=== PATIENT | female | born 1970 ===

== ENCOUNTER 2018-03-01 20:13 | Inpatient (IN) | payer SELFPAY ==
[2018-03-01 20:14] VITALS: BMI 26.6
[2018-03-01] MEDS ORDERED: Sodium Chloride 0.9% 1,000 ML IV ONE (20:42)
--- NOTE | 2018-03-01 20:46 | C.PDOC ---
History Of Present Illness 47 year old female presents to the ED c/o right sided chest pain for the past few days. Patient states pain worsens with deep breathing, patient reports she has had a cough as well. Patient denies fever, chills, nausea, vomit, palpit ations, SOB, recent travel, sick contacts. Chief Complaint (Nursing): Chest Pain History Per: Patient History/Exam Limitations: no limitations Onset/Duration Of Symptoms: Days Current Symptoms Are (Timing): Still Present Quality: "Pain" Exacerbating Factors: Deep Breathing Recent travel outside of the [place]: No Additional History Per: Patient Past Medical History Reviewed: Historical Data, Nursing Documentation, Vital Signs Vital Signs: Last Vital Signs Temp 99.5 F 03/01/18 20:25 Pulse 83 03/01/18 20:25 Resp 18 03/01/18 20:25 BP 152/98 H 03/01/18 20:25 Pulse Ox 98 03/01/18 20:25 - Medical History PMH: HTN (on meds, but can't remember name) Surgical History: No Surg Hx - [facility] INJECT/INFUSE NEC (01/16/13) Family History: States: Unknown Family Hx - Social History Hx Tobacco Use: No Hx Alcohol Use: No Hx Substance Use: No - Immunization History Hx Tetanus Toxoid Vaccination: Yes Hx Influenza Vaccination: Yes Hx Pneumococcal Vaccination: No Review Of Systems Constitutional: Negative for: Fever, Chills Cardiovascular: Positive for: Chest Pain. Negative for: Palpitations Respiratory: Positive for: Cough. Negative for: Shortness of Breath Gastrointestinal: Negative for: Nausea, Vomiting Skin: Negative for: Rash Neurological: Negative for: Weakness, Numbness Physical Exam - Physical Exam Appears: Non-toxic, No Acute Distress Skin: Normal Color, Warm, Dry Head: Atraumatic, Normacephalic Eye(s): bilateral: Normal Inspection Neck: Normal ROM, Supple Chest: Symmetrical, No Tenderness Cardiovascular: Rhythm Regular Respiratory: Normal Breath Sounds, No Rales, No Rhonchi, No Wheezing Gastrointestinal/Abdominal: Soft, No Tenderness, No Guarding, No Rebound Extremity: Normal ROM, No Tenderness, No Swelling Neurological/Psych: Oriented x3, Normal Speech, Normal Cognition Gait: Steady ED Course And Treatment - Laboratory Results Result Diagrams: 03/01/18 21:09 03/01/18 21:09 ECG: Interpreted By Me, Viewed By Me ECG Rhythm: Sinus Rhythm ECG Interpretation: Normal, No Acute Changes Interpretation Of ECG: NSR, normal tracings. Rate From EC O2 Sat by Pulse Oximetry: 98 (ON RA) Pulse Ox Interpretation: Normal - CT Scan/US CTA chest Other Rad Studies (CT/US): Read By Radiologist, Radiology Report Reviewed CT/US Interpretation: Date of service: 03/01/2018. Procedure. CTA Chest for PE. History. Chest pain. Elevated D-dimer. Comparison. None. Technique. Scans are obtained with the bolus injection of IV contrast media. . Intravenous contrast Dose: VISI 100 MLS. . Radiation dose: Total exam DLP = 377.69 mGy-cm. . This CT exam was performed using one or more of the following dose reduction techniques: Automated exposure control, adjustment of the mA and/or kV according to patient size, and/or use of iterative reconstruction technique. Findings. Note is made of extensive bilateral central pulmonary embolism with involvement of right and left central pulmonary arteries and extending to the virtually all bilateral segmental and subsegmental levels. The aorta is normal caliber and there is no dissection of the intima. . There is rounded opacity in the right lung base that may represent pulmonary infarct. . There is evidence of scattered bilateral pulmonary opacities that may represent pulmonary edema. Small hiatal hernia is seen. . No defect is seen in the pulmonary arteries to suggest pulmonary embolus. The lungs are fully expanded and there is no pleural effusion. . There are no enlarged mediastinal or hilar lymph nodes. . The bony structures appear intact. No change is seen in the included upper abdominal structures. . Impression. 1. Extensive bilateral PE as above. 2. There is rounded opacity in the right lung base that may represent pulmonary infarct. 3. There is evidence of scattered bilateral pulmonary opacities that may represent pulmonary edema. 4. Discussed with MARIE Quevedo at 11:50 AM EST. . Electronically signed on Mar 02, 2018 12:28:57 AM EDT by: Obi Church M.D., CHEMO Certified By [facility] & [facility]. Fellowship Trained MRI and CT Specialist Medical Decision Making Medical Decision Making: Plan: * EKG * Labs * CXR * IV fluids * Toradol [address] Ross spoken to and will accept the patient for admission. ICU filtration supervisor Dr. Angela Benson called, came and evaluated the patient at bedside and states patient is stable for telemetry admission with lovenox. Disposition Discussed With : Chung Ross Doctor Will See Patient In The: Hospital Counseled Patient/Family Regarding: Diagnosis - Disposition Disposition: HOSPITALIZED Disposition Time: 00:10 Condition: STABLE Forms: [facility] (Maldivian) - Clinical Impression Clinical Impression: Chest pain, Bilateral pulmonary embolism - Scribe Statement The provider has reviewed the documentation as recorded by the Scribe Jonas Foreman All medical record entries made by the Scribe were at my direction and personally dictated by me. I have reviewed the chart and agree that the record accurately reflects my personal performance of the history, physical exam, medical decision making, and the department course for this patient. I have also personally directed, reviewed, and agree with the discharge instructions and di sposition.
[2018-03-01 21:14] LABS: BASO % 0.5 % (0.0-2.0); EOS # 0.1 K/uL (0.0-0.7); EOS % 1.9 % (0.0-4.0); LYMPH # 1.8 K/uL (1.0-4.3); MEAN CORPUSCULAR HEMOGLOBIN 19.6 pg (27.0-31.0); MEAN CORPUSCULAR HGB CONC 31.3 g/dL (33.0-37.0); MEAN PLATELET VOLUME 7.5 fL (7.2-11.7); MONO # 0.5 K/uL (0.0-0.8); NEUT # 4.3 K/uL (1.8-7.0); NEUT % 63.6 % (50.0-75.0); RBC 4.49 Mil/uL (3.80-5.20); RED CELL DISTRIBUTION WIDTH 20.2 % (11.5-14.5)
[2018-03-01 21:20] LABS: HEMOGLOBIN 8.8 g/dL (11.0-16.0); MEAN CELL VOLUME 62.5 fL (81.0-99.0); WHITE BLOOD COUNT 6.8 K/uL (4.8-10.8)
[2018-03-01 21:23] LABS: INR 1.1; PROTHROMBIN TIME 11.6 SECONDS (9.7-12.2)
[2018-03-01 21:27] LABS: ALB/GLOB RATIO 1.1 (1.0-2.1); ALBUMIN 3.9 g/dL (3.5-5.0); ALT/SGPT 13 U/L (9-52); AST/SGOT 20 U/L (14-36); BLOOD UREA NITROGEN 17 mg/dL (7-17); CALCIUM 8.9 mg/dl (8.6-10.4); GFR NON-AFRICAN AMERICAN > 60
[2018-03-01] MEDS ORDERED: Iodixanol 320 MG/ML 100 ML BOTTLE IV ONE (21:37)
[2018-03-01] MEDS ORDERED: Sodium Chloride 0.9% 1,000 ML ONE (21:46)
[2018-03-02] MEDS ORDERED: Enoxaparin 80 mg Syringe SC STA (00:13)
[2018-03-02] MEDS ORDERED: Enoxaparin 80 mg Syringe ONE (00:30)
[2018-03-02 00:34] LABS: B-TYPE NATRIURETIC PEPTIDE 307 pg/mL (0-450)
--- NOTE | 2018-03-02 01:43 | CP.PCM.HP ---
Addendum entered and electronically signed by Chung Ross MD 03/02/18 07:55: Will consult hematology, grades 9 thru 12 visiting teacher to assist in planning the course. Addendum entered and electronically signed by Chung Ross MD 03/02/18 07:46: Patient will need planned treatment, as the risk of menorrhagia bleeding will worse with anticoagulation, especially when she is off the HRT, once the patient is on anticoagulation the active clots may stabilize, and surgery to hysterectomy vs fibroid removal may be planned. In case the bleeding is active and surgery could not be performed patient may need temporary on hormone replacement and anticoagulation assuming the balance between clotting and not is shifted toward not on anticoagulation. Original Note: <Danitza Sullivan - Last Filed: 03/02/18 01:43> History of Present Illness - History of Present Illness History of Present Illness: Danitza Sullivan PGY1 Progress Note for Dr. Ross Pt is a 47yo F with PMH of HTN, fibroids who presents to the ED with shortness of breath for 3 days. She feels it at rest mostly, but claims it was provoked yesterday with housework. She reports that she feels it on the R side than left. She denies a previous history of this. She claims to have recently started OCPs for heavy vaginal bleeding which she attributes to fibroids. She reports associated dizziness, but denies any chest pain, palpitations, sweating, nausea, vomiting, diarrhea. SxH: ectopic removal FamH: mom- DM SocH: denies tobacco, etoh, or recreational drug use Meds: lisinopril 5 and sprintec (OCP) Allergies: NKDA PMD: Dr. Cummings Present on Admission - Present on Admission Any Indicators Present on Admission: Yes History of DVT/PE: Yes Review of Systems - Review of Systems Review of Systems: as per HPI Past Patient History - Past Social History Smoking Status: Never Smoked - CARDIAC Hx Hypertension: Yes (on meds, but can't remember name) - GENITOURINARY/GYNECOLOGICAL Other/Comment: ectopic - PSYCHIATRIC Hx Substance Use: No - SURGICAL HISTORY Hx Surgeries: Yes Other/Comment: ectopic - ANESTHESIA Hx Anesthesia: Yes Hx Anesthesia Reactions: No Meds Allergies/Adverse Reactions: Allergies Allergy/AdvReac Type Severity Reaction Status Date / Time No Known Allergies Allergy Verified 03/01/18 20:33 Physical Exam - Constitutional Appears: Well, No Acute Distress - Head Exam Head Exam: ATRAUMATIC, NORMOCEPHALIC - Eye Exam Eye Exam: EOMI, Normal appearance, PERRL Pupil Exam: NORMAL ACCOMODATION - ENT Exam ENT Exam: Mucous Membranes Moist, Normal Exam - Neck Exam Neck exam: Positive for: Normal Inspection Additional comments: no JVD b/l - Respiratory Exam Respiratory Exam: Clear to Auscultation Bilateral, NORMAL BREATHING PATTERN. absent: Rales, Rhonchi, Wheezes - Cardiovascular Exam Cardiovascular Exam: REGULAR RHYTHM, +S1, +S2. absent: Gallop, Rubs, Systolic Murmur - GI/Abdominal Exam GI & Abdominal Exam: Normal Bowel Sounds, Soft. absent: Distended, Tenderness - Extremities Exam Extremities exam: Positive for: normal inspection. Negative for: pedal edema, tenderness - Neurological Exam Neurological exam: Alert, Oriented x3 - Psychiatric Exam Psychiatric exam: Normal Affect, Normal Mood - Skin Skin Exam: Normal Color Results - Vital Signs Recent Vital Signs: Last Vital Signs Temp 99.5 F 03/01/18 20:25 Pulse 72 03/02/18 01:30 Resp 17 03/02/18 01:30 BP 166/97 H 03/02/18 01:30 Pulse Ox 98 03/02/18 01:30 - Labs Result Diagrams: 03/01/18 21:09 03/01/18 21:09 Labs: Laboratory Results - last 24 hr 03/01/18 03/01/18 03/01/18 21:09 21:09 21:09 WBC 6.8 D RBC 4.49 Hgb 8.8 L D Hct 28.1 L MCV 62.5 L D MCH 19.6 L MCHC 31.3 L RDW 20.2 H Plt Count 508 H D MPV 7.5 Neut % (Auto) 63.6 Lymph % (Auto) 27.0 [place] % (Auto) 7.0 Eos % (Auto) 1.9 Baso % (Auto) 0.5 Neut # (Auto) 4.3 Lymph # (Auto) 1.8 [place] # (Auto) 0.5 Eos # (Auto) 0.1 Baso # (Auto) 0.0 Differential Comment PT 11.6 INR 1.1 APTT 26 D-Dimer, Quantitative 781 H Sodium 139 Potassium 3.8 Chloride 104 Carbon Dioxide 23 Anion Gap 15 BUN 17 Creatinine 0.9 Est GFR ( Amer) > 60 Est GFR (Non-Af Amer) > 60 Random Glucose 132 H Calcium 8.9 Total Bilirubin 0.5 AST 20 ALT 13 Alkaline Phosphatase 68 Troponin I < 0.0120 NT-Pro-B Natriuret Pep Total Protein 7.4 Albumin 3.9 Globulin 3.6 Albumin/Globulin Ratio 1.1 03/02/18 00:11 WBC RBC Hgb Hct MCV MCH MCHC RDW Plt Count MPV Neut % (Auto) Lymph % (Auto) [place] % (Auto) Eos % (Auto) Baso % (Auto) Neut # (Auto) Lymph # (Auto) [place] # (Auto) Eos # (Auto) Baso # (Auto) Differential Comment PT INR APTT D-Dimer, Quantitative Sodium Potassium Chloride Carbon Dioxide Anion Gap BUN Creatinine Est GFR ( Amer) Est GFR (Non-Af Amer) Random Glucose Calcium Total Bilirubin AST ALT Alkaline Phosphatase Troponin I < 0.0120 NT-Pro-B Natriuret Pep 307 Total Protein Albumin Globulin Albumin/Globulin Ratio Assessment & Plan - Assessment and Plan (Free Text) Assessment: 47yo F with PMH HTN and fibroids presents to ED with shortness of breath, found to have b/l PE and is admitted for further evaluation and treatment. Plan: B/L PE - CT angio: b/l PE - pt with shortness of breath, recently started taking combination OCP - D-dimer: 781 - BNP: 307 - EKG: NSR @82 bpm - no evidence of R heart strain - lovenox 80 SC q12 - f/u CT abd/pel - f/u b/l LE doppler - f/u ECHO Anemia - H/H: 8.8/28.1 - microcytic - likely secondary to h/o heavy vaginal bleeding - start feosol 325 daily - f/u AM CBC HTN - BP 166/97 - continue home lisinopril Uterine Fibroids - Pelvic US (10/10): 3.9mm intramural/subserosal uterine fibroid - likely cause of heavy vaginal bleeding - d/c OCP - consider outpt management PPX: DVT: on therapeutic lovenox regular diet Case seen and plan discussed with Dr. Ross <Chung Ross P - Last Filed: 03/02/18 07:00> Results - Vital Signs Recent Vital Signs: Last Vital Signs Temp 98.7 F 03/02/18 02:00 Pulse 76 03/02/18 02:05 Resp 20 03/02/18 02:00 BP 159/110 H 03/02/18 02:00 Pulse Ox 98 03/02/18 02:00 - Labs Result Diagrams: 03/01/18 21:09 03/01/18 21:09 Labs: Laboratory Results - last 24 hr 03/01/18 03/01/18 03/01/18 21:09 21:09 21:09 WBC 6.8 D RBC 4.49 Hgb 8.8 L D Hct 28.1 L MCV 62.5 L D MCH 19.6 L MCHC 31.3 L RDW 20.2 H Plt Count 508 H D MPV 7.5 Neut % (Auto) 63.6 Lymph % (Auto) 27.0 [place] % (Auto) 7.0 Eos % (Auto) 1.9 Baso % (Auto) 0.5 Neut # (Auto) 4.3 Lymph # (Auto) 1.8 [place] # (Auto) 0.5 Eos # (Auto) 0.1 Baso # (Auto) 0.0 Differential Comment PT 11.6 INR 1.1 APTT 26 D-Dimer, Quantitative 781 H Sodium 139 Potassium 3.8 Chloride 104 Carbon Dioxide 23 Anion Gap 15 BUN 17 Creatinine 0.9 Est GFR ( Amer) > 60 Est GFR (Non-Af Amer) > 60 Random Glucose 132 H Calcium 8.9 Total Bilirubin 0.5 AST 20 ALT 13 Alkaline Phosphatase 68 Troponin I < 0.0120 NT-Pro-B Natriuret Pep Total Protein 7.4 Albumin 3.9 Globulin 3.6 Albumin/Globulin Ratio 1.1 03/02/18 00:11 WBC RBC Hgb Hct MCV MCH MCHC RDW Plt Count MPV Neut % (Auto) Lymph % (Auto) [place] % (Auto) Eos % (Auto) Baso % (Auto) Neut # (Auto) Lymph # (Auto) [place] # (Auto) Eos # (Auto) Baso # (Auto) Differential Comment PT INR APTT D-Dimer, Quantitative Sodium Potassium Chloride Carbon Dioxide Anion Gap BUN Creatinine Est GFR ( Amer) Est GFR (Non-Af Amer) Random Glucose Calcium Total Bilirubin AST ALT Alkaline Phosphatase Troponin I < 0.0120 NT-Pro-B Natriuret Pep 307 Total Protein Albumin Globulin Albumin/Globulin Ratio Attending/Attestation - Attestation I have personally seen and examined this patient.: Yes I have fully participated in the care of the patient.: Yes I have reviewed all pertinent clinical information: Yes Notes (Text): Assessment * Extensive b/l central PE with hemodynamic stability at rest and no hypoxia at rest, no signs of RV strain on initial assessment * Hypercoagulability recent risk factor OC pill for menorrhagia, with h/o uterine fibroids * Microcytic anemia most likely due to above * No family h/o hypercoagulable state, no h/o smoking * On CT cyst noticed in left kidney on partial evaluation of upper abd in Chest CT Plan * Therapeutic anticoagulation, started on lovenox * Echo, LE venous dopplers * OC pill held * CT abd/pelvis ordered to assess renal cyst * Patient has high risk of blood loss due to anticoagulation and possibilty of prbc need in future, continue iron, fa for increased production mean while, will probably need surg in near future, to prevent recurrence of similar event.
--- NOTE | 2018-03-02 01:45 | CP.PCM.CON ---
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 Patient notes pain worsen upon deep breathing. Patient denies any dyspnea, deneis any dizizness, denies any palpitation. pmx: HTn meds: lisinopril and progrsterone allergeis: denies Review of Systems - Review of Systems All systems: reviewed and no additional remarkable complaints except Past Patient History - Tetanus Immunizations Tetanus Immunization: Unknown - Past Social History Smoking Status: Never Smoked - CARDIAC Hx Hypertension: Yes (on meds, but can't remember name) - GENITOURINARY/GYNECOLOGICAL Other/Comment: ectopic - PSYCHIATRIC Hx Substance Use: No - SURGICAL HISTORY Hx Surgeries: Yes Other/Comment: ectopic - ANESTHESIA Hx Anesthesia: Yes Hx Anesthesia Reactions: No Meds Allergies/Adverse Reactions: Allergies Allergy/AdvReac Type Severity Reaction Status Date / Time No Known Allergies Allergy Verified 03/01/18 20:33 - Medications Medications: Current Medications Enoxaparin Sodium (Lovenox) 80 mg SC Q12 GABY Ferrous Sulfate (Feosol) 325 mg PO DAILY GABY Sodium Chloride (Sodium Chloride 0.9%) 1,000 mls @ 100 mls/hr IV .Q10H ONE Stop: 03/02/18 06:41 Last Admin: 03/01/18 21:40 Dose: 100 mls/hr Physical Exam - Head Exam Head Exam: ATRAUMATIC, NORMAL INSPECTION, NORMOCEPHALIC - Eye Exam Pupil Exam: NORMAL ACCOMODATION - ENT Exam ENT Exam: Mucous Membranes Moist - Respiratory Exam Respiratory Exam: Clear to Auscultation Bilateral, Rales, NORMAL BREATHING PATTERN Additional comments: rales right lower lobe - Cardiovascular Exam Cardiovascular Exam: REGULAR RHYTHM, +S1, +S2. absent: Tachycardia, Systolic Murmur - GI/Abdominal Exam GI & Abdominal Exam: Normal Bowel Sounds, Soft. absent: Guarding, Hernia, Rebound, Rigid - Extremities Exam Extremities exam: Positive for: full ROM, normal capillary refill, normal inspection, pedal pulses present. Negative for: joint swelling - Neurological Exam Neurological exam: Alert, CN II-XII Intact, Oriented x3 - Skin Skin Exam: Normal Color Results - Vital Signs Recent Vital Signs: Last Vital Signs Temp 99.5 F 03/01/18 20:25 Pulse 72 03/02/18 01:30 Resp 17 03/02/18 01:30 BP 166/97 H 03/02/18 01:30 Pulse Ox 98 03/02/18 01:30 - Labs Result Diagrams: 03/01/18 21:09 03/01/18 21:09 Labs: Laboratory Results - last 24 hr 03/01/18 03/01/18 03/01/18 21:09 21:09 21:09 WBC 6.8 D RBC 4.49 Hgb 8.8 L D Hct 28.1 L MCV 62.5 L D MCH 19.6 L MCHC 31.3 L RDW 20.2 H Plt Count 508 H D MPV 7.5 Neut % (Auto) 63.6 Lymph % (Auto) 27.0 [place] % (Auto) 7.0 Eos % (Auto) 1.9 Baso % (Auto) 0.5 Neut # (Auto) 4.3 Lymph # (Auto) 1.8 [place] # (Auto) 0.5 Eos # (Auto) 0.1 Baso # (Auto) 0.0 Differential Comment PT 11.6 INR 1.1 APTT 26 D-Dimer, Quantitative 781 H Sodium 139 Potassium 3.8 Chloride 104 Carbon Dioxide 23 Anion Gap 15 BUN 17 Creatinine 0.9 Est GFR ( Amer) > 60 Est GFR (Non-Af Amer) > 60 Random Glucose 132 H Calcium 8.9 Total Bilirubin 0.5 AST 20 ALT 13 Alkaline Phosphatase 68 Troponin I < 0.0120 NT-Pro-B Natriuret Pep Total Protein 7.4 Albumin 3.9 Globulin 3.6 Albumin/Globulin Ratio 1.1 03/02/18 00:11 WBC RBC Hgb Hct MCV MCH MCHC RDW Plt Count MPV Neut % (Auto) Lymph % (Auto) [place] % (Auto) Eos % (Auto) Baso % (Auto) Neut # (Auto) Lymph # (Auto) [place] # (Auto) Eos # (Auto) Baso # (Auto) Differential Comment PT INR APTT D-Dimer, Quantitative Sodium Potassium Chloride Carbon Dioxide Anion Gap BUN Creatinine Est GFR ( Amer) Est GFR (Non-Af Amer) Random Glucose Calcium Total Bilirubin AST ALT Alkaline Phosphatase Troponin I < 0.0120 NT-Pro-B Natriuret Pep 307 Total Protein Albumin Globulin Albumin/Globulin Ratio Assessment & Plan - Assessment and Plan (Free Text) Assessment: -PE: patient has b/l PE, suspect chronic as there are no signs of right heart strain, BNP normal, trop neg, consider lovenox 1 mg/kg (noraml kidney function), cehck echo and LE dopplers -Anemia: suspect MCV low, menorrhagia related, check fecal occult blood, check iron profile, ferritin and TIBC, likely iron deficiency anemia -menorrhagia: obtain quiller runner eval for possible hormonal ring -dvt ppx on lovenox -pud ppx consider oral pepcid -Patient was informed of her diagnosis and risks, benefits and alternatives. -please obtain social services technician consult for medicaid forms (patient has no insurance) -age appropriate cancer screening Patient does not have insurance. Would start patient on anticoagulation, consi sammie lovenox and oral coumadin (cheaper than NOAC). Patient remains hemodynamically stable and saturating 99% on room air. pending echo, LE dopplers, fecal occult blood and christian science reader consult for age approp riate cancer screening. Please call ICU if patient's clinical status worsens. - Date & Time Date: 03/02/18 Time: 01:53
[2018-03-02 07:43] LABS: BASO % 0.6 % (0.0-2.0); EOS # 0.3 K/uL (0.0-0.7); EOS % 4.4 % (0.0-4.0); HEMOGLOBIN 8.5 g/dL (11.0-16.0); LYMPH % 33.4 % (20.0-40.0); MEAN CELL VOLUME 62.5 fL (81.0-99.0); MEAN CORPUSCULAR HEMOGLOBIN 19.6 pg (27.0-31.0); MEAN CORPUSCULAR HGB CONC 31.4 g/dL (33.0-37.0); MEAN PLATELET VOLUME 7.5 fL (7.2-11.7); MONO # 0.5 K/uL (0.0-0.8); MONO % 7.8 % (0.0-10.0); NEUT # 3.2 K/uL (1.8-7.0); NEUT % 53.8 % (50.0-75.0); RBC 4.34 Mil/uL (3.80-5.20); RED CELL DISTRIBUTION WIDTH 20.3 % (11.5-14.5); WHITE BLOOD COUNT 5.9 K/uL (4.8-10.8)
[2018-03-02 08:04] LABS: ALB/GLOB RATIO 1.1 (1.0-2.1); ALBUMIN 3.4 g/dL (3.5-5.0); ALT/SGPT 11 U/L (9-52); AST/SGOT 11 U/L (14-36); BLOOD UREA NITROGEN 14 mg/dL (7-17); CALCIUM 8.5 mg/dl (8.6-10.4); GFR NON-AFRICAN AMERICAN > 60
[2018-03-02 08:18] LABS: IRON 11 ug/dL (37-170)
[2018-03-02 08:30] LABS: % IRON SATURATION 3 (20-55); FERRITIN 5.1 ng/mL; TOTAL IRON BINDING CAPACITY 356 ug/dL (250-450)
--- NOTE | 2018-03-02 08:46 | RAD ---
HISTORY: Chest pain COMPARISON: No prior. TECHNIQUE: Chest PA and lateral FINDINGS: LINES AND TUBES: None. LUNG AND PLEURA: The lungs are well inflated and clear. There is a small right pleural effusion. No pneumothorax. HEART AND MEDIASTINUM: The heart is not enlarged. The hilar and mediastinal contours are within normal limits. SKELETAL STRUCTURES: The bony structures are within normal limits for the patient's age. VISUALIZED UPPER ABDOMEN: Normal. OTHER FINDINGS: None. IMPRESSION: Small right pleural effusion.
--- NOTE | 2018-03-02 09:21 | CP.PCM.PN ---
Subjective - Date & Time of Evaluation Date of Evaluation: 03/02/18 Time of Evaluation: 08:40 - Subjective Subjective: Pt examined at bedside. No acute events overnight. Pt reports she continues to have right sided chest/flank/back pain, worse w/ deep inspiration. Pt reports she has just begun her period, and bleeding lightly. Pt denies SOB, abd pain, nausea. Pt denies any history of clots Objective - Vital Signs/Intake and Output Vital Signs (last 24 hours): Temp Pulse Resp BP Pulse Ox 98.1 F 82 18 113/74 98 03/02/18 07:00 03/02/18 07:15 03/02/18 07:00 03/02/18 07:00 03/02/18 07:00 - Medications Medications: Current Medications Enoxaparin Sodium (Lovenox) 80 mg SC Q12 GABY Ferrous Sulfate (Feosol) 325 mg PO DAILY GABY Lisinopril (Zestril) 5 mg PO DAILY GABY - Labs Labs: 03/02/18 07:34 03/02/18 07:34 PT 11.6 SECONDS (9.7-12.2) 03/01/18 21:09 INR 1.1 03/01/18 21:09 APTT 26 SECONDS (21-34) 03/01/18 21:09 - Constitutional Appears: No Acute Distress - Head Exam Head Exam: ATRAUMATIC, NORMAL INSPECTION, NORMOCEPHALIC - Eye Exam Eye Exam: EOMI, Normal appearance - ENT Exam ENT Exam: Mucous Membranes Moist, Normal Exam - Neck Exam Neck Exam: Normal Inspection - Respiratory Exam Respiratory Exam: Decreased Breath Sounds, Clear to Ausculation Bilateral, NORMAL BREATHING PATTERN. absent: Rhonchi, Wheezes - Cardiovascular Exam Cardiovascular Exam: REGULAR RHYTHM, +S1, +S2. absent: Tachycardia, Murmur - GI/Abdominal Exam GI & Abdominal Exam: Soft, Normal Bowel Sounds. absent: Distended, Tenderness - Extremities Exam Extremities Exam: Normal Capillary Refill, Normal Inspection. absent: Calf Tenderness, Pedal Edema - Neurological Exam Neurological Exam: Alert, Awake, Oriented x3 - Psychiatric Exam Psychiatric exam: Normal Affect, Normal Mood - Skin Skin Exam: Dry, Intact, Normal Color, Warm Assessment and Plan - Assessment and Plan (Free Text) Assessment: 47 yo F w/ PMHx of HTN and fibroids admitted w/ diffuse B/L PEs PE -CT read: extensive B/L PE -f/u LE dopplers -hormones for menorrhagia 2/2 fibroids stopped -Lovenox 70mg q12 -f/u hypercoaguable labs -Heme consult Dr. Rangel Fibroids -pt refused pelic exam w/ sign erector -Template Cutter consult Dr. Walker Anemia -continue to monitor HTN -lisinopril 5mg po qd
[2018-03-02] MEDS ORDERED: Enoxaparin 80 mg Syringe SC SCH (10:00)
--- NOTE | 2018-03-02 11:05 | CT ---
Date of service: 03/01/2018 CTA chest PE protocol Indication: Chest pain/elevated D-dimer Technique: Contiguous axial images were obtained through the chest with intravenous contrast enhancement. Sagittal and coronal reconstructions were generated and reviewed. This CT exam was performed using 1 or more of the following dose reduction techniques: Automated exposure control, adjustment of the MAA and/or kV according to patient size, and/or use of iterative reconstruction technique. IV contrast: 100 mL Visipaque IV Radiation dose (DLP): 377.69 MGy-cm. Comparison: Chest x-ray performed 03/01/18 Findings: Visualized portions of the inferior thyroid gland appear unremarkable. The mediastinal and hilar vascular structures appear within normal limits. The heart appears within normal limits of size. Bilateral pulmonary emboli are identified extending from the right left central pulmonary arteries into bilateral segmental/subsegmental levels. Mild rounded opacity at the right lung base. No pleural effusion. No pneumothorax. Limited visualized portions of the upper abdomen; partially imaged 3.7 x 4.4 cm, 7 HU hypodensity, consistent with cyst. Mild degenerative changes. Impression: Extensive bilateral pulmonary emboli as above. Mild rounded opacity at the right lung base may reflect infarction, infiltrate, or atelectasis. Preliminary impression was provided by [facility]. Findings discussed by radiologist Dr. Randall with MARIE Quevedo at 11:50 a.m. on 03/01/18
--- NOTE | 2018-03-02 13:36 | CT ---
Date of service: 03/02/2018 PROCEDURE: CT Abdomen and Pelvis with Oral contrast. HISTORY: pt with b/l pe COMPARISON: Correlation made CTA chest 03/11/2018. TECHNIQUE: Contiguous axial images of the abdomen and pelvis. Coronal and Sagittal reformats generated. Radiation dose: Total exam DLP = 624.73 mGy-cm. This CT exam was performed using one or more of the following dose reduction techniques: Automated exposure control, adjustment of the mA and/or kV according to patient size, and/or use of iterative reconstruction technique. FINDINGS: LOWER THORAX: Small right-sided effusion with suspected and associated minor right basilar atelectasis. LIVER: Unremarkable. No gross lesion or ductal dilatation. GALLBLADDER AND BILE DUCTS: There is dense material within the lumen of the gallbladder likely representing vicarious excretion of intravenous contrast material from recent CTA of the chest 03/01/2018 PANCREAS: Unremarkable. No m the unenhanced pancreas appears unremarkable. SPLEEN: Unremarkable. No splenomegaly. ADRENALS: No adrenal lesions.. KIDNEYS AND URETERS: . There is a large exophytic cyst arising from the upper pole left kidney which measures approximately 4.5 x 4.5 cm. There also appears to be some residual contrast material in both renal collecting systems. No evidence of hydronephrosis. BLADDER: Urinary bladder also contains dilute excreted intravenous contrast material. No evidence of intraluminal urinary bladder calculi. REPRODUCTIVE: Slightly prominent/bulky appearing uterus with questionable exophytic fibroid along the left the uterine fundus versus left ovary. APPENDIX: Normal-appearing appendix. BOWEL: Evaluation of the bowel is somewhat limited due to the lack of oral contrast material. Stomach is distended with food debris liquid and air. Visualized loops of small bowel exhibit normal contour and caliber. No evidence of acute mechanical small bowel obstruction. Large amount of stool is seen throughout the cecum ascending and transverse and less so the proximal descending colon consistent with mild fecal retention/constipation. PERITONEUM: There is a small amount of free fluid in the cul de sac.. No free air. Small hiatal hernia. LYMPH NODES: Unremarkable. No enlarged lymph nodes. VASCULATURE: Unremarkable. No aortic aneurysm. BONES: Minor multilevel degenerative spondylosis of the lower thoracic and lumbar spine. OTHER FINDINGS: None. IMPRESSION: Small right-sided effusion and minor right basilar atelectasis. Large exophytic left renal cyst. Questionable small uterine fibroid as above versus left ovary. Findings consistent with mild constipation. Small amount of free fluid within the cul de sac.
--- NOTE | 2018-03-02 17:24 | CP.PCM.CON ---
<Darrel Turcios - Last Filed: 03/02/18 17:04> History of Present Illness - History of Present Illness History of Present Illness: SOLAR ELECTRIC PRACTITIONER Consult Note CC "vaginal bleeding, fibroids" HPI: Patient is a 47 year old female with history of hypertension, anemia and fibroids who was initially admitted for 3 day history of chest pain and shortness of breath. CT angio revealed bilateral PE and patient is currently treated with Lovenox 80mg SC Q12. SOLAR ELECTRIC PRACTITIONER consulted for history of fibroid for which patient was recently started on OCPs. Patient was recently started on OCP Sprintec [address] Ayala, her architectural drafting instructor at [facility] in [place]. She was started on OCPs rec ently because patient reportedly had a 2 month history of daily heavy vaginal bleeding. She was told she had a fibroid that is approximately the "size of an egg". Pelvic US from September 2017 revealed 3.9mm intramural/subserosal uterine fibroid. As per patient, OCPs helped with her daily vaginal bleeding. Patient states she only had 4 pills left on her 28 day pack of pills prior to her admission, and started having some mild vaginal bleeding today. She denies abdominal pain, nausea, vomiting currently. She denies chest pain and shortness of breath currently. She states she discussed the possibility of surgery with her architectural drafting instructor however patient states she does not have insurance. PMH: HTN, fibroids, anemia PSH: ectopic 2010 Meds: Lisinopril 5mg daily, Fe pills daily, Family hx: Mother aged 75, has HTN, DM. No history of cancer of breast, ovary or uterus in family. Social hx: Denies alcohol, tobacco and drug use. 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 Lives with her 2 children, aged 27 and 25. POBhx: x2 without complication, 2 children - 27 year old male, and 25 year old female. Age of menarche- 14, periods last 6 days and comes every 28 days. (+) Known prior history of fibroid, no prior history of ovarian cyst. Last Pap smear 2014, no prior history of STIs. Not sexually active. Review of Systems - Constitutional Constitutional: absent: Chills, Fever - EENT Eyes: absent: Change in Vision Ears: absent: Decreased Hearing - Cardiovascular Cardiovascular: absent: Chest Pain, Dyspnea - Respiratory Respiratory: absent: Cough - Gastrointestinal Gastrointestinal: absent: Abdominal Pain, Diarrhea, Nausea, Vomiting - Genitourinary Genitourinary: absent: Dysuria, Hematuria - Reproductive: Female Reproductive:Female: Light Menses - Musculoskeletal Musculoskeletal: absent: Back Pain - Neurological Neurological: absent: Confusion, Headaches, Syncope - Psychiatric Psychiatric: absent: Anxiety, Depression Past Patient History - Tetanus Immunizations Tetanus Immunization: Unknown - Past Social History Smoking Status: Never Smoked - CARDIAC Hx Hypertension: Yes (on meds, but can't remember name) - MUSCULOSKELETAL/RHEUMATOLOGICAL Hx Falls: No - GENITOURINARY/GYNECOLOGICAL Other/Comment: ectopic - PSYCHIATRIC Hx Substance Use: No - SURGICAL HISTORY Hx Surgeries: Yes Other/Comment: ectopic - ANESTHESIA Hx Anesthesia: Yes Hx Anesthesia Reactions: No Meds Allergies/Adverse Reactions: Allergies Allergy/AdvReac Type Severity Reaction Status Date / Time No Known Allergies Allergy Verified 03/01/18 20:33 - Medications Medications: Current Medications Enoxaparin Sodium (Lovenox) 70 mg SC Q12 [facility] Ferrous Sulfate (Feosol) 325 mg PO DAILY [facility] Last Admin: 03/02/18 11:38 Dose: 325 mg Lisinopril (Zestril) 5 mg PO DAILY [facility] Last Admin: 03/02/18 11:39 Dose: 5 mg Physical Exam - Constitutional Appears: No Acute Distress - Head Exam Head Exam: ATRAUMATIC, NORMAL INSPECTION - Eye Exam Eye Exam: EOMI - ENT Exam ENT Exam: Mucous Membranes Moist - Neck Exam Neck exam: Positive for: Full Rom - Respiratory Exam Respiratory Exam: Clear to Auscultation Bilateral. absent: Decreased Breath Sounds - Cardiovascular Exam Cardiovascular Exam: REGULAR RHYTHM, +S1, +S2. absent: Gallop, Rubs, Systolic Murmur - GI/Abdominal Exam GI & Abdominal Exam: Normal Bowel Sounds, Soft. absent: Distended, Firm, Guarding, Mass, Tenderness - Exam Additional comments: Patient refused pelvic exam - Extremities Exam Extremities exam: Positive for: pedal pulses present. Negative for: calf tenderness - Back Exam Back exam: absent: CVA tenderness (L), CVA tenderness (R) - Neurological Exam Neurological exam: Alert, Oriented x3 - Skin Skin Exam: Dry, Intact, Warm Results - Vital Signs Recent Vital Signs: Last Vital Signs Temp 98.1 F 03/02/18 15:00 Pulse 69 03/02/18 15:00 Resp 20 03/02/18 15:00 BP 136/95 H 03/02/18 15:00 Pulse Ox 99 03/02/18 15:00 - Labs Result Diagrams: 03/02/18 07:34 03/02/18 07:34 Labs: Laboratory Results - last 24 hr 03/01/18 03/01/18 03/01/18 21:09 21:09 21:09 WBC 6.8 D RBC 4.49 Hgb 8.8 L D Hct 28.1 L MCV 62.5 L D MCH 19.6 L MCHC 31.3 L RDW 20.2 H Plt Count 508 H D MPV 7.5 Neut % (Auto) 63.6 Lymph % (Auto) 27.0 [place] % (Auto) 7.0 Eos % (Auto) 1.9 Baso % (Auto) 0.5 Neut # (Auto) 4.3 Lymph # (Auto) 1.8 [place] # (Auto) 0.5 Eos # (Auto) 0.1 Baso # (Auto) 0.0 Differential Comment Retic Count PT 11.6 INR 1.1 APTT 26 D-Dimer, Quantitative 781 H Sodium 139 Potassium 3.8 Chloride 104 Carbon Dioxide 23 Anion Gap 15 BUN 17 Creatinine 0.9 Est GFR ( Amer) > 60 Est GFR (Non-Af Amer) > 60 Random Glucose 132 H Calcium 8.9 Iron TIBC % Saturation Transferrin Ferritin Total Bilirubin 0.5 AST 20 ALT 13 Alkaline Phosphatase 68 Troponin I < 0.0120 NT-Pro-B Natriuret Pep Total Protein 7.4 Albumin 3.9 Globulin 3.6 Albumin/Globulin Ratio 1.1 Vitamin B12 Folate Beta HCG, Quant 03/02/18 03/02/18 03/02/18 00:11 07:34 07:34 WBC 5.9 RBC 4.34 Hgb 8.5 L Hct 27.1 L MCV 62.5 L MCH 19.6 L MCHC 31.4 L RDW 20.3 H Plt Count 491 H MPV 7.5 Neut % (Auto) 53.8 Lymph % (Auto) 33.4 [place] % (Auto) 7.8 Eos % (Auto) 4.4 H Baso % (Auto) 0.6 Neut # (Auto) 3.2 Lymph # (Auto) 2.0 [place] # (Auto) 0.5 Eos # (Auto) 0.3 Baso # (Auto) 0.0 Differential Comment Retic Count 1.9 H PT INR APTT D-Dimer, Quantitative Sodium 143 Potassium 4.0 Chloride 106 Carbon Dioxide 23 Anion Gap 18 BUN 14 Creatinine 0.8 Est GFR ( Amer) > 60 Est GFR (Non-Af Amer) > 60 Random Glucose 82 Calcium 8.5 L Iron TIBC % Saturation Transferrin Ferritin 5.1 Total Bilirubin 0.4 AST 11 L D ALT 11 Alkaline Phosphatase 63 Troponin I < 0.0120 NT-Pro-B Natriuret Pep 307 Total Protein 6.5 Albumin 3.4 L Globulin 3.1 Albumin/Globulin Ratio 1.1 Vitamin B12 Folate Beta HCG, Quant < 2.39 03/02/18 03/02/18 03/02/18 07:34 07:34 07:34 WBC RBC Hgb Hct MCV MCH MCHC RDW Plt Count MPV Neut % (Auto) Lymph % (Auto) [place] % (Auto) Eos % (Auto) Baso % (Auto) Neut # (Auto) Lymph # (Auto) [place] # (Auto) Eos # (Auto) Baso # (Auto) Differential Comment Retic Count PT INR APTT D-Dimer, Quantitative Sodium Potassium Chloride Carbon Dioxide Anion Gap BUN Creatinine Est GFR ( Amer) Est GFR (Non-Af Amer) Random Glucose Calcium Iron 11 L TIBC 356 % Saturation 3 L Transferrin 263.91 Ferritin Total Bilirubin AST ALT Alkaline Phosphatase Troponin I NT-Pro-B Natriuret Pep Total Protein Albumin Globulin Albumin/Globulin Ratio Vitamin B12 259 Folate 9.0 Beta HCG, Quant Assessment & Plan - Assessment and Plan (Free Text) Assessment: 47 year old female with history of HTN, anemia, fibroids who was initially admitted for 3 day history of chest pain and shortness of breath. Patient was found to have bilateral PE on CT angio. Patient was recently started on OCPs for history of heavy vaginal bleeding and fibroids. Patient started mild vaginal bleeding today. Plan: A/P Vaginal bleeding -Patient declined pelvic exam -Likely secondary to normal menses, since patient only had 4 pills left -Discontinue OCPs -Follow up with outpatient SOLAR ELECTRIC PRACTITIONER on discharge. Darrel Turcios, PGY1 Case discussed with Dr. Shantal Arellano <Shantal Arellano - Last Filed: 10/08/18 19:14> Meds - Medications Medications: Current Medications Enoxaparin Sodium (Lovenox) 70 mg SC Q12 [facility] Ferrous Sulfate (Feosol) 325 mg PO DAILY [facility] Last Admin: 03/02/18 11:38 Dose: 325 mg Lisinopril (Zestril) 5 mg PO DAILY [facility] Last Admin: 03/02/18 11:39 Dose: 5 mg Results - Vital Signs Recent Vital Signs: Last Vital Signs Temp 98.1 F 03/02/18 15:00 Pulse 69 03/02/18 15:00 Resp 20 03/02/18 15:00 BP 136/95 H 03/02/18 15:00 Pulse Ox 99 03/02/18 15:00 - Labs Result Diagrams: 03/02/18 07:34 03/02/18 07:34 Labs: Laboratory Results - last 24 hr 03/01/18 03/01/18 03/01/18 21:09 21:09 21:09 WBC 6.8 D RBC 4.49 Hgb 8.8 L D Hct 28.1 L MCV 62.5 L D MCH 19.6 L MCHC 31.3 L RDW 20.2 H Plt Count 508 H D MPV 7.5 Neut % (Auto) 63.6 Lymph % (Auto) 27.0 [place] % (Auto) 7.0 Eos % (Auto) 1.9 Baso % (Auto) 0.5 Neut # (Auto) 4.3 Lymph # (Auto) 1.8 [place] # (Auto) 0.5 Eos # (Auto) 0.1 Baso # (Auto) 0.0 Differential Comment Retic Count PT 11.6 INR 1.1 APTT 26 D-Dimer, Quantitative 781 H Sodium 139 Potassium 3.8 Chloride 104 Carbon Dioxide 23 Anion Gap 15 BUN 17 Creatinine 0.9 Est GFR ( Amer) > 60 Est GFR (Non-Af Amer) > 60 Random Glucose 132 H Calcium 8.9 Iron TIBC % Saturation Transferrin Ferritin Total Bilirubin 0.5 AST 20 ALT 13 Alkaline Phosphatase 68 Troponin I < 0.0120 NT-Pro-B Natriuret Pep Total Protein 7.4 Albumin 3.9 Globulin 3.6 Albumin/Globulin Ratio 1.1 Vitamin B12 Folate Beta HCG, Quant 03/02/18 03/02/18 03/02/18 00:11 07:34 07:34 WBC 5.9 RBC 4.34 Hgb 8.5 L Hct 27.1 L MCV 62.5 L MCH 19.6 L MCHC 31.4 L RDW 20.3 H Plt Count 491 H MPV 7.5 Neut % (Auto) 53.8 Lymph % (Auto) 33.4 [place] % (Auto) 7.8 Eos % (Auto) 4.4 H Baso % (Auto) 0.6 Neut # (Auto) 3.2 Lymph # (Auto) 2.0 [place] # (Auto) 0.5 Eos # (Auto) 0.3 Baso # (Auto) 0.0 Differential Comment Retic Count 1.9 H PT INR APTT D-Dimer, Quantitative Sodium 143 Potassium 4.0 Chloride 106 Carbon Dioxide 23 Anion Gap 18 BUN 14 Creatinine 0.8 Est GFR ( Amer) > 60 Est GFR (Non-Af Amer) > 60 Random Glucose 82 Calcium 8.5 L Iron TIBC % Saturation Transferrin Ferritin 5.1 Total Bilirubin 0.4 AST 11 L D ALT 11 Alkaline Phosphatase 63 Troponin I < 0.0120 NT-Pro-B Natriuret Pep 307 Total Protein 6.5 Albumin 3.4 L Globulin 3.1 Albumin/Globulin Ratio 1.1 Vitamin B12 Folate Beta HCG, Quant < 2.39 03/02/18 03/02/18 03/02/18 07:34 07:34 07:34 WBC RBC Hgb Hct MCV MCH MCHC RDW Plt Count MPV Neut % (Auto) Lymph % (Auto) [place] % (Auto) Eos % (Auto) Baso % (Auto) Neut # (Auto) Lymph # (Auto) [place] # (Auto) Eos # (Auto) Baso # (Auto) Differential Comment Retic Count PT INR APTT D-Dimer, Quantitative Sodium Potassium Chloride Carbon Dioxide Anion Gap BUN Creatinine Est GFR ( Amer) Est GFR (Non-Af Amer) Random Glucose Calcium Iron 11 L TIBC 356 % Saturation 3 L Transferrin 263.91 Ferritin Total Bilirubin AST ALT Alkaline Phosphatase Troponin I NT-Pro-B Natriuret Pep Total Protein Albumin Globulin Albumin/Globulin Ratio Vitamin B12 259 Folate 9.0 Beta HCG, Quant
--- NOTE | 2018-03-02 17:48 | CARD ---
APPROVED REPORT Date of service: 03/02/2018 EXAM: Two-dimensional and M-mode echocardiogram with Doppler and color Doppler. Other Information Quality : GoodRhythm : INDICATION Pulmonary Embolism Chest Pain 2D DIMENSIONS IVSd0.9 (0.7-1.1cm)LVDd4.0 (3.9-5.9cm) PWd1.0 (0.7-1.1cm)LA [id number] (18-58mL) LVDs2.5 (2.5-4.0cm)FS (%) 38.4 % LVEF (%)69.3 (>50%)LVEF (Gregory's)63.61 % M-Mode DIMENSIONS Left Atrium (MM)4.05 (2.5-4.0cm)IVSd0.71 (0.7-1.1cm) Aortic Root2.99 (2.2-3.7cm)LVDd4.56 (4.0-5.6cm) Aortic Cusp Exc.1.97 (1.5-2.0cm)PWd0.80 (0.7-1.1cm) FS (%) 36 %LVDs2.92 (2.0-3.8cm) LVEF (%)66 (>50%) Mitral Valve MV E Vkofcmae88.2cm/sMV A Sghaullr83.8cm/sE/A ratio0.9 TDI Lateral E' Peak V10.22cm/sMedial E' Peak V7.84cm/sE/Lateral E'8.2 E/Medial E'10.7 Tricuspid Valve TR Peak Fafyqrpp540xa/sTR Peak Gr.28dbLkSOMJ61rhRr LEFT VENTRICLE The left ventricle is normal size. There is normal left ventricular wall thickness. The left ventricular function is normal. The left ventricular ejection fraction is within the normal range. There is normal LV segmental wall motion. RIGHT VENTRICLE The right ventricle is normal size. There is normal right ventricular wall thickness. The right ventricular systolic function is normal. ATRIA The left atrium is borderline dilated. The right atrium size is normal. AORTIC VALVE The aortic valve is normal in structure. No aortic regurgitation is present. There is no aortic valvular stenosis. MITRAL VALVE The mitral valve is moderately thickened. There is no mitral valve stenosis. There is no mitral valve regurgitation noted. TRICUSPID VALVE The tricuspid valve is normal in structure. There is no tricuspid valve regurgitation noted. PULMONIC VALVE The pulmonary valve is normal in structure. There is no pulmonic valvular regurgitation. GREAT VESSELS The aortic root is normal in size. The IVC is normal in size and collapses >50% with inspiration. PERICARDIAL EFFUSION There is no pericardial effusion. <Conclusion> The left ventricle is normal size. There is normal left ventricular wall thickness. The left ventricular function is normal. The left ventricular ejection fraction is within the normal range. There is normal LV segmental wall motion. The right ventricle is normal size. The right ventricular systolic function is normal.
--- NOTE | 2018-03-02 18:35 | CARD ---
APPROVED REPORT Date of service: 03/01/2018 EKG Measurement Heart [id number] <Conclusion> Normal sinus rhythm Normal ECG
--- NOTE | 2018-03-02 20:31 | CP.PCM.CON ---
History of Present Illness - History of Present Illness History of Present Illness: 47 year old female with no past medical history on OCP's admitted with PE and iron deficiency anemia. The patient reports to heavyperiods for which she was prescribed oral contraceptives. She notes to progressive shortness of breath which prompted her to come to the ER. In the ER, she was found to have PE. She is currently on anticoagulation and reports to feeling better. She denies immobility or trauma to her extremities. Past medical history: Menorrhagia, iron deficiency anemia Past surgical history: Denies Family history: Denies hematologic and oncologic problems Social history: Denies tobacco, alcohol, and illicit drug use. Allergies: NKA Review of systems: All remaining review of systems including HEENT, cardiovascular, respiratory, gastrointestinal, genitourinary, musculoskeletal, dermatologic, neurologic, and psychiatric are negative unless mentioned in the HPI. Past Patient History - Tetanus Immunizations Tetanus Immunization: Unknown - Past Social History Smoking Status: Never Smoked - CARDIAC Hx Hypertension: Yes (on meds, but can't remember name) - MUSCULOSKELETAL/RHEUMATOLOGICAL Hx Falls: No - GENITOURINARY/GYNECOLOGICAL Other/Comment: ectopic - PSYCHIATRIC Hx Substance Use: No - SURGICAL HISTORY Hx Surgeries: Yes Other/Comment: ectopic - ANESTHESIA Hx Anesthesia: Yes Hx Anesthesia Reactions: No Meds Home Medications: Home Medication List Medication Instructions Recorded Confirmed Type Apixaban [Eliquis] 5 mg PO ASDIR #1 tab.ds.pk 03/03/18 Rx Ferrous Sulfate [Feosol] 325 mg PO DAILY #30 tab 03/03/18 Rx Lisinopril [Zestril] 5 mg PO DAILY #30 tab 03/03/18 Rx Allergies/Adverse Reactions: Allergies Allergy/AdvReac Type Severity Reaction Status Date / Time No Known Allergies Allergy Verified 03/01/18 20:33 - Medications Medications: Current Medications Enoxaparin Sodium (Lovenox) 70 mg SC Q12 [facility] Ferrous Sulfate (Feosol) 325 mg PO DAILY [facility] Last Admin: 03/02/18 11:38 Dose: 325 mg Lisinopril (Zestril) 5 mg PO DAILY [facility] Last Admin: 03/02/18 11:39 Dose: 5 mg Physical Exam - Head Exam Head Exam: ATRAUMATIC - Eye Exam Eye Exam: Normal appearance - ENT Exam ENT Exam: Mucous Membranes Dry - Respiratory Exam Respiratory Exam: NORMAL BREATHING PATTERN - Cardiovascular Exam Cardiovascular Exam: +S1, +S2 - GI/Abdominal Exam GI & Abdominal Exam: Normal Bowel Sounds - Extremities Exam Extremities exam: Positive for: normal inspection - Neurological Exam Neurological exam: Oriented x3 - Psychiatric Exam Psychiatric exam: Normal Affect, Normal Mood - Skin Skin Exam: Warm Results - Vital Signs Recent Vital Signs: Last Vital Signs Temp 98.1 F 03/02/18 15:00 Pulse 69 03/02/18 15:00 Resp 20 03/02/18 15:00 BP 136/95 H 03/02/18 15:00 Pulse Ox 99 03/02/18 15:00 - Labs Result Diagrams: 03/03/18 06:08 03/03/18 06:08 Labs: Laboratory Results - last 24 hr 03/01/18 03/01/18 03/01/18 21:09 21:09 21:09 WBC 6.8 D RBC 4.49 Hgb 8.8 L D Hct 28.1 L MCV 62.5 L D MCH 19.6 L MCHC 31.3 L RDW 20.2 H Plt Count 508 H D MPV 7.5 Neut % (Auto) 63.6 Lymph % (Auto) 27.0 [place] % (Auto) 7.0 Eos % (Auto) 1.9 Baso % (Auto) 0.5 Neut # (Auto) 4.3 Lymph # (Auto) 1.8 [place] # (Auto) 0.5 Eos # (Auto) 0.1 Baso # (Auto) 0.0 Differential Comment Retic Count PT 11.6 INR 1.1 APTT 26 D-Dimer, Quantitative 781 H Sodium 139 Potassium 3.8 Chloride 104 Carbon Dioxide 23 Anion Gap 15 BUN 17 Creatinine 0.9 Est GFR ( Amer) > 60 Est GFR (Non-Af Amer) > 60 Random Glucose 132 H Calcium 8.9 Iron TIBC % Saturation Transferrin Ferritin Total Bilirubin 0.5 AST 20 ALT 13 Alkaline Phosphatase 68 Troponin I < 0.0120 NT-Pro-B Natriuret Pep Total Protein 7.4 Albumin 3.9 Globulin 3.6 Albumin/Globulin Ratio 1.1 Vitamin B12 Folate Beta HCG, Quant 03/02/18 03/02/18 03/02/18 00:11 07:34 07:34 WBC 5.9 RBC 4.34 Hgb 8.5 L Hct 27.1 L MCV 62.5 L MCH 19.6 L MCHC 31.4 L RDW 20.3 H Plt Count 491 H MPV 7.5 Neut % (Auto) 53.8 Lymph % (Auto) 33.4 [place] % (Auto) 7.8 Eos % (Auto) 4.4 H Baso % (Auto) 0.6 Neut # (Auto) 3.2 Lymph # (Auto) 2.0 [place] # (Auto) 0.5 Eos # (Auto) 0.3 Baso # (Auto) 0.0 Differential Comment Retic Count 1.9 H PT INR APTT D-Dimer, Quantitative Sodium 143 Potassium 4.0 Chloride 106 Carbon Dioxide 23 Anion Gap 18 BUN 14 Creatinine 0.8 Est GFR ( Amer) > 60 Est GFR (Non-Af Amer) > 60 Random Glucose 82 Calcium 8.5 L Iron TIBC % Saturation Transferrin Ferritin 5.1 Total Bilirubin 0.4 AST 11 L D ALT 11 Alkaline Phosphatase 63 Troponin I < 0.0120 NT-Pro-B Natriuret Pep 307 Total Protein 6.5 Albumin 3.4 L Globulin 3.1 Albumin/Globulin Ratio 1.1 Vitamin B12 Folate Beta HCG, Quant < 2.39 03/02/18 03/02/18 03/02/18 07:34 07:34 07:34 WBC RBC Hgb Hct MCV MCH MCHC RDW Plt Count MPV Neut % (Auto) Lymph % (Auto) [place] % (Auto) Eos % (Auto) Baso % (Auto) Neut # (Auto) Lymph # (Auto) [place] # (Auto) Eos # (Auto) Baso # (Auto) Differential Comment Retic Count PT INR APTT D-Dimer, Quantitative Sodium Potassium Chloride Carbon Dioxide Anion Gap BUN Creatinine Est GFR ( Amer) Est GFR (Non-Af Amer) Random Glucose Calcium Iron 11 L TIBC 356 % Saturation 3 L Transferrin 263.91 Ferritin Total Bilirubin AST ALT Alkaline Phosphatase Troponin I NT-Pro-B Natriuret Pep Total Protein Albumin Globulin Albumin/Globulin Ratio Vitamin B12 259 Folate 9.0 Beta HCG, Quant Assessment & Plan (1) Bilateral pulmonary embolism Assessment and Plan: likely provoked from OCP's; pt to discontinue on therapeutic 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 Status: Acute
[2018-03-02] MEDS: Enoxaparin 80 mg Syringe SC SCH (21:12)
[2018-03-03 04:30] VITALS: O2SAT 97
[2018-03-03 06:22] LABS: BASO % 0.6 % (0.0-2.0); EOS # 0.3 K/uL (0.0-0.7); EOS % 5.3 % (0.0-4.0); HEMOGLOBIN 8.8 g/dL (11.0-16.0); LYMPH # 2.1 K/uL (1.0-4.3); LYMPH % 34.7 % (20.0-40.0); MEAN CELL VOLUME 63.2 fL (81.0-99.0); MEAN CORPUSCULAR HEMOGLOBIN 19.5 pg (27.0-31.0); MEAN CORPUSCULAR HGB CONC 30.9 g/dL (33.0-37.0); MEAN PLATELET VOLUME 7.4 fL (7.2-11.7); MONO # 0.5 K/uL (0.0-0.8); MONO % 8.4 % (0.0-10.0); NEUT # 3.1 K/uL (1.8-7.0); NRBC % 0.1 % (0.0-2.0); RBC 4.51 Mil/uL (3.80-5.20); RED CELL DISTRIBUTION WIDTH 20.1 % (11.5-14.5); WHITE BLOOD COUNT 6.1 K/uL (4.8-10.8)
[2018-03-03 06:46] LABS: ALB/GLOB RATIO 1.2 (1.0-2.1); ALBUMIN 3.4 g/dL (3.5-5.0); ALT/SGPT 17 U/L (9-52); AST/SGOT 15 U/L (14-36); BLOOD UREA NITROGEN 13 mg/dL (7-17); CALCIUM 8.2 mg/dl (8.6-10.4); GFR NON-AFRICAN AMERICAN > 60
--- NOTE | 2018-03-03 08:12 | CP.PCM.PN ---
Subjective - Date & Time of Evaluation Date of Evaluation: 03/03/18 Time of Evaluation: 07:50 - Subjective Subjective: Pt examined at bedside. No acute events overnight. When asked why pt refused pelvic exam by residency program coordinator yesterday pt reported she felt uncomfortable w/ the males in the room. I advised her that she could ask them to wait outside if she prefe rred. Pt reports minimal menstrual bleeding that began yesterday, just drops. Pt denies pelvic pain. Pt reports she had a headache again overnight which resolved w/ Tylenol; pt reports frequent headaches during menstruation relieved by Tylenol at home. Pt reports improvement in right sided chest/flank/back pain w/ deep inspiration. Denies SOB, cough, palpitations, abd pain, nausea. Objective - Vital Signs/Intake and Output Vital Signs (last 24 hours): Temp Pulse Resp BP Pulse Ox 98.3 F 65 18 121/86 97 03/03/18 07:00 03/03/18 07:00 03/03/18 07:00 03/03/18 07:00 03/03/18 07:00 - Medications Medications: Current Medications Acetaminophen (Tylenol 325mg Tab) 650 mg PO Q6 PRN PRN Reason: Headache Last Admin: 03/02/18 22:04 Dose: 650 mg Enoxaparin Sodium (Lovenox) 70 mg SC Q12 [facility] Last Admin: 03/02/18 21:12 Dose: 70 mg Ferrous Sulfate (Feosol) 325 mg PO DAILY [facility] Last Admin: 03/02/18 11:38 Dose: 325 mg Ferric Sodium Gluconate Complex 125 mg/ Sodium Chloride 110 mls @ 105 mls/hr IVPB DAILY [facility] Stop: 03/11/18 10:01 Lisinopril (Zestril) 5 mg PO DAILY [facility] Last Admin: 03/02/18 11:39 Dose: 5 mg - Labs Labs: 03/03/18 06:08 03/03/18 06:08 PT 11.6 SECONDS (9.7-12.2) 03/01/18 21:09 INR 1.1 03/01/18 21:09 APTT 26 SECONDS (21-34) 03/01/18 21:09 - Constitutional Appears: No Acute Distress - Head Exam Head Exam: ATRAUMATIC, NORMAL INSPECTION, NORMOCEPHALIC - Eye Exam Eye Exam: EOMI, Normal appearance - ENT Exam ENT Exam: Mucous Membranes Moist, Normal Exam - Neck Exam Neck Exam: Full ROM, Normal Inspection - Respiratory Exam Respiratory Exam: Decreased Breath Sounds (shallow breaths 2/2 pain), Clear to Ausculation Bilateral, NORMAL BREATHING PATTERN. absent: Rhonchi, Wheezes, Respiratory Distress - Cardiovascular Exam Cardiovascular Exam: REGULAR RHYTHM, +S1, +S2. absent: Tachycardia, Murmur - GI/Abdominal Exam GI & Abdominal Exam: Soft, Normal Bowel Sounds. absent: Distended, Tenderness - Extremities Exam Extremities Exam: Normal Inspection. absent: Calf Tenderness, Pedal Edema - Neurological Exam Neurological Exam: Alert, Awake, Oriented x3 - Psychiatric Exam Psychiatric exam: Normal Affect, Normal Mood - Skin Skin Exam: Dry, Intact, Normal Color, Warm Assessment and Plan - Assessment and Plan (Free Text) Assessment: 47 yo F w/ PMHx of HTN and fibroids admitted w/ extensive B/L PEs PE -CT read: extensive B/L PE, small right pleural effusion -f/u LE dopplers -hormones for menorrhagia 2/2 fibroids stopped -Lovenox 70mg q12 -f/u hypercoaguable labs -echo(03/02) shows no abnormalities -Heme consult Dr. Rangel Fibroids -CT abd/pelvis shows questionable small uterine fibroid and small amount of free fluid in the cul de sac. Incidental 4.5x4.5cm exophytic left renal cyst. -pt refused pelic exam w/ residency program coordinator due to males in room -Automatic Spooler Operator consult Dr. Walker Anemia(iron deficiency) -hgb 8.8 -ferrlecit 125mg qd -feosol 325mg qd -pt reports minimal menstrual blood loss -continue to monitor HTN -lisinopril 5mg po qd
[2018-03-03] MEDS ORDERED: Ferric Sodium Gluconat Complex 125 MG in Sodium Chloride 0.9% 100 ML IVPB SCH (10:00)
[2018-03-03] MEDS ORDERED: Ferric Sodium Gluconat Complex 62.5 mg/5 ml Vial IVPB SCH (10:00)
[2018-03-03] MEDS: Enoxaparin 80 mg Syringe SC SCH (10:18)
--- NOTE | 2018-03-03 14:08 | CP.PCM.DIS ---
<Yvette Arreguin - Last Filed: 03/03/18 17:03> Provider - Provider Date of Admission: 03/02/18 00:16 Attending physician: Chung Ross MD Time Spent in preparation of Discharge (in minutes): 29 Diagnosis - Discharge Diagnosis (1) Bilateral pulmonary embolism Status: Acute Comment: Extensive bilateral PE found on chest CT. Pt treated with anticoagulation in hospital and sent home to continue on anticoagulation. Hospital Course - Lab Results Lab Results: Most Recent Lab Values WBC 6.1 K/uL (4.8-10.8) 03/03/18 06:08 RBC 4.51 Mil/uL (3.80-5.20) 03/03/18 06:08 Hgb 8.8 g/dL (11.0-16.0) L 03/03/18 06:08 Hct 28.5 % (34.0-47.0) L 03/03/18 06:08 MCV 63.2 fL (81.0-99.0) L 03/03/18 06:08 MCH 19.5 pg (27.0-31.0) L 03/03/18 06:08 MCHC 30.9 g/dL (33.0-37.0) L 03/03/18 06:08 RDW 20.1 % (11.5-14.5) H 03/03/18 06:08 Plt Count 514 K/uL (130-400) H 03/03/18 06:08 MPV 7.4 fL (7.2-11.7) 03/03/18 06:08 Neut % (Auto) 51.0 % (50.0-75.0) 03/03/18 06:08 Lymph % (Auto) 34.7 % (20.0-40.0) 03/03/18 06:08 [place] % (Auto) 8.4 % (0.0-10.0) 03/03/18 06:08 Eos % (Auto) 5.3 % (0.0-4.0) H 03/03/18 06:08 Baso % (Auto) 0.6 % (0.0-2.0) 03/03/18 06:08 Neut # (Auto) 3.1 K/uL (1.8-7.0) 03/03/18 06:08 Lymph # (Auto) 2.1 K/uL (1.0-4.3) 03/03/18 06:08 [place] # (Auto) 0.5 K/uL (0.0-0.8) 03/03/18 06:08 Eos # (Auto) 0.3 K/uL (0.0-0.7) 03/03/18 06:08 Baso # (Auto) 0.0 K/uL (0.0-0.2) 03/03/18 06:08 Differential Comment 03/01/18 21:09 Retic Count 1.9 % (0.5-1.5) H 03/02/18 07:34 PT 11.6 SECONDS (9.7-12.2) 03/01/18 21:09 INR 1.1 03/01/18 21:09 APTT 26 SECONDS (21-34) 03/01/18 21:09 D-Dimer, Quantitative 781 ng/mlDDU (0-243) H 03/01/18 21:09 Sodium 138 mmol/L (132-148) 03/03/18 06:08 Potassium 4.0 mmol/L (3.6-5.2) 03/03/18 06:08 Chloride 105 mmol/L (98-107) 03/03/18 06:08 Carbon Dioxide 23 mmol/L (22-30) 03/03/18 06:08 Anion Gap 15 (10-20) 03/03/18 06:08 BUN 13 mg/dL (7-17) 03/03/18 06:08 Creatinine 0.7 mg/dL (0.7-1.2) 03/03/18 06:08 Est GFR ( Amer) > 60 03/03/18 06:08 Est GFR (Non-Af Amer) > 60 03/03/18 06:08 Random Glucose 77 mg/dL (65-105) 03/03/18 06:08 Calcium 8.2 mg/dl (8.6-10.4) L 03/03/18 06:08 Iron 11 ug/dL (37-170) L 03/02/18 07:34 TIBC 356 ug/dL (250-450) 03/02/18 07:34 % Saturation 3 (20-55) L 03/02/18 07:34 Transferrin 263.91 mg/dL (206-381) 03/02/18 07:34 Ferritin 5.1 ng/mL 03/02/18 07:34 Total Bilirubin 0.3 mg/dL (0.2-1.3) 03/03/18 06:08 AST 15 U/L (14-36) 03/03/18 06:08 ALT 17 U/L (9-52) 03/03/18 06:08 Alkaline Phosphatase 67 U/L (38-126) 03/03/18 06:08 Troponin I < 0.0120 ng/mL (0.00-0.120) 03/02/18 00:11 NT-Pro-B Natriuret Pep 307 pg/mL (0-450) 03/02/18 00:11 Total Protein 6.3 g/dL (6.3-8.3) 03/03/18 06:08 Albumin 3.4 g/dL (3.5-5.0) L 03/03/18 06:08 Globulin 2.9 gm/dL (2.2-3.9) 03/03/18 06:08 Albumin/Globulin Ratio 1.2 (1.0-2.1) 03/03/18 06:08 Vitamin B12 259 pg/mL (239-931) 03/02/18 07:34 Folate 9.0 ng/mL 03/02/18 07:34 Beta HCG, Quant < 2.39 mIU/ML 03/02/18 07:34 - Hospital Course Hospital Course: Pt evaluated and treated at [facility] from 03/01/18 to 03/03/18. In the ED pt received chest x-ray, EKG, Blood work including: CBC, Coags, CMP, and cardiac enzymes, all within normal limits. D-Dimer done in the ED was elevated promoing a Ct angio of the chest, showing extensive bilateral pulmonary emboli. Hematology Dr. Rangel was consulted and ordered hypercoaguable workup. Robotic Maintenance Technician was consulted to evaluate menorrhagia 2/2 history of uterine fibroids. Hormones to control menorrhagia were discontinued. Pt was anticoagulated with Lovenox 70 mg BID with moderate relief of symptoms. Pt currently stable for discharge. Anticoagulation transitioned to eliquis, pt will continue treatment outpatient and follow up in clinic. HPI on admission Pt is a 47yo F with PMH of HTN, fibroids who presents to the ED with shortness of breath for 3 days. She feels it at rest mostly, but claims it was provoked yesterday with housework. She reports that she feels it on the R side than left. She denies a previous history of this. She claims to have recently started OCPs for heavy vaginal bleeding which she attributes to fibroids. She reports associated dizziness, but denies any chest pain, palpitations, sweating, nausea, vomiting, diarrhea. Discharge Exam - Head Exam Head Exam: ATRAUMATIC, NORMAL INSPECTION, NORMOCEPHALIC - Eye Exam Eye Exam: EOMI, Normal appearance - ENT Exam ENT Exam: Mucous Membranes Moist, Normal Exam - Neck Exam Neck exam: Normal Inspection - Respiratory Exam Respiratory Exam: Decreased Breath Sounds, NORMAL BREATHING PATTERN, UNREMARKABLE - Cardiovascular Exam Cardiovascular Exam: REGULAR RHYTHM, +S1, +S2. absent: Tachycardia - GI/Abdominal Exam GI & Abdominal Exam: Normal Bowel Sounds, Soft, Unremarkable. absent: Tenderness - Extremities Exam Extremities exam: normal inspection - Neurological Exam Neurological exam: Alert, Normal Gait, Oriented x3 - Psychiatric Exam Psychiatric exam: Normal Affect, Normal Mood - Skin Skin Exam: Dry, Intact, Normal Color, Warm Discharge Plan - Discharge Medications Prescriptions: Apixaban [Eliquis] 5 mg PO ASDIR #1 tab.ds.pk RX: Ferrous Sulfate [Feosol] 325 mg PO DAILY #30 tab RX: Lisinopril [Zestril] 5 mg PO DAILY #30 tab - Follow Up Plan Condition: STABLE Disposition: HOME/ ROUTINE Instructions: Heart Healthy Diet, Pulmonary Embolism (Blood Clot in the Lungs) (DC), Chest Pain (DC), Apixaban, Ferrous Sulfate, Lisinopril Additional Instructions: Pt is being discharged home in stable condition. Pt is being given prescriptions to be filled and taken as directed. Pt is to take lisinopril 5mg daily. Pt is to take ferrous sulfate 325mg daily. Pt is to take Eliquis as instructed. For 7 days pt is to take 2 pills in the morning and 2 in the evening. Then after 7 days patient is to take 1 pill in the morning and 1 in the evening. Patient is to follow up in the clinic within 1 week of discharge. The clinic will continue Eliquis management as this must be continued for several months. Pt is instructed to follow up with Dr. Arellano, Dr. Rangel outpatient. Pt is instructed to take caution not to injure herself as blood t hinners can cause prolonged and excessive bleeding. Return to ED ith any worsening of symptoms. Pt se est descargando a casa en condicin estable. A Pt se le estn dando recetas para que las llene y las tome segn las indicaciones. Pt es josé miguel lisinopril 5mg diariamente. Pt es josé miguel 325 mg de sulfato ferroso diariamente. Pt es josé miguel Eliquis segn las instrucciones. Por 7 chamorro es josé miguel 2 pastillas por la maana y 2 por la tarde. Luego, despus de 7 chamorro, el paciente debe josé miguel 1 pldora por la maana y 1 por la noche. El paciente debe realizar un seguimiento en la clnica dentro de rosa semana despus del eloise. La clnica continuar con el manejo de Eliquis ya que esto debe continuar cosmo varios meses. Pt recibe instrucciones para hacer un seguimiento con el Dr. Palomares, el Dr. Rangel, paciente ambulatorio. Se le indica a Pt que tenga cuidado de no lastimarse, ya que los anticoagulantes pueden causar un sangrado prolongado y excesivo. Volver a la disfuncin erctil con cualquier empeoramiento de los sntomas. Referrals: Nidhi Lew MD [Staff Provider] - Shantal Arellano DO [Staff Provider] - Dhiraj Rangel MD [Staff Provider] - <Stephanie Thomas - Last Filed: 03/18/18 14:04> Provider - Provider Date of Admission: 03/02/18 00:16 Attending physician: Chung Ross MD Hospital Course - Lab Results Lab Results: Most Recent Lab Values WBC 6.1 K/uL (4.8-10.8) 03/03/18 06:08 RBC 4.51 Mil/uL (3.80-5.20) 03/03/18 06:08 Hgb 8.8 g/dL (11.0-16.0) L 03/03/18 06:08 Hct 28.5 % (34.0-47.0) L 03/03/18 06:08 MCV 63.2 fL (81.0-99.0) L 03/03/18 06:08 MCH 19.5 pg (27.0-31.0) L 03/03/18 06:08 MCHC 30.9 g/dL (33.0-37.0) L 03/03/18 06:08 RDW 20.1 % (11.5-14.5) H 03/03/18 06:08 Plt Count 514 K/uL (130-400) H 03/03/18 06:08 MPV 7.4 fL (7.2-11.7) 03/03/18 06:08 Neut % (Auto) 51.0 % (50.0-75.0) 03/03/18 06:08 Lymph % (Auto) 34.7 % (20.0-40.0) 03/03/18 06:08 [place] % (Auto) 8.4 % (0.0-10.0) 03/03/18 06:08 Eos % (Auto) 5.3 % (0.0-4.0) H 03/03/18 06:08 Baso % (Auto) 0.6 % (0.0-2.0) 03/03/18 06:08 Neut # (Auto) 3.1 K/uL (1.8-7.0) 03/03/18 06:08 Lymph # (Auto) 2.1 K/uL (1.0-4.3) 03/03/18 06:08 [place] # (Auto) 0.5 K/uL (0.0-0.8) 03/03/18 06:08 Eos # (Auto) 0.3 K/uL (0.0-0.7) 03/03/18 06:08 Baso # (Auto) 0.0 K/uL (0.0-0.2) 03/03/18 06:08 Differential Comment 03/01/18 21:09 Retic Count 1.9 % (0.5-1.5) H 03/02/18 07:34 PT 11.6 SECONDS (9.7-12.2) 03/01/18 21:09 INR 1.1 03/01/18 21:09 APTT 26 SECONDS (21-34) 03/01/18 21:09 D-Dimer, Quantitative 781 ng/mlDDU (0-243) H 03/01/18 21:09 Factor V see note 03/02/18 13:42 Sodium 138 mmol/L (132-148) 03/03/18 06:08 Potassium 4.0 mmol/L (3.6-5.2) 03/03/18 06:08 Chloride 105 mmol/L (98-107) 03/03/18 06:08 Carbon Dioxide 23 mmol/L (22-30) 03/03/18 06:08 Anion Gap 15 (10-20) 03/03/18 06:08 BUN 13 mg/dL (7-17) 03/03/18 06:08 Creatinine 0.7 mg/dL (0.7-1.2) 03/03/18 06:08 Est GFR ( Amer) > 60 03/03/18 06:08 Est GFR (Non-Af Amer) > 60 03/03/18 06:08 Random Glucose 77 mg/dL (65-105) 03/03/18 06:08 Calcium 8.2 mg/dl (8.6-10.4) L 03/03/18 06:08 Iron 11 ug/dL (37-170) L 03/02/18 07:34 TIBC 356 ug/dL (250-450) 03/02/18 07:34 % Saturation 3 (20-55) L 03/02/18 07:34 Transferrin 263.91 mg/dL (206-381) 03/02/18 07:34 Ferritin 5.1 ng/mL 03/02/18 07:34 Total Bilirubin 0.3 mg/dL (0.2-1.3) 03/03/18 06:08 AST 15 U/L (14-36) 03/03/18 06:08 ALT 17 U/L (9-52) 03/03/18 06:08 Alkaline Phosphatase 67 U/L (38-126) 03/03/18 06:08 Troponin I < 0.0120 ng/mL (0.00-0.120) 03/02/18 00:11 NT-Pro-B Natriuret Pep 307 pg/mL (0-450) 03/02/18 00:11 Total Protein 6.3 g/dL (6.3-8.3) 03/03/18 06:08 Albumin 3.4 g/dL (3.5-5.0) L 03/03/18 06:08 Globulin 2.9 gm/dL (2.2-3.9) 03/03/18 06:08 Albumin/Globulin Ratio 1.2 (1.0-2.1) 03/03/18 06:08 Vitamin B12 259 pg/mL (239-931) 03/02/18 07:34 Folate 9.0 ng/mL 03/02/18 07:34 Beta HCG, Quant < 2.39 mIU/ML 03/02/18 07:34 [id number] Ab 10 CARMENZA (<=20) 03/02/18 13:42 Beta-2 GPI IgG Ab 11 SGU (<=20) 03/02/18 13:42 Beta-2 GPI IgM Ab <9 SMU (<=20) 03/02/18 13:42 Phosphatidylserine IgG <10 U/mL (<10) 03/02/18 13:42 Phosphatidylserine IgA <20 U/mL (<20) 03/02/18 13:42 Phosphatidylserine IgM <25 U/mL (<25) 03/02/18 13:42 Anti-Phospholipid Intrp see note 03/02/18 13:42 Anti-Cardiolipin IgG Ab <14 GPL (<=14) 03/02/18 13:42 Anti-Cardiolipin IgA Ab <11 APL (<=11) 03/02/18 13:42 Anti-Cardiolipin IgM Ab <12 MPL (<=12) 03/02/18 13:42 Prothrombin Mut Interp see note 03/02/18 13:42 Prothrombin Gene Mutate see note 03/02/18 13:42 Prothromb Gene Review see note 03/02/18 13:42 Attending/Attestation - Attestation I have personally seen and examined this patient.: Yes I have fully participated in the care of the patient.: Yes I have reviewed all pertinent clinical information, including history, physical exam and plan: Yes
[2018-03-03 16:06] VITALS: BP 135/82; RESP 20; TEMP 97.5
[2018-03-03 16:47] VITALS: PULSE 84
--- NOTE | 2018-03-03 20:15 | CP.PCM.PN ---
Subjective - Date & Time of Evaluation Date of Evaluation: 03/03/18 Time of Evaluation: 12:00 - Subjective Subjective: Feeling better Objective - Vital Signs/Intake and Output Vital Signs (last 24 hours): Temp Pulse Resp BP Pulse Ox 97.5 F L 84 20 135/82 97 03/03/18 16:00 03/03/18 16:15 03/03/18 16:00 03/03/18 16:00 03/03/18 16:00 Intake and Output: 03/03/18 03/04/18 18:59 06:59 Intake Total 650 Balance 650 - Labs Labs: 03/03/18 06:08 03/03/18 06:08 PT 11.6 SECONDS (9.7-12.2) 03/01/18 21:09 INR 1.1 03/01/18 21:09 APTT 26 SECONDS (21-34) 03/01/18 21:09 - Head Exam Head Exam: ATRAUMATIC - Eye Exam Eye Exam: Normal appearance - ENT Exam ENT Exam: Mucous Membranes Dry - Respiratory Exam Respiratory Exam: NORMAL BREATHING PATTERN - Cardiovascular Exam Cardiovascular Exam: +S1, +S2 - GI/Abdominal Exam GI & Abdominal Exam: Normal Bowel Sounds Assessment and Plan (1) Bilateral pulmonary embolism Assessment & Plan: provoked from OCP's; pt discontinued therapeutic anticoagulation for 3-6 months f/u inherited thrombophilia w/u Status: Acute (2) Iron deficiency anemia Assessment & Plan: s/p IV iron CLINICAL PROJECT ASSISTANT evaluation PO iron Status: Acute
[2018-03-04] MEDS ORDERED: Pneumococcal 23-Valent Vaccine IM ONE (10:00)
--- NOTE | 2018-03-04 11:36 | VASCLAB ---
Date of service: 03/02/2018 PROCEDURE: Lower Extremity Venous Duplex Exam. HISTORY: Pulmonary embolism. PRIORS: None. TECHNIQUE: Bilateral common femoral, femoral, popliteal and posterior tibial, peroneal and great saphenous veins were evaluated. Flow was assessed with color Doppler, compressibility, assessment of phasic flow and augmentation response. Report prepared by OMAR Selby FINDINGS: RIGHT: 1. Common Femoral Vein: 1.1. Compressibility - Fully compressible: Thrombus - None : Flow - Phasic: Augmentation -Normal: Reflux - None. 2. Femoral Vein: 2.1. Compressibility - Fully compressible: Thrombus - None : Flow - Phasic: Augmentation -Normal: Reflux - None. 3. Popliteal Vein: 3.1. Compressibility - Fully compressible: Thrombus - None : Flow - Phasic: Augmentation -Normal: Reflux - None. 4. Posterior Tibial Vein: 4.1. Compressibility - Fully compressible: Thrombus - None: Flow - Phasic: Augmentation -Normal: Reflux - None. 5. Peroneal Vein: 5.1. Compressibility - Fully compressible: Thrombus - None: Flow - Phasic: Augmentation -Normal: Reflux - None. 6. Great Saphenous Vein: 6.1. Compressibility - Fully compressible: Thrombus - None: Flow - Phasic: Augmentation - Normal: Reflux - None. LEFT: 1. Common Femoral Vein: 1.1. Compressibility - Fully compressible: Thrombus - None: Flow - Phasic: Augmentation -Normal: Reflux - None. 2. Femoral Vein: 2.1. Compressibility - Fully compressible: Thrombus - None: Flow - Phasic: Augmentation -Normal: Reflux - None. 3. Popliteal Vein: 3.1. Compressibility - Fully compressible: Thrombus - None : Flow - Phasic: Augmentation -Normal: Reflux - None. 4. Posterior Tibial Vein: 4.1. Compressibility - Fully compressible: Thrombus - None: Flow - Phasic: Augmentation -Normal: Reflux - None. 5. Peroneal Vein: 5.1. Compressibility - Fully compressible: Thrombus - None: Flow - Phasic: Augmentation -Normal: Reflux - None. 6. Great Saphenous Vein: 6.1. Compressibility - Fully compressible: Thrombus - None: Flow - Phasic: Augmentation - Normal: Reflux - None. OTHER FINDINGS: Right: None significant. Left: None significant. IMPRESSION: Right: No evidence of deep or superficial vein thrombosis of the right lower extremity. Normal valve function noted of the right side. Left: No evidence of deep or superficial vein thrombosis of the left lower extremity. Normal valve function noted of the left side.
[2018-03-04 22:56] LABS: CARDIOLIPIN AB (IGA) <11 APL (<=11); CARDIOLIPIN AB (IGG) <14 GPL (<=14)
[2018-03-05 00:01] LABS: B2 GLYCOPROTEIN I AB(IGA) 10 SAU (<=20); B2 GLYCOPROTEIN I AB(IGG) 11 SGU (<=20); B2 GLYCOPROTEIN I AB(IGM) <9 SMU (<=20)
[2018-03-05] MEDS ORDERED: Influenza Vaccine 60 MCG/0.5 ML SYR (3 yr & up) IM ONE (10:00)
[2018-03-05 20:56] LABS: CARDIOLIPIN AB (IGM) <12 MPL (<=12); PHOSPHATIDYLSERINE AB IGA <20 U/mL (<20); PHOSPHATIDYLSERINE AB IGG <10 U/mL (<10); PHOSPHATIDYLSERINE AB IGM <25 U/mL (<25)
== END 2018-03-03 18:19 | disposition home or self-care (01) | DRG 134 ==
LOC: C.ER 20:13 → C.6T 03-02 00:16
PROVIDERS: ADMIT Internal Medicine; ATTEND Internal Medicine
DX: I26.99 Other pulmonary embolism without acute cor pulmonale (principal); I10 Essential (primary) hypertension; D50.0 Iron deficiency anemia secondary to blood loss (chronic); N92.0 Excessive and frequent menstruation with regular cycle; D25.1 Intramural leiomyoma of uterus; D25.2 Subserosal leiomyoma of uterus

== ENCOUNTER 2018-07-08 17:26 | Inpatient (IN) | payer SELFPAY ==
[2018-07-08 17:27] VITALS: BMI 26.6
[2018-07-08] MEDS ORDERED: Sodium Chloride 0.9% 1,000 ML IV ONE ×2 (17:56→22:00)
[2018-07-08 18:20] LABS: BASO % 0.4 % (0.0-2.0); EOS % 0.1 % (0.0-4.0); MONO # 0.3 K/uL (0.0-0.8); WHITE BLOOD COUNT 9.3 K/uL (4.8-10.8)
[2018-07-08] MEDS ORDERED: Sodium Chloride 0.9% 1,000 ML ONE (18:22)
[2018-07-08 18:24] LABS: LYMPH # 0.9 K/uL (1.0-4.3); LYMPH % 9.3 % (20.0-40.0); MEAN CORPUSCULAR HEMOGLOBIN 23.6 pg (27.0-31.0); MEAN CORPUSCULAR HGB CONC 31.5 g/dL (33.0-37.0); MEAN PLATELET VOLUME 8.3 fL (7.2-11.7); MONO % 3.3 % (0.0-10.0); NEUT % 86.9 % (50.0-75.0); PLATELET COUNT 281 K/uL (130-400); RBC 4.67 Mil/uL (3.80-5.20); RED CELL DISTRIBUTION WIDTH 21.5 % (11.5-14.5)
[2018-07-08 18:25] LABS: HCG,QUALITATIVE URINE NEGATIVE (NEGATIVE)
[2018-07-08 18:31] LABS: SQUAMOUS EPITHIAL 1 /hpf (0-5); URINE BACTERIA RARE (<OCC); URINE BILIRUBIN NEGATIVE (NEGATIVE); URINE BLOOD 3+ (NEGATIVE); URINE CLARITY Hazy (Clear); URINE COLOR Yellow (YELLOW); URINE GLUCOSE (UA) NORMAL (Normal); URINE LEUKOCYTE ESTERASE NEG Leu/uL (Negative); URINE PROTEIN 1+ mg/dL (NEGATIVE); URINE UROBILINOGEN NORMAL mg/dL (0.2-1.0)
[2018-07-08 18:41] LABS: ALB/GLOB RATIO 1.5 (1.0-2.1); ALBUMIN 4.2 g/dL (3.5-5.0); ALT/SGPT 20 U/L (9-52); AST/SGOT 22 U/L (14-36); BLOOD UREA NITROGEN 17 mg/dL (7-17); CALCIUM 8.8 mg/dl (8.6-10.4); GFR NON-AFRICAN AMERICAN > 60; LIPASE 50 U/L (23-300)
--- NOTE | 2018-07-08 18:59 | C.PDOC ---
History Of Present Illness Patient presents to ED c/o LUQ and L flank pain since earlier today, associated with nausea. Patient denies fever, vomiting, diarrhea, dysuria/hematuria, chest pain, SOB, cough. PMHx : PE in Eliquis, HTN Time Seen by Provider: 07/08/18 17:39 Chief Complaint (Nursing): Abdominal Pain History Per: Patient History/Exam Limitations: no limitations Onset/Duration Of Symptoms: Hrs Current Symptoms Are (Timing): Still Present Severity: Moderate Location Of Pain/Discomfort: LUQ, Other (L flank) Quality Of Discomfort: "Pain" Past Medical History Reviewed: Historical Data, Nursing Documentation, Vital Signs Vital Signs: Last Vital Signs Temp 98.8 F 07/08/18 17:31 Pulse 75 07/08/18 17:31 Resp 18 07/08/18 17:31 BP 136/87 07/08/18 17:31 Pulse Ox 99 07/08/18 17:31 - Medical History PMH: HTN, Pulmonary Embolism - [facility] Procedures INJECT/INFUSE NEC (01/16/13) Family History: States: No Known Family Hx - Social History Hx Tobacco Use: No Hx Alcohol Use: No Hx Substance Use: No - Immunization History Hx Tetanus Toxoid Vaccination: Yes Hx Influenza Vaccination: Yes Hx Pneumococcal Vaccination: No Review Of Systems Constitutional: Positive for: Chills Cardiovascular: Negative for: Chest Pain, Palpitations Respiratory: Negative for: Cough, Shortness of Breath Gastrointestinal: Positive for: Nausea, Abdominal Pain. Negative for: Vomiting, Diarrhea Musculoskeletal: Positive for: Back Pain (flank pain) Skin: Negative for: Rash Physical Exam - Physical Exam Appears: Well, Non-toxic, In Acute Distress (in mild pain) Skin: Normal Color, Warm, Dry Eye(s): bilateral: Normal Inspection Oral Mucosa: Moist Cardiovascular: Rhythm Regular Respiratory: Normal Breath Sounds, No Rales, No Rhonchi, No Wheezing Gastrointestinal/Abdominal: Bowel Sounds, Soft, Tenderness ((+) epigastric and LUQ TTP, (-) Allen's, (-) McBurney's) Back: CVA Tenderness (left) Neurological/Psych: Oriented x3 ED Course And Treatment - Laboratory Results Result Diagrams: 07/08/18 18:27 07/08/18 18:17 Lab Results: Total Bilirubin 0.4 mg/dL (0.2-1.3) 07/08/18 18:17 AST 22 U/L (14-36) 07/08/18 18:17 ALT 20 U/L (9-52) 07/08/18 18:17 Alkaline Phosphatase 69 U/L (38-126) 07/08/18 18:17 Total Protein 7.1 g/dL (6.3-8.3) 07/08/18 18:17 Albumin 4.2 g/dL (3.5-5.0) 07/08/18 18:17 Globulin 2.9 gm/dL (2.2-3.9) 07/08/18 18:17 Albumin/Globulin Ratio 1.5 (1.0-2.1) 07/08/18 18:17 Lipase 50 U/L (23-300) 07/08/18 18:17 Urine Color Yellow (YELLOW) 07/08/18 18:16 Urine Clarity Hazy (Clear) 07/08/18 18:16 Urine pH 6.0 (5.0-8.0) 07/08/18 18:16 Ur Specific [place] 1.024 (1.003-1.030) 07/08/18 18:16 Urine Protein 1+ mg/dL (NEGATIVE) H 07/08/18 18:16 Urine Glucose (UA) Normal mg/dL (Normal) 07/08/18 18:16 Urine Ketones Trace mg/dL (NEGATIVE) 07/08/18 18:16 Urine Blood 3+ (NEGATIVE) H 07/08/18 18:16 Urine Nitrate Negative (NEGATIVE) 07/08/18 18:16 Urine Bilirubin Negative (NEGATIVE) 07/08/18 18:16 Urine Urobilinogen Normal mg/dL (0.2-1.0) 07/08/18 18:16 Ur Leukocyte Esterase Neg Kumar/uL (Negative) 07/08/18 18:16 Urine WBC (Auto) 2 /hpf (0-5) 07/08/18 18:16 Urine RBC (Auto) 273 /hpf (0-3) H 07/08/18 18:16 Ur Squamous Epith Cells 1 /hpf (0-5) 07/08/18 18:16 Urine Bacteria Rare (<OCC) 07/08/18 18:16 Urine HCG, Qual Negative (NEGATIVE) 07/08/18 18:16 Urine HCG, Qual Negative (NEGATIVE) 07/08/18 18:16 O2 Sat by Pulse Oximetry: 99 (RA) Pulse Ox Interpretation: Normal Progress Note: Blood work, UA, US of abdomen ordered and reviewed. Patient given IV NS bolus, IV protonix. Patienyt continued to have pain - IV toradol ordered. Disposition - Disposition Disposition Time: 19:00 Condition: STABLE - Clinical Impression Clinical Impression: Left flank pain, LUQ abdominal pain Physician Patient Turnover Patient Signed Over To: Gino Sena Handoff Comments: pendign US, reassessment
[2018-07-08 19:18] LABS: ANISOCYTOSIS SLIGHT; BANDS 1 % (0-2); HYPOCHROMIC MODERATE; LYMPHOCYTE 7 % (20-40); MICROCYTOSIS SLIGHT; MONOCYTE 3 % (0-10); NEUTROPHIL 89 % (50-75); POIKILOCYTOSIS SLIGHT; TARGET CELLS SLIGHT; TOTAL CELLS COUNTED 100
[2018-07-08 19:19] LABS: BURR CELLS SLIGHT; PLATELET ESTIMATE NORMAL (NORMAL)
[2018-07-08] MEDS ORDERED: Iohexol 240 (50 ml) PO ONE (22:01)
[2018-07-09 00:40] LABS: BASO % 0.3 % (0.0-2.0); EOS % 0.1 % (0.0-4.0); HEMOGLOBIN 9.5 g/dL (11.0-16.0); MEAN CELL VOLUME 74.5 fL (81.0-99.0); MEAN CORPUSCULAR HEMOGLOBIN 23.9 pg (27.0-31.0); MEAN PLATELET VOLUME 8.5 fL (7.2-11.7); MONO # 0.4 K/uL (0.0-0.8); NEUT # 6.9 K/uL (1.8-7.0); NEUT % 82.6 % (50.0-75.0); RED CELL DISTRIBUTION WIDTH 20.8 % (11.5-14.5); WHITE BLOOD COUNT 8.4 K/uL (4.8-10.8)
[2018-07-09 00:52] LABS: INR 1.3; PROTHROMBIN TIME 14.2 SECONDS (9.7-12.2)
[2018-07-09 01:08] LABS: ALBUMIN 2.1 g/dL (3.5-5.0); ALT/SGPT 20 U/L (9-52); AST/SGOT 11 U/L (14-36); BLOOD UREA NITROGEN 10 mg/dL (7-17); CALCIUM 5.3 mg/dl (8.6-10.4); GFR NON-AFRICAN AMERICAN > 60; LIPASE 28 U/L (23-300)
--- NOTE | 2018-07-09 01:50 | CP.PCM.HP ---
<Hallie Dyer - Last Filed: 07/09/18 02:57> History of Present Illness - History of Present Illness History of Present Illness: PGY-1 Hallie Dyer D.O. H&P for Dr. Gil's service: Patient is a 47 yo female with history of HTN, PE, and anemia who presents with abdominal pain. Patient states that the pain started yesterday while at work. Pain is located in her epigastric region. The pain increased in intensity today and now radiates to the back. She also feels like her abdomen is more distended. She vomited once today and admits to nausea. The last time she ate was breakfast . She denies any recent significant weight loss. She is on Eliquis for h/o PE in Feb 2018. She denies any alcohol use. 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; denies alcohol, tobacco, or illicit drug use PMD: [facility] ([facility]) Present on Admission - Present on Admission Any Indicators Present on Admission: Yes History of DVT/PE: Yes History of Uncontrolled Diabetes: No Urinary Catheter: No Decubitus Ulcer Present: No History Surgical Site Infection Following: None Review of Systems - Constitutional Constitutional: absent: Anorexia, Chills, Fever, Weight Loss - EENT Eyes: absent: Change in Vision Ears: absent: Decreased Hearing Nose/Mouth/Throat: absent: Nasal Congestion - Cardiovascular Cardiovascular: absent: Chest Pain, Diaphoresis, Palpitations - Respiratory Respiratory: absent: Cough, Dyspnea - Gastrointestinal Gastrointestinal: As Per HPI, Bloating, Nausea, Vomiting. absent: Constipation, Diarrhea - Genitourinary Genitourinary: absent: Dysuria, Hematuria - Musculoskeletal Musculoskeletal: Back Pain. absent: Numbness, Tingling - Integumentary Integumentary: absent: Lesions, Rash - Neurological Neurological: absent: Dizziness, Focal Weakness, Headaches, Sensory Deficit - Psychiatric Psychiatric: absent: Anxiety, Depression - Endocrine Endocrine: absent: Fatigue, Palpitations, Polydipsia, Polyphagia, Polyuria - Hematologic/Lymphatic Hematologic: absent: Easy Bleeding, Easy Bruising, Lymphadenopathy Past Patient History - Infectious Disease Hx of Infectious Diseases: None - Tetanus Immunizations Tetanus Immunization: Unknown - Past Medical History & Family History Past Medical History?: Yes Past Family History: Reviewed and not pertinent - Past Social History Smoking Status: Never Smoked Chewing Tobacco Use: No Cigar Use: No Alcohol: None Drugs: Denies - CARDIAC Hx Hypertension: Yes - PULMONARY Hx Pulmonary Embolism: Yes - MUSCULOSKELETAL/RHEUMATOLOGICAL Hx Falls: No - GENITOURINARY/GYNECOLOGICAL Other/Comment: ectopic - PSYCHIATRIC Hx Substance Use: No - SURGICAL HISTORY Hx Surgeries: Yes Other/Comment: ectopic - ANESTHESIA Hx Anesthesia: Yes Hx Anesthesia Reactions: No Meds Home Medications: Home Medication List Medication Instructions Recorded Confirmed Type Ondansetron ODT [Zofran ODT] 1 odt PO BID PRN #6 odt 07/08/18 Rx traMADol/Acetaminophen [Ultracet 1 tab PO Q6 #14 tab 07/08/18 Rx 325 MG-37.5 MG] Allergies/Adverse Reactions: Allergies Allergy/AdvReac Type Severity Reaction Status Date / Time No Known Allergies Allergy Verified 07/08/18 17:36 Physical Exam - Constitutional Appears: Non-toxic, No Acute Distress - Head Exam Head Exam: ATRAUMATIC, NORMAL INSPECTION - Eye Exam Eye Exam: EOMI, Normal appearance, PERRL - ENT Exam ENT Exam: Mucous Membranes Moist - Neck Exam Neck exam: Positive for: Normal Inspection - Respiratory Exam Respiratory Exam: Clear to Auscultation Bilateral, NORMAL BREATHING PATTERN - Cardiovascular Exam Cardiovascular Exam: RRR, +S1, +S2 - GI/Abdominal Exam GI & Abdominal Exam: Normal Bowel Sounds, Soft, Tenderness (b/l upper). absent: Distended, Rebound Additional comments: Allen's sign negative - Extremities Exam Extremities exam: Positive for: normal inspection, pedal pulses present. Negative for: pedal edema - Back Exam Back exam: CVA tenderness (L), CVA tenderness (R), NORMAL INSPECTION, paraspinal tenderness - Neurological Exam Neurological exam: Alert, CN II-XII Intact, Normal Gait, Oriented x3 - Psychiatric Exam Psychiatric exam: Normal Affect, Normal Mood - Skin Skin Exam: Dry, Intact, Normal Color, Warm Results - Vital Signs Recent Vital Signs: Last Vital Signs Temp 98.9 F 07/09/18 00:34 Pulse 74 07/09/18 00:34 Resp 20 07/09/18 00:34 BP 133/78 07/09/18 00:34 Pulse Ox 100 07/09/18 00:34 - Labs Result Diagrams: 07/09/18 00:37 07/09/18 00:37 Labs: Laboratory Results - last 24 hr 07/08/18 07/08/18 07/08/18 18:16 18:17 18:27 WBC 9.3 D RBC 4.67 Hgb 11.0 D Hct 35.0 MCV 75.0 L D MCH 23.6 L MCHC 31.5 L RDW 21.5 H Plt Count 281 D MPV 8.3 Neut % (Auto) 86.9 H Lymph % (Auto) 9.3 L [place] % (Auto) 3.3 Eos % (Auto) 0.1 Baso % (Auto) 0.4 Neut # (Auto) 8.0 H Lymph # (Auto) 0.9 L [place] # (Auto) 0.3 Eos # (Auto) 0.0 Baso # (Auto) 0.0 Neutrophils % (Manual) 89 H Band Neutrophils % 1 Lymphocytes % (Manual) 7 L Monocytes % (Manual) 3 Platelet Estimate Normal Hypochromasia (manual) Moderate Poikilocytosis (manual Slight Anisocytosis (manual) Slight Microcytosis (manual) Slight Target Cells Slight Ramón Cells Slight PT INR APTT Sodium 135 Potassium 3.8 Chloride 100 Carbon Dioxide 25 Anion Gap 14 BUN 17 Creatinine 0.6 L Est GFR ( Amer) > 60 Est GFR (Non-Af Amer) > 60 Random Glucose 104 D Lactic Acid Calcium 8.8 Total Bilirubin 0.4 AST 22 ALT 20 Alkaline Phosphatase 69 Total Protein 7.1 Albumin 4.2 Globulin 2.9 Albumin/Globulin Ratio 1.5 Lipase 50 Urine Color Yellow Urine Clarity Hazy Urine pH 6.0 Ur Specific [place] 1.024 Urine Protein 1+ H Urine Glucose (UA) Normal Urine Ketones Trace Urine Blood 3+ H Urine Nitrate Negative Urine Bilirubin Negative Urine Urobilinogen Normal Ur Leukocyte Esterase Neg Urine WBC (Auto) 2 Urine RBC (Auto) 273 H Ur Squamous Epith Cells 1 Urine Bacteria Rare Urine HCG, Qual Negative 07/09/18 07/09/18 07/09/18 00:37 00:37 00:37 WBC 8.4 RBC 4.00 Hgb 9.5 L Hct 29.8 L MCV 74.5 L MCH 23.9 L MCHC 32.0 L RDW 20.8 H Plt Count 251 MPV 8.5 Neut % (Auto) 82.6 H Lymph % (Auto) 12.0 L [place] % (Auto) 5.0 Eos % (Auto) 0.1 Baso % (Auto) 0.3 Neut # (Auto) 6.9 Lymph # (Auto) 1.0 [place] # (Auto) 0.4 Eos # (Auto) 0.0 Baso # (Auto) 0.0 Neutrophils % (Manual) Band Neutrophils % Lymphocytes % (Manual) Monocytes % (Manual) Platelet Estimate Hypochromasia (manual) Poikilocytosis (manual Anisocytosis (manual) Microcytosis (manual) Target Cells [place] Cells PT 14.2 H INR 1.3 APTT 28 Sodium 136 Potassium 2.4 L* D Chloride 114 H Carbon Dioxide 15 L Anion Gap 9 L BUN 10 Creatinine 0.3 L Est GFR ( Amer) > 60 Est GFR (Non-Af Amer) > 60 Random Glucose 76 D Lactic Acid Calcium 5.3 L* D Total Bilirubin 0.3 AST 11 L D ALT 20 Alkaline Phosphatase 41 Total Protein 4.1 L Albumin 2.1 L D Globulin 2.1 L Albumin/Globulin Ratio 1.0 Lipase 28 Urine Color Urine Clarity Urine pH Ur Specific [place] Urine Protein Urine Glucose (UA) Urine Ketones Urine Blood Urine Nitrate Urine Bilirubin Urine Urobilinogen Ur Leukocyte Esterase Urine WBC (Auto) Urine RBC (Auto) Ur Squamous Epith Cells Urine Bacteria Urine HCG, Qual 07/09/18 00:37 WBC RBC Hgb Hct MCV MCH MCHC RDW Plt Count MPV Neut % (Auto) Lymph % (Auto) [place] % (Auto) Eos % (Auto) Baso % (Auto) Neut # (Auto) Lymph # (Auto) [place] # (Auto) Eos # (Auto) Baso # (Auto) Neutrophils % (Manual) Band Neutrophils % Lymphocytes % (Manual) Monocytes % (Manual) Platelet Estimate Hypochromasia (manual) Poikilocytosis (manual Anisocytosis (manual) Microcytosis (manual) Target Cells [place] Cells PT INR APTT Sodium Potassium Chloride Carbon Dioxide Anion Gap BUN Creatinine Est GFR ( Amer) Est GFR (Non-Af Amer) Random Glucose Lactic Acid 1.4 Calcium Total Bilirubin AST ALT Alkaline Phosphatase Total Protein Albumin Globulin Albumin/Globulin Ratio Lipase Urine Color Urine Clarity Urine pH Ur Specific [place] Urine Protein Urine Glucose (UA) Urine Ketones Urine Blood Urine Nitrate Urine Bilirubin Urine Urobilinogen Ur Leukocyte Esterase Urine WBC (Auto) Urine RBC (Auto) Ur Squamous Epith Cells Urine Bacteria Urine HCG, Qual Assessment & Plan - Assessment and Plan (Free Text) Assessment: Patient is a 47 yo female with history of HTN, PE, and anemia who presents with abdominal pain. CT A/P shows hemorrhagic pancreatitis. Hgb dropped from 11 to 9.5. Patient will be monitored in the ICU. Plan: Hemorrhagic pancreatitis - Abd US: no acute findings, no gallstones, unremarkable pancreas - CT A/P: Peripancreatic stranding and fluid compatible with pancreatitis, moderate hemorrhagic fluid in right anterior pararenal space and anterior to pancreatic head, small amount of hemorrhagic fluid in low pelvis- findings suggest hemorrhagic/necrotizing pancreatitis. Associated partial thrombosis of SMA. - VSS - No leukocytosis - Lipase 28 - Lactate 1.4 - PT/INR/PTT wnl - f/u Blood cultures - Monitor Hgb (acute drop 11-->9.5) - NPO - D5NS @ 80 cc/hr - ICU consult- monitor in ICU - Surgery consult ([facility]) Acute on chronic microcytic anemia 2/2 hemorrhagic pancreatitis - Monitor Hgb (acute drop 11-->9.5) - MCV 74.5 - Transfuse pRBC PRN - Home Ferrous sulfate 324 mg PO daily- hold while NPO Hypokalemia - K 3.8-->2.4 - f/u EKG - Monitor BMP - Replete PRN Hypocalcemia - Asymptomatic - Repeat CMP in AM Microscopic hematuria - UA: 1+ prot, 3+ blood, 273 RBC - f/u Urine Cx Hypertension - Vitals Q4H - Home lisinopril 5 mg PO daily- hold while NPO H/o bilateral pulmonary embolism - Hold Eliquis due to acute bleed Uterine fibroids with menorrhagia - OCPs discontinued in Feb 2018 due to PEs - CT A/P: 4 cm hypodense rounded lesion within uterine body Ppx: VTE: SCDs, chemical anticoag contraindicated due to acute bleed GI: not indicated Code status: full code Case discussed with attending, Dr. Gil. <Arnaud Gil - Last Filed: 07/09/18 06:32> Results - Vital Signs Recent Vital Signs: Last Vital Signs Temp 98.7 F 07/09/18 02:57 Pulse 69 07/09/18 05:00 Resp 11 L 07/09/18 05:00 BP 114/66 07/09/18 04:35 Pulse Ox 100 07/09/18 05:00 - Labs Result Diagrams: 07/09/18 00:37 07/09/18 00:37 Labs: Laboratory Results - last 24 hr 07/08/18 07/08/18 07/08/18 18:16 18:17 18:27 WBC 9.3 D RBC 4.67 Hgb 11.0 D Hct 35.0 MCV 75.0 L D MCH 23.6 L MCHC 31.5 L RDW 21.5 H Plt Count 281 D MPV 8.3 Neut % (Auto) 86.9 H Lymph % (Auto) 9.3 L [place] % (Auto) 3.3 Eos % (Auto) 0.1 Baso % (Auto) 0.4 Neut # (Auto) 8.0 H Lymph # (Auto) 0.9 L [place] # (Auto) 0.3 Eos # (Auto) 0.0 Baso # (Auto) 0.0 Neutrophils % (Manual) 89 H Band Neutrophils % 1 Lymphocytes % (Manual) 7 L Monocytes % (Manual) 3 Platelet Estimate Normal Hypochromasia (manual) Moderate Poikilocytosis (manual Slight Anisocytosis (manual) Slight Microcytosis (manual) Slight Target Cells Slight [place] Cells Slight PT INR APTT Sodium 135 Potassium 3.8 Chloride 100 Carbon Dioxide 25 Anion Gap 14 BUN 17 Creatinine 0.6 L Est GFR ( Amer) > 60 Est GFR (Non-Af Amer) > 60 Random Glucose 104 D Lactic Acid Calcium 8.8 Phosphorus Magnesium Total Bilirubin 0.4 AST 22 ALT 20 Alkaline Phosphatase 69 Total Protein 7.1 Albumin 4.2 Globulin 2.9 Albumin/Globulin Ratio 1.5 Amylase Lipase 50 Urine Color Yellow Urine Clarity Hazy Urine pH 6.0 Ur Specific [place] 1.024 Urine Protein 1+ H Urine Glucose (UA) Normal Urine Ketones Trace Urine Blood 3+ H Urine Nitrate Negative Urine Bilirubin Negative Urine Urobilinogen Normal Ur Leukocyte Esterase Neg Urine WBC (Auto) 2 Urine RBC (Auto) 273 H Ur Squamous Epith Cells 1 Urine Bacteria Rare Urine HCG, Qual Negative Blood Type Antibody Screen 07/09/18 07/09/18 07/09/18 00:37 00:37 00:37 WBC 8.4 RBC 4.00 Hgb 9.5 L Hct 29.8 L MCV 74.5 L MCH 23.9 L MCHC 32.0 L RDW 20.8 H Plt Count 251 MPV 8.5 Neut % (Auto) 82.6 H Lymph % (Auto) 12.0 L [place] % (Auto) 5.0 Eos % (Auto) 0.1 Baso % (Auto) 0.3 Neut # (Auto) 6.9 Lymph # (Auto) 1.0 [place] # (Auto) 0.4 Eos # (Auto) 0.0 Baso # (Auto) 0.0 Neutrophils % (Manual) Band Neutrophils % Lymphocytes % (Manual) Monocytes % (Manual) Platelet Estimate Hypochromasia (manual) Poikilocytosis (manual Anisocytosis (manual) Microcytosis (manual) Target Cells Ramón Cells PT 14.2 H INR 1.3 APTT 28 Sodium 136 Potassium 2.4 L* D Chloride 114 H Carbon Dioxide 15 L Anion Gap 9 L BUN 10 Creatinine 0.3 L Est GFR ( Amer) > 60 Est GFR (Non-Af Amer) > 60 Random Glucose 76 D Lactic Acid Calcium 5.3 L* D Phosphorus Magnesium Total Bilirubin 0.3 AST 11 L D ALT 20 Alkaline Phosphatase 41 Total Protein 4.1 L Albumin 2.1 L D Globulin 2.1 L Albumin/Globulin Ratio 1.0 Amylase Lipase 28 Urine Color Urine Clarity Urine pH Ur Specific [place] Urine Protein Urine Glucose (UA) Urine Ketones Urine Blood Urine Nitrate Urine Bilirubin Urine Urobilinogen Ur Leukocyte Esterase Urine WBC (Auto) Urine RBC (Auto) Ur Squamous Epith Cells Urine Bacteria Urine HCG, Qual Blood Type Antibody Screen 07/09/18 07/09/18 07/09/18 00:37 02:32 02:38 WBC RBC Hgb Hct MCV MCH MCHC RDW Plt Count MPV Neut % (Auto) Lymph % (Auto) [place] % (Auto) Eos % (Auto) Baso % (Auto) Neut # (Auto) Lymph # (Auto) [place] # (Auto) Eos # (Auto) Baso # (Auto) Neutrophils % (Manual) Band Neutrophils % Lymphocytes % (Manual) Monocytes % (Manual) Platelet Estimate Hypochromasia (manual) Poikilocytosis (manual Anisocytosis (manual) Microcytosis (manual) Target Cells Ramón Cells PT INR APTT Sodium Potassium Chloride Carbon Dioxide Anion Gap BUN Creatinine Est GFR ( Amer) Est GFR (Non-Af Amer) Random Glucose Lactic Acid 1.4 Calcium Phosphorus 2.8 Magnesium 1.5 L Total Bilirubin AST ALT Alkaline Phosphatase Total Protein Albumin Globulin Albumin/Globulin Ratio Amylase Lipase Urine Color Urine Clarity Urine pH Ur Specific [place] Urine Protein Urine Glucose (UA) Urine Ketones Urine Blood Urine Nitrate Urine Bilirubin Urine Urobilinogen Ur Leukocyte Esterase Urine WBC (Auto) Urine RBC (Auto) Ur Squamous Epith Cells Urine Bacteria Urine HCG, Qual Blood Type B POSITIVE Antibody Screen Negative 07/09/18 05:37 WBC RBC Hgb Hct MCV MCH MCHC RDW Plt Count MPV Neut % (Auto) Lymph % (Auto) [place] % (Auto) Eos % (Auto) Baso % (Auto) Neut # (Auto) Lymph # (Auto) [place] # (Auto) Eos # (Auto) Baso # (Auto) Neutrophils % (Manual) Band Neutrophils % Lymphocytes % (Manual) Monocytes % (Manual) Platelet Estimate Hypochromasia (manual) Poikilocytosis (manual Anisocytosis (manual) Microcytosis (manual) Target Cells [place] Cells PT INR APTT Sodium Potassium Chloride Carbon Dioxide Anion Gap BUN Creatinine Est GFR ( Amer) Est GFR (Non-Af Amer) Random Glucose Lactic Acid Calcium Phosphorus Magnesium Total Bilirubin AST ALT Alkaline Phosphatase Total Protein Albumin Globulin Albumin/Globulin Ratio Amylase 55 Lipase Urine Color Urine Clarity Urine pH Ur Specific [place] Urine Protein Urine Glucose (UA) Urine Ketones Urine Blood Urine Nitrate Urine Bilirubin Urine Urobilinogen Ur Leukocyte Esterase Urine WBC (Auto) Urine RBC (Auto) Ur Squamous Epith Cells Urine Bacteria Urine HCG, Qual Blood Type Antibody Screen Assessment & Plan - Date & Time Date: 07/09/18 (I have seen and examined the patient. I agree with the findings and plan of care as documented by Dr. Dyer. Patient with hemorrhagic pancreatitis and anemia. Admit to ICU. Consult to surgery. Transfuse PRBCs as needed. Monitor for hemodynamic instability. Electrolyte imbalance. Replete as needed. History of pulmonary embolism. Hold home meds due to bleed. Mon itor for acute changes.) Time: 06:31 Attending/Attestation - Attestation I have personally seen and examined this patient.: Yes I have fully participated in the care of the patient.: Yes I have reviewed all pertinent clinical information: Yes
[2018-07-09] MEDS ORDERED: Dextrose 5%/0.9% NS 1,000 ML IV SCH (02:15)
--- NOTE | 2018-07-09 02:38 | CP.PCM.CON ---
History of Present Illness - History of Present Illness History of Present Illness: 47 y/o female with PMH of HTN,iron deficiency anemia on iron supplements,Bilateral pulmonary embolism 02/2018 on Eliquis seen in ER 05/07/19 for upper abdominal pain and bloating .She was given IV fluids,had US and labs done and discharged.Prior to leaving [facility] she had severe pain and patient came back to ER.Vomited once.Pain meds given with improvement in pain.Denies chest pain ,palpitations,difficulty breathing CT done during 2nd visit shows hemorrhagic pancreatitis with decrease in Hb from 11 to 9.5gm/dl 5 Lb weight loss during the past year.no h/o similar symptoms Review of Systems - Review of Systems Systems not reviewed;Unavailable: Language Barrier Review of Systems: history via Spanic speaking RN - Constitutional Constitutional: absent: Anorexia, Chills - EENT Eyes: absent: Change in Vision, Pain Ears: absent: Dizziness Nose/Mouth/Throat: absent: Nasal Congestion, Sore Throat - Cardiovascular Cardiovascular: absent: Chest Pain, Dyspnea, Leg Edema, Palpitations - Respiratory Respiratory: absent: Cough, Dyspnea - Gastrointestinal Gastrointestinal: Abdominal Pain, Bloating, Vomiting. absent: Change in Bowel Habits, Change in Stool Character, Diarrhea, Heartburn - Genitourinary Genitourinary: absent: Dysuria, Flank Pain - Musculoskeletal Musculoskeletal: absent: Back Pain - Integumentary Integumentary: absent: Bleeding Lesions, Rash - Neurological Neurological: absent: Dizziness - Endocrine Endocrine: absent: Palpitations, Polydipsia, Polyphagia - Hematologic/Lymphatic Hematologic: absent: Easy Bleeding Past Patient History - Tetanus Immunizations Tetanus Immunization: Unknown - Past Social History Smoking Status: Never Smoked Occupation: house keeper Alcohol: None Drugs: Denies - CARDIAC Hx Hypertension: Yes - PULMONARY Hx Pulmonary Embolism: Yes - HEMATOLOGICAL/ONCOLOGICAL Hx Anemia: Yes (on iron) - MUSCULOSKELETAL/RHEUMATOLOGICAL Hx Falls: No - GENITOURINARY/GYNECOLOGICAL Other/Comment: ectopic - PSYCHIATRIC Hx Substance Use: No - SURGICAL HISTORY Hx Surgeries: Yes Other/Comment: ectopic - ANESTHESIA Hx Anesthesia: Yes Hx Anesthesia Reactions: No Meds Home Medications: Home Medication List Medication Instructions Recorded Confirmed Type Ondansetron ODT [Zofran ODT] 1 odt PO BID PRN #6 odt 07/08/18 Rx traMADol/Acetaminophen [Ultracet 1 tab PO Q6 #14 tab 07/08/18 Rx 325 MG-37.5 MG] Allergies/Adverse Reactions: Allergies Allergy/AdvReac Type Severity Reaction Status Date / Time No Known Allergies Allergy Verified 07/08/18 17:36 - Medications Medications: Current Medications Sodium Chloride (Sodium Chloride 0.9%) 1,000 mls @ 100 mls/hr IV .Q10H ONE Stop: 07/09/18 07:59 Last Admin: 07/08/18 22:23 Dose: 100 mls/hr Potassium Chloride (Potassium Chloride 20 Meq/100 Ml) 20 meq in 100 mls @ 50 mls/hr IVPB ONCE ONE Stop: 07/09/18 03:07 Last Admin: 07/09/18 01:46 Dose: 50 mls/hr Dextrose/Sodium Chloride (Dextrose 5%/0.9% Ns 1000 Ml) 1,000 mls @ 80 mls/hr IV .[id number] Last Admin: 07/09/18 02:32 Dose: 80 mls/hr Physical Exam - Constitutional Appears: No Acute Distress - Head Exam Head Exam: ATRAUMATIC, NORMAL INSPECTION, NORMOCEPHALIC - Eye Exam Eye Exam: EOMI Pupil Exam: NORMAL ACCOMODATION, PERRL - ENT Exam ENT Exam: Mucous Membranes Moist - Neck Exam Neck exam: Positive for: Full Rom, Normal Inspection - Respiratory Exam Respiratory Exam: Clear to Auscultation Bilateral - Cardiovascular Exam Cardiovascular Exam: REGULAR RHYTHM - GI/Abdominal Exam GI & Abdominal Exam: Normal Bowel Sounds, Soft, Tenderness Additional comments: tender in left upper quadrant,no reboundtenderness or guarding - Extremities Exam Extremities exam: Positive for: normal inspection. Negative for: calf tenderness, pedal edema - Back Exam Back exam: NORMAL INSPECTION - Neurological Exam Neurological exam: Alert, Oriented x3 - Skin Skin Exam: Normal Color, Warm Results - Vital Signs Recent Vital Signs: Last Vital Signs Temp 98.7 F 07/09/18 02:00 Pulse 66 07/09/18 02:00 Resp 16 07/09/18 02:00 BP 129/86 07/09/18 02:00 Pulse Ox 100 07/09/18 02:00 - Labs Result Diagrams: 07/09/18 00:37 07/09/18 00:37 Labs: Laboratory Results - last 24 hr 07/08/18 07/08/1819 18:16 18:17 18:27 WBC 9.3 D RBC 4.67 Hgb 11.0 D Hct 35.0 MCV 75.0 L D MCH 23.6 L MCHC 31.5 L RDW 21.5 H Plt Count 281 D MPV 8.3 Neut % (Auto) 86.9 H Lymph % (Auto) 9.3 L [place] % (Auto) 3.3 Eos % (Auto) 0.1 Baso % (Auto) 0.4 Neut # (Auto) 8.0 H Lymph # (Auto) 0.9 L [place] # (Auto) 0.3 Eos # (Auto) 0.0 Baso # (Auto) 0.0 Neutrophils % (Manual) 89 H Band Neutrophils % 1 Lymphocytes % (Manual) 7 L Monocytes % (Manual) 3 Platelet Estimate Normal Hypochromasia (manual) Moderate Poikilocytosis (manual Slight Anisocytosis (manual) Slight Microcytosis (manual) Slight Target Cells Slight [place] Cells Slight PT INR APTT Sodium 135 Potassium 3.8 Chloride 100 Carbon Dioxide 25 Anion Gap 14 BUN 17 Creatinine 0.6 L Est GFR ( Amer) > 60 Est GFR (Non-Af Amer) > 60 Random Glucose 104 D Lactic Acid Calcium 8.8 Total Bilirubin 0.4 AST 22 ALT 20 Alkaline Phosphatase 69 Total Protein 7.1 Albumin 4.2 Globulin 2.9 Albumin/Globulin Ratio 1.5 Lipase 50 Urine Color Yellow Urine Clarity Hazy Urine pH 6.0 Ur Specific [place] 1.024 Urine Protein 1+ H Urine Glucose (UA) Normal Urine Ketones Trace Urine Blood 3+ H Urine Nitrate Negative Urine Bilirubin Negative Urine Urobilinogen Normal Ur Leukocyte Esterase Neg Urine WBC (Auto) 2 Urine RBC (Auto) 273 H Ur Squamous Epith Cells 1 Urine Bacteria Rare Urine HCG, Qual Negative Blood Type Antibody Screen 07/09/18 07/09/18 07/09/18 00:37 00:37 00:37 WBC 8.4 RBC 4.00 Hgb 9.5 L Hct 29.8 L MCV 74.5 L MCH 23.9 L MCHC 32.0 L RDW 20.8 H Plt Count 251 MPV 8.5 Neut % (Auto) 82.6 H Lymph % (Auto) 12.0 L [place] % (Auto) 5.0 Eos % (Auto) 0.1 Baso % (Auto) 0.3 Neut # (Auto) 6.9 Lymph # (Auto) 1.0 [place] # (Auto) 0.4 Eos # (Auto) 0.0 Baso # (Auto) 0.0 Neutrophils % (Manual) Band Neutrophils % Lymphocytes % (Manual) Monocytes % (Manual) Platelet Estimate Hypochromasia (manual) Poikilocytosis (manual Anisocytosis (manual) Microcytosis (manual) Target Cells Ramón Cells PT 14.2 H INR 1.3 APTT 28 Sodium 136 Potassium 2.4 L* D Chloride 114 H Carbon Dioxide 15 L Anion Gap 9 L BUN 10 Creatinine 0.3 L Est GFR ( Amer) > 60 Est GFR (Non-Af Amer) > 60 Random Glucose 76 D Lactic Acid Calcium 5.3 L* D Total Bilirubin 0.3 AST 11 L D ALT 20 Alkaline Phosphatase 41 Total Protein 4.1 L Albumin 2.1 L D Globulin 2.1 L Albumin/Globulin Ratio 1.0 Lipase 28 Urine Color Urine Clarity Urine pH Ur Specific [place] Urine Protein Urine Glucose (UA) Urine Ketones Urine Blood Urine Nitrate Urine Bilirubin Urine Urobilinogen Ur Leukocyte Esterase Urine WBC (Auto) Urine RBC (Auto) Ur Squamous Epith Cells Urine Bacteria Urine HCG, Qual Blood Type Antibody Screen 07/09/18 07/09/18 00:37 02:32 WBC RBC Hgb Hct MCV MCH MCHC RDW Plt Count MPV Neut % (Auto) Lymph % (Auto) [place] % (Auto) Eos % (Auto) Baso % (Auto) Neut # (Auto) Lymph # (Auto) [place] # (Auto) Eos # (Auto) Baso # (Auto) Neutrophils % (Manual) Band Neutrophils % Lymphocytes % (Manual) Monocytes % (Manual) Platelet Estimate Hypochromasia (manual) Poikilocytosis (manual Anisocytosis (manual) Microcytosis (manual) Target Cells Ramón Cells PT INR APTT Sodium Potassium Chloride Carbon Dioxide Anion Gap BUN Creatinine Est GFR ( Amer) Est GFR (Non-Af Amer) Random Glucose Lactic Acid 1.4 Calcium Total Bilirubin AST ALT Alkaline Phosphatase Total Protein Albumin Globulin Albumin/Globulin Ratio Lipase Urine Color Urine Clarity Urine pH Ur Specific [place] Urine Protein Urine Glucose (UA) Urine Ketones Urine Blood Urine Nitrate Urine Bilirubin Urine Urobilinogen Ur Leukocyte Esterase Urine WBC (Auto) Urine RBC (Auto) Ur Squamous Epith Cells Urine Bacteria Urine HCG, Qual Blood Type B POSITIVE Antibody Screen Negative - EKG Data EKG Interpreted by: Myself - Imaging and Cardiology CT scan - abdomen Status: Image reviewed by me, Report reviewed by me Assessment & Plan - Assessment and Plan (Free Text) Assessment: 1.Hemorrhagic Pancreatitis NPO IV fluids monitor labs analgesics Surgical evaluation 2.Anemia h/o iron deficiency anemia on iron Hb decreased from 11 to 9.5 in ER f/u Hb 3.Pulmonary emboism [id number] on eliquis hold eliquis 4.HTN f/u BP and start meds as needed 5.Hematuria urine c/s
[2018-07-09] MEDS ORDERED: Magnesium Sulfate 1 gm in D5W 1 GM/100 ML BAG IVPB ONE (03:05)
[2018-07-09] MEDS ORDERED: (Novolin R) Insulin Human Regular 100 units/ml vial SC SCH ×3 (03:15→10:00)
--- NOTE | 2018-07-09 05:24 | CP.PCM.CON ---
History of Present Illness - History of Present Illness History of Present Illness: GENERAL SURGERY CONSULT NOTE FOR DR. POOL 47yo F with PMHx of HTN, fibroids, PE on Eliquis presents to the ED with abdominal pain radiating to her back. The pain is located in her epigastric area and radiated to her back. She had 1 episode of vomiting. Pt reports that her abdomen felt "inflamed" but that resolved. Currently, pt states pain is resolved. Of note, pt taking Eliquis for PE in February 2018. Last took 07/08 AM. PMH: HTN, uterine fibroids, anemia 2/2 menorrhagia, b/l PE (02/2018) while on OCPs which were stopped PSH: ectopic Meds: Eliquis 5 mg PO BID, Lisinopril 5 mg PO daily, Ferrous sulfate 325 mg PO d aily All: NKDA SH: works as civil engineer; denies alcohol, tobacco, or illicit drug use Review of Systems - Review of Systems All systems: reviewed and no additional remarkable complaints except (as per HPI) Past Patient History - Infectious Disease Hx of Infectious Diseases: None - Tetanus Immunizations Tetanus Immunization: Unknown - Past Medical History & Family History Past Medical History?: Yes - Past Social History Smoking Status: Never Smoked - CARDIAC Hx Cardiac Disorders: Yes Hx Hypertension: Yes - PULMONARY Hx Respiratory Disorders: Yes Hx Pulmonary Embolism: Yes - NEUROLOGICAL Hx Neurological Disorder: No - HEENT Hx HEENT Problems: Yes Other/Comment: WEARS GLASSES FOR READING - RENAL Hx Chronic Kidney Disease: No - ENDOCRINE/METABOLIC Hx Endocrine Disorders: No - HEMATOLOGICAL/ONCOLOGICAL Hx Blood Disorders: Yes Hx Anemia: Yes (on iron) - INTEGUMENTARY Hx Dermatological Problems: No - MUSCULOSKELETAL/RHEUMATOLOGICAL Hx Musculoskeletal Disorders: No Hx Falls: No - GASTROINTESTINAL Hx Gastrointestinal Disorders: No - GENITOURINARY/GYNECOLOGICAL Hx Genitourinary Disorders: Yes Hx Reproductive Disorders: Yes (uTERINE FIBROIDS) Other/Comment: ectopic - PSYCHIATRIC Hx Psychophysiologic Disorder: No - SURGICAL HISTORY Hx Surgeries: Yes Other/Comment: ectopic - ANESTHESIA Hx Anesthesia: Yes Hx Anesthesia Reactions: No Hx Malignant Hyperthermia: No Has any member of the family had a problem w/ anesthesia?: No Meds Home Medications: Home Medication List Medication Instructions Recorded Confirmed Type Ondansetron ODT [Zofran ODT] 1 odt PO BID PRN #6 odt 07/08/18 Rx traMADol/Acetaminophen [Ultracet 1 tab PO Q6 #14 tab 07/08/18 Rx 325 MG-37.5 MG] Allergies/Adverse Reactions: Allergies Allergy/AdvReac Type Severity Reaction Status Date / Time No Known Allergies Allergy Verified 07/08/18 17:36 - Medications Medications: Current Medications Sodium Chloride (Sodium Chloride 0.9%) 1,000 mls @ 100 mls/hr IV .Q10H ONE Stop: 07/09/18 07:59 Last Admin: 07/08/18 22:23 Dose: 100 mls/hr Dextrose/Sodium Chloride (Dextrose 5%/0.9% Ns 1000 Ml) 1,000 mls @ 80 mls/hr IV .[id number] GABY Last Admin: 07/09/18 02:32 Dose: 80 mls/hr Insulin Human Regular (Novolin R) 0 unit SC Q6H [facility]; Protocol Last Admin: 07/09/18 04:19 Dose: Not Given Morphine Sulfate (Morphine) 2 mg IV Q6 PRN PRN Reason: abdominal pain Last Admin: 07/09/18 04:18 Dose: 2 mg Physical Exam - Constitutional Appears: Well, Non-toxic, No Acute Distress - Head Exam Head Exam: ATRAUMATIC, NORMAL INSPECTION - Eye Exam Eye Exam: EOMI, Normal appearance - Respiratory Exam Respiratory Exam: NORMAL BREATHING PATTERN. absent: Respiratory Distress - Cardiovascular Exam Cardiovascular Exam: +S1, +S2 - GI/Abdominal Exam GI & Abdominal Exam: Soft, Tenderness (mild epigastric tenderness). absent: Distended, Firm, Guarding, Hernia, Rebound, Rigid Additional comments: No hraper oquendo/krista sign - Back Exam Back exam: CVA tenderness (R) - Neurological Exam Neurological exam: Alert, CN II-XII Intact, Oriented x3 - Psychiatric Exam Psychiatric exam: Normal Affect, Normal Mood - Skin Skin Exam: Dry, Normal Color, Warm Results - Vital Signs Recent Vital Signs: Last Vital Signs Temp 98.7 F 07/09/18 02:57 Pulse 69 07/09/18 05:00 Resp 11 L 07/09/18 05:00 BP 114/66 07/09/18 04:35 Pulse Ox 100 07/09/18 05:00 - Labs Result Diagrams: 07/09/18 00:37 07/09/18 00:37 Labs: Laboratory Results - last 24 hr 07/08/18 07/08/18 07/08/18 18:16 18:17 18:27 WBC 9.3 D RBC 4.67 Hgb 11.0 D Hct 35.0 MCV 75.0 L D MCH 23.6 L MCHC 31.5 L RDW 21.5 H Plt Count 281 D MPV 8.3 Neut % (Auto) 86.9 H Lymph % (Auto) 9.3 L [place] % (Auto) 3.3 Eos % (Auto) 0.1 Baso % (Auto) 0.4 Neut # (Auto) 8.0 H Lymph # (Auto) 0.9 L [place] # (Auto) 0.3 Eos # (Auto) 0.0 Baso # (Auto) 0.0 Neutrophils % (Manual) 89 H Band Neutrophils % 1 Lymphocytes % (Manual) 7 L Monocytes % (Manual) 3 Platelet Estimate Normal Hypochromasia (manual) Moderate Poikilocytosis (manual Slight Anisocytosis (manual) Slight Microcytosis (manual) Slight Target Cells Slight [place] Cells Slight PT INR APTT Sodium 135 Potassium 3.8 Chloride 100 Carbon Dioxide 25 Anion Gap 14 BUN 17 Creatinine 0.6 L Est GFR ( Amer) > 60 Est GFR (Non-Af Amer) > 60 Random Glucose 104 D Lactic Acid Calcium 8.8 Phosphorus Magnesium Total Bilirubin 0.4 AST 22 ALT 20 Alkaline Phosphatase 69 Total Protein 7.1 Albumin 4.2 Globulin 2.9 Albumin/Globulin Ratio 1.5 Lipase 50 Urine Color Yellow Urine Clarity Hazy Urine pH 6.0 Ur Specific [place] 1.024 Urine Protein 1+ H Urine Glucose (UA) Normal Urine Ketones Trace Urine Blood 3+ H Urine Nitrate Negative Urine Bilirubin Negative Urine Urobilinogen Normal Ur Leukocyte Esterase Neg Urine WBC (Auto) 2 Urine RBC (Auto) 273 H Ur Squamous Epith Cells 1 Urine Bacteria Rare Urine HCG, Qual Negative Blood Type Antibody Screen 07/09/18 07/09/18 07/09/18 00:37 00:37 00:37 WBC 8.4 RBC 4.00 Hgb 9.5 L Hct 29.8 L MCV 74.5 L MCH 23.9 L MCHC 32.0 L RDW 20.8 H Plt Count 251 MPV 8.5 Neut % (Auto) 82.6 H Lymph % (Auto) 12.0 L [place] % (Auto) 5.0 Eos % (Auto) 0.1 Baso % (Auto) 0.3 Neut # (Auto) 6.9 Lymph # (Auto) 1.0 [place] # (Auto) 0.4 Eos # (Auto) 0.0 Baso # (Auto) 0.0 Neutrophils % (Manual) Band Neutrophils % Lymphocytes % (Manual) Monocytes % (Manual) Platelet Estimate Hypochromasia (manual) Poikilocytosis (manual Anisocytosis (manual) Microcytosis (manual) Target Cells Ramón Cells PT 14.2 H INR 1.3 APTT 28 Sodium 136 Potassium 2.4 L* D Chloride 114 H Carbon Dioxide 15 L Anion Gap 9 L BUN 10 Creatinine 0.3 L Est GFR ( Amer) > 60 Est GFR (Non-Af Amer) > 60 Random Glucose 76 D Lactic Acid Calcium 5.3 L* D Phosphorus Magnesium Total Bilirubin 0.3 AST 11 L D ALT 20 Alkaline Phosphatase 41 Total Protein 4.1 L Albumin 2.1 L D Globulin 2.1 L Albumin/Globulin Ratio 1.0 Lipase 28 Urine Color Urine Clarity Urine pH Ur Specific [place] Urine Protein Urine Glucose (UA) Urine Ketones Urine Blood Urine Nitrate Urine Bilirubin Urine Urobilinogen Ur Leukocyte Esterase Urine WBC (Auto) Urine RBC (Auto) Ur Squamous Epith Cells Urine Bacteria Urine HCG, Qual Blood Type Antibody Screen 07/09/18 07/09/18 07/09/18 00:37 02:32 02:38 WBC RBC Hgb Hct MCV MCH MCHC RDW Plt Count MPV Neut % (Auto) Lymph % (Auto) [place] % (Auto) Eos % (Auto) Baso % (Auto) Neut # (Auto) Lymph # (Auto) [place] # (Auto) Eos # (Auto) Baso # (Auto) Neutrophils % (Manual) Band Neutrophils % Lymphocytes % (Manual) Monocytes % (Manual) Platelet Estimate Hypochromasia (manual) Poikilocytosis (manual Anisocytosis (manual) Microcytosis (manual) Target Cells Ramón Cells PT INR APTT Sodium Potassium Chloride Carbon Dioxide Anion Gap BUN Creatinine Est GFR ( Amer) Est GFR (Non-Af Amer) Random Glucose Lactic Acid 1.4 Calcium Phosphorus 2.8 Magnesium 1.5 L Total Bilirubin AST ALT Alkaline Phosphatase Total Protein Albumin Globulin Albumin/Globulin Ratio Lipase Urine Color Urine Clarity Urine pH Ur Specific [place] Urine Protein Urine Glucose (UA) Urine Ketones Urine Blood Urine Nitrate Urine Bilirubin Urine Urobilinogen Ur Leukocyte Esterase Urine WBC (Auto) Urine RBC (Auto) Ur Squamous Epith Cells Urine Bacteria Urine HCG, Qual Blood Type B POSITIVE Antibody Screen Negative Assessment & Plan - Assessment and Plan (Free Text) Assessment: 47yo F with PMHx of HTN, fibroids, PE on Eliquis presents to the ED with abdominal pain radiating to her back. Found to have possible hemorrhagic pancreatitis on CT - Afebrile, hemodynamically stable - Hgb 9.5 from 11.0 at 6PM yesterday - Abd US: right kidney stone - CT: peripancreatic stranding & fluid compatible w/ pancreatitis, also moderate hemorrhagic fluid in right anterior pararenal space & inferior to pancreatic head. Small amount hemorrhagic fluid also in low pelvis. 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 Lewis Jacob PGY-4
[2018-07-09 08:44] LABS: BASO % 0.3 % (0.0-2.0); EOS % 0.2 % (0.0-4.0); HEMOGLOBIN 9.8 g/dL (11.0-16.0); LYMPH # 1.6 K/uL (1.0-4.3); LYMPH % 19.4 % (20.0-40.0); MEAN CELL VOLUME 75.2 fL (81.0-99.0); MEAN CORPUSCULAR HEMOGLOBIN 23.6 pg (27.0-31.0); MEAN CORPUSCULAR HGB CONC 31.3 g/dL (33.0-37.0); MEAN PLATELET VOLUME 8.7 fL (7.2-11.7); MONO # 0.6 K/uL (0.0-0.8); MONO % 7.3 % (0.0-10.0); NEUT # 5.8 K/uL (1.8-7.0); NEUT % 72.8 % (50.0-75.0); RBC 4.15 Mil/uL (3.80-5.20); RED CELL DISTRIBUTION WIDTH 21.6 % (11.5-14.5)
--- NOTE | 2018-07-09 08:50 | RAD ---
Date of service: 07/09/2018 HISTORY: Pancreatitis COMPARISON: 03/01/2018 FINDINGS: LUNGS: No active pulmonary disease. PLEURA: No significant pleural effusion identified, no pneumothorax apparent. CARDIOVASCULAR: No aortic atherosclerotic calcification present. Thoracic aorta appears unfolded as before. Normal cardiac size. No pulmonary vascular congestion. OSSEOUS STRUCTURES: No significant abnormalities. VISUALIZED UPPER ABDOMEN: Normal. OTHER FINDINGS: None. IMPRESSION: No active disease.
[2018-07-09 08:58] LABS: ALB/GLOB RATIO 1.3 (1.0-2.1); ALBUMIN 3.5 g/dL (3.5-5.0); ALT/SGPT 12 U/L (9-52); AST/SGOT 23 U/L (14-36); BLOOD UREA NITROGEN 10 mg/dL (7-17); CALCIUM 8.6 mg/dl (8.6-10.4); GFR NON-AFRICAN AMERICAN > 60
[2018-07-09 09:18] LABS: HDL CHOLESTEROL 50 mg/dL (30-70)
[2018-07-09 09:29] LABS: LDL CHOLESTEROL 77 mg/dL (0-129)
[2018-07-09 09:30] LABS: CK-MB 0.37 ng/mL (0.0-3.38)
--- NOTE | 2018-07-09 09:32 | US ---
Date of service: 07/08/2018 HISTORY: LEFT FLANK/LUQ PAIN, R/O KIDNEY STONE, HYDORNEPHRO COMPARISON: Renal ultrasound 10/03/2017 TECHNIQUE: Sonographic evaluation of the abdomen. FINDINGS: LIVER: Measures cm. Normal echogenicity of the liver parenchyma. No mass. No intrahepatic bile duct dilatation. GALLBLADDER: Unremarkable. No gallstones. COMMON BILE DUCT: Measures mm. No stones. No dilatation. PANCREAS: Unremarkable as visualized. No mass. No ductal dilatation. RIGHT KIDNEY: Measures 9.9 by 4.0 x 4.7cm. Cortical echogenicity grossly normal. Although technologist's has mentioned a possible calculus in the right upper renal pole measuring 6 x 6 x 8 mm-no definite shadowing is seen here. A nonshadowing calculus here is compatible with this. This was previously noted as well on the renal ultrasound from 10/03/2017. Note is made however that there is no appreciable confirming shadowing associated with it. There is some fullness to the right intrarenal lower pole caliceal system major calices-similar this also may be some minimal fullness to the right intrarenal pelvis but appears more confined to the inferior aspect. In the lower pole anterior cortex a nonshadowing hyperechogenicity with measuring 7 x 7 x 5 mm is noted. This is unchanged with the prior 10/03/2017 renal ultrasound study. 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 It also is unchanged in appearance with the prior renal ultrasound study. LEFT KIDNEY: Measures 10.1 x 5.3 x 4.9cm. Normal echogenicity. No calculus, hydronephrosis. A large pole medial cortical to parapelvic cyst is seen measuring 5.7 x 4.6 x 5.8 cm. This is similar with the prior renal ultrasound images. SPLEEN: Normal in size and contour. No mass. AORTA: No aneurysmal dilatation. IVC: Unremarkable. OTHER FINDINGS: None. IMPRESSION: The large intra cortical slightly exophytic medial left upper renal pole cortical cyst is similar to the prior study. No significant appearing hydronephrosis suggested. The cyst measures up to 5.8 cm in size. Mild relative fullness to the right intra renal/intrapelvic major calices of the right collecting system. No more diffuse hydronephrosis seen. Probable small nonobstructing right upper renal pole calculi-previously mention on prior renal ultrasound report. No significant appearing shadowing associated with them noted. 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 Concordant results (preliminary interpretation) provided by [facility].
[2018-07-09] MEDS: Lactated Ringer's 1,000 ML IV SCH ×2 (11:08→19:41)
--- NOTE | 2018-07-09 11:10 | CP.CCUPN ---
<Robb Plaza M - Last Filed: 07/09/18 19:45> CCU Subjective - Physician Review Subjective (Free Text): Critical care consult note for Dr. Chaudhry. Patient seen and examined at bedside. Patient admitted overnight for hemorrhagic/ necrotizing pancreatitis. Patient received 2mg morphine overnight. PAtient reports minimal abdominal pain at this time. Patient denies nausea vomiting, able to pass bowel movements. Patient denies chest pain, SOB, headaches, vision changes. CCU Objective - Vital Signs / Intake & Output Vital Signs (Last 4 hours): Vital Signs Pulse Resp BP Pulse Ox 07/09/18 10:34 64 11 L 115/79 100 07/09/18 10:00 63 13 100 07/09/18 09:35 63 13 125/78 100 07/09/18 09:00 62 13 100 07/09/18 08:36 70 14 155/74 H 100 07/09/18 08:00 57 L 11 L 100 07/09/18 07:35 59 L 11 L 122/78 100 Intake and Output (Last 8hrs): Intake & Output 07/08/18 07/09/18 07/09/18 22:59 06:59 14:59 Intake Total 670 80 Balance 670 80 Weight 137 lb 137 lb Intake: Intake, IV Amount 670 80 Left Antecubital 350 Right Hand 320 80 - Physical Exam Head: Positive for: Normocephalic Extroacular Muscles: Positive for: EOMI Conjunctiva: Positive for: Normal Mouth: Positive for: Moist Mucous Membranes Respiratory/Chest: Positive for: Clear to Auscultation. Negative for: Accessory Muscle Use, Wheezes, Retracting Cardiovascular: Positive for: Normal S1, S2, Other Abdomen: Positive for: Tenderness (epigastric tenderness on palpation), Other (epigastric tenderness on palpation). Negative for: Distention Lower Extremity: Positive for: Normal Inspection. Negative for: Edema, CALF TENDERNESS Neurological: Positive for: GCS=15 Skin: Positive for: Warm, Dry Psychiatric: Positive for: Oriented x 3 - Medications Active Medications: Active Medications Generic Name Dose Route Start Last Admin Trade Name Freq PRN Reason Stop Dose Admin Lactated Ringer's 1,000 mls @ 150 mls/hr 07/09/18 10:45 07/09/18 11:08 Lactated Ringer's IV 150 mls/hr .[id number] GABY Administration Insulin Human Regular 0 unit 07/09/18 10:00 07/09/18 10:46 Novolin R SC Not Given Q6H [facility] Protocol Morphine Sulfate 2 mg 07/09/18 03:01 07/09/18 04:18 Morphine IV 2 mg Q6 PRN Administration abdominal pain - Patient Studies Lab Studies: Lab Studies 07/09/18 07/09/18 07/09/18 Range/Units 08:24 08:24 05:37 WBC 8.0 (4.8-10.8) K/uL RBC 4.15 (3.80-5.20) Mil/uL Hgb 9.8 L (11.0-16.0) g/dL Hct 31.2 L (34.0-47.0) % MCV 75.2 L (81.0-99.0) fL MCH 23.6 L (27.0-31.0) pg MCHC 31.3 L (33.0-37.0) g/dL RDW 21.6 H (11.5-14.5) % Plt Count 274 (130-400) K/uL MPV 8.7 (7.2-11.7) fL Neut % (Auto) 72.8 (50.0-75.0) % Lymph % (Auto) 19.4 L (20.0-40.0) % [place] % (Auto) 7.3 (0.0-10.0) % Eos % (Auto) 0.2 (0.0-4.0) % Baso % (Auto) 0.3 (0.0-2.0) % Neut # (Auto) 5.8 (1.8-7.0) K/uL Lymph # (Auto) 1.6 (1.0-4.3) K/uL [place] # (Auto) 0.6 (0.0-0.8) K/uL Eos # (Auto) 0.0 (0.0-0.7) K/uL Baso # (Auto) 0.0 (0.0-0.2) K/uL Neutrophils % (Manual) (50-75) % Band Neutrophils % (0-2) % Lymphocytes % (Manual) (20-40) % Monocytes % (Manual) (0-10) % Platelet Estimate (NORMAL) Hypochromasia (manual) Poikilocytosis (manual Anisocytosis (manual) Microcytosis (manual) Target Cells [place] Cells PT (9.7-12.2) SECONDS INR APTT (21-34) SECONDS Sodium 137 (132-148) mmol/L Potassium 3.9 (3.6-5.2) mmol/L Chloride 108 H (98-107) mmol/L Carbon Dioxide 20 L (22-30) mmol/L Anion Gap 13 (10-20) BUN 10 (7-17) mg/dL Creatinine 0.6 L (0.7-1.2) mg/dL Est GFR ( Amer) > 60 Est GFR (Non-Af Amer) > 60 Random Glucose 98 D (65-105) mg/dL Lactic Acid (0.7-2.1) mmol/L Calcium 8.6 (8.6-10.4) mg/dl Phosphorus 3.2 (2.5-4.5) mg/dL Magnesium 2.1 (1.6-2.3) mg/dL Total Bilirubin 0.6 (0.2-1.3) mg/dL AST 23 (14-36) U/L ALT 12 (9-52) U/L Alkaline Phosphatase 59 (38-126) U/L Total Creatine Kinase 61 (30-135) U/L CK-MB (Mass) 0.37 (0.0-3.38) ng/mL Troponin I < 0.0120 (0.00-0.120) ng/mL Total Protein 6.2 L (6.3-8.3) g/dL Albumin 3.5 D (3.5-5.0) g/dL Globulin 2.7 (2.2-3.9) gm/dL Albumin/Globulin Ratio 1.3 (1.0-2.1) Triglycerides 43 D (0-149) mg/dL Cholesterol 129 (0-199) mg/dL LDL Cholesterol Direct 77 (0-129) mg/dL HDL Cholesterol 50 (30-70) mg/dL Amylase 55 (30-110) U/L Lipase (23-300) U/L Urine Color (YELLOW) Urine Clarity (Clear) Urine pH (5.0-8.0) Ur Specific [place] (1.003-1.030) Urine Protein (NEGATIVE) mg/dL Urine Glucose (UA) (Normal) mg/dL Urine Ketones (NEGATIVE) mg/dL Urine Blood (NEGATIVE) Urine Nitrate (NEGATIVE) Urine Bilirubin (NEGATIVE) Urine Urobilinogen (0.2-1.0) mg/dL Ur Leukocyte Esterase (Negative) Kumar/uL Urine WBC (Auto) (0-5) /hpf Urine RBC (Auto) (0-3) /hpf Ur Squamous Epith Cells (0-5) /hpf Urine Bacteria (<OCC) Urine HCG, Qual (NEGATIVE) Blood Type Antibody Screen 07/09/18 07/09/18 07/09/18 Range/Units 02:38 02:32 00:37 WBC (4.8-10.8) K/uL RBC (3.80-5.20) Mil/uL Hgb (11.0-16.0) g/dL Hct (34.0-47.0) % MCV (81.0-99.0) fL MCH (27.0-31.0) pg MCHC (33.0-37.0) g/dL RDW (11.5-14.5) % Plt Count (130-400) K/uL MPV (7.2-11.7) fL Neut % (Auto) (50.0-75.0) % Lymph % (Auto) (20.0-40.0) % [place] % (Auto) (0.0-10.0) % Eos % (Auto) (0.0-4.0) % Baso % (Auto) (0.0-2.0) % Neut # (Auto) (1.8-7.0) K/uL Lymph # (Auto) (1.0-4.3) K/uL [place] # (Auto) (0.0-0.8) K/uL Eos # (Auto) (0.0-0.7) K/uL Baso # (Auto) (0.0-0.2) K/uL Neutrophils % (Manual) (50-75) % Band Neutrophils % (0-2) % Lymphocytes % (Manual) (20-40) % Monocytes % (Manual) (0-10) % Platelet Estimate (NORMAL) Hypochromasia (manual) Poikilocytosis (manual Anisocytosis (manual) Microcytosis (manual) Target Cells Ramón Cells PT (9.7-12.2) SECONDS INR APTT (21-34) SECONDS Sodium (132-148) mmol/L Potassium (3.6-5.2) mmol/L Chloride (98-107) mmol/L Carbon Dioxide (22-30) mmol/L Anion Gap (10-20) BUN (7-17) mg/dL Creatinine (0.7-1.2) mg/dL Est GFR ( Amer) Est GFR (Non-Af Amer) Random Glucose (65-105) mg/dL Lactic Acid 1.4 (0.7-2.1) mmol/L Calcium (8.6-10.4) mg/dl Phosphorus 2.8 (2.5-4.5) mg/dL Magnesium 1.5 L (1.6-2.3) mg/dL Total Bilirubin (0.2-1.3) mg/dL AST (14-36) U/L ALT (9-52) U/L Alkaline Phosphatase (38-126) U/L Total Creatine Kinase (30-135) U/L CK-MB (Mass) (0.0-3.38) ng/mL Troponin I (0.00-0.120) ng/mL Total Protein (6.3-8.3) g/dL Albumin (3.5-5.0) g/dL Globulin (2.2-3.9) gm/dL Albumin/Globulin Ratio (1.0-2.1) Triglycerides (0-149) mg/dL Cholesterol (0-199) mg/dL LDL Cholesterol Direct (0-129) mg/dL HDL Cholesterol (30-70) mg/dL Amylase (30-110) U/L Lipase (23-300) U/L Urine Color (YELLOW) Urine Clarity (Clear) Urine pH (5.0-8.0) Ur Specific [place] (1.003-1.030) Urine Protein (NEGATIVE) mg/dL Urine Glucose (UA) (Normal) mg/dL Urine Ketones (NEGATIVE) mg/dL Urine Blood (NEGATIVE) Urine Nitrate (NEGATIVE) Urine Bilirubin (NEGATIVE) Urine Urobilinogen (0.2-1.0) mg/dL Ur Leukocyte Esterase (Negative) Kumar/uL Urine WBC (Auto) (0-5) /hpf Urine RBC (Auto) (0-3) /hpf Ur Squamous Epith Cells (0-5) /hpf Urine Bacteria (<OCC) Urine HCG, Qual (NEGATIVE) Blood Type B POSITIVE Antibody Screen Negative 07/09/18 07/09/18 07/09/18 Range/Units 00:37 00:37 00:37 WBC 8.4 (4.8-10.8) K/uL RBC 4.00 (3.80-5.20) Mil/uL Hgb 9.5 L (11.0-16.0) g/dL Hct 29.8 L (34.0-47.0) % MCV 74.5 L (81.0-99.0) fL MCH 23.9 L (27.0-31.0) pg MCHC 32.0 L (33.0-37.0) g/dL RDW 20.8 H (11.5-14.5) % Plt Count 251 (130-400) K/uL MPV 8.5 (7.2-11.7) fL Neut % (Auto) 82.6 H (50.0-75.0) % Lymph % (Auto) 12.0 L (20.0-40.0) % [place] % (Auto) 5.0 (0.0-10.0) % Eos % (Auto) 0.1 (0.0-4.0) % Baso % (Auto) 0.3 (0.0-2.0) % Neut # (Auto) 6.9 (1.8-7.0) K/uL Lymph # (Auto) 1.0 (1.0-4.3) K/uL [place] # (Auto) 0.4 (0.0-0.8) K/uL Eos # (Auto) 0.0 (0.0-0.7) K/uL Baso # (Auto) 0.0 (0.0-0.2) K/uL Neutrophils % (Manual) (50-75) % Band Neutrophils % (0-2) % Lymphocytes % (Manual) (20-40) % Monocytes % (Manual) (0-10) % Platelet Estimate (NORMAL) Hypochromasia (manual) Poikilocytosis (manual Anisocytosis (manual) Microcytosis (manual) Target Cells Ram[place] Cells PT 14.2 H (9.7-12.2) SECONDS INR 1.3 APTT 28 (21-34) SECONDS Sodium 136 (132-148) mmol/L Potassium 2.4 L* D (3.6-5.2) mmol/L Chloride 114 H (98-107) mmol/L Carbon Dioxide 15 L (22-30) mmol/L Anion Gap 9 L (10-20) BUN 10 (7-17) mg/dL Creatinine 0.3 L (0.7-1.2) mg/dL Est GFR ( Amer) > 60 Est GFR (Non-Af Amer) > 60 Random Glucose 76 D (65-105) mg/dL Lactic Acid (0.7-2.1) mmol/L Calcium 5.3 L* D (8.6-10.4) mg/dl Phosphorus (2.5-4.5) mg/dL Magnesium (1.6-2.3) mg/dL Total Bilirubin 0.3 (0.2-1.3) mg/dL AST 11 L D (14-36) U/L ALT 20 (9-52) U/L Alkaline Phosphatase 41 (38-126) U/L Total Creatine Kinase (30-135) U/L CK-MB (Mass) (0.0-3.38) ng/mL Troponin I (0.00-0.120) ng/mL Total Protein 4.1 L (6.3-8.3) g/dL Albumin 2.1 L D (3.5-5.0) g/dL Globulin 2.1 L (2.2-3.9) gm/dL Albumin/Globulin Ratio 1.0 (1.0-2.1) Triglycerides (0-149) mg/dL Cholesterol (0-199) mg/dL LDL Cholesterol Direct (0-129) mg/dL HDL Cholesterol (30-70) mg/dL Amylase (30-110) U/L Lipase 28 (23-300) U/L Urine Color (YELLOW) Urine Clarity (Clear) Urine pH (5.0-8.0) Ur Specific [place] (1.003-1.030) Urine Protein (NEGATIVE) mg/dL Urine Glucose (UA) (Normal) mg/dL Urine Ketones (NEGATIVE) mg/dL Urine Blood (NEGATIVE) Urine Nitrate (NEGATIVE) Urine Bilirubin (NEGATIVE) Urine Urobilinogen (0.2-1.0) mg/dL Ur Leukocyte Esterase (Negative) Kumar/uL Urine WBC (Auto) (0-5) /hpf Urine RBC (Auto) (0-3) /hpf Ur Squamous Epith Cells (0-5) /hpf Urine Bacteria (<OCC) Urine HCG, Qual (NEGATIVE) Blood Type Antibody Screen 07/08/18 07/08/18 07/08/18 Range/Units 18:27 18:17 18:16 WBC 9.3 D (4.8-10.8) K/uL RBC 4.67 (3.80-5.20) Mil/uL Hgb 11.0 D (11.0-16.0) g/dL Hct 35.0 (34.0-47.0) % MCV 75.0 L D (81.0-99.0) fL MCH 23.6 L (27.0-31.0) pg MCHC 31.5 L (33.0-37.0) g/dL RDW 21.5 H (11.5-14.5) % Plt Count 281 D (130-400) K/uL MPV 8.3 (7.2-11.7) fL Neut % (Auto) 86.9 H (50.0-75.0) % Lymph % (Auto) 9.3 L (20.0-40.0) % [place] % (Auto) 3.3 (0.0-10.0) % Eos % (Auto) 0.1 (0.0-4.0) % Baso % (Auto) 0.4 (0.0-2.0) % Neut # (Auto) 8.0 H (1.8-7.0) K/uL Lymph # (Auto) 0.9 L (1.0-4.3) K/uL [place] # (Auto) 0.3 (0.0-0.8) K/uL Eos # (Auto) 0.0 (0.0-0.7) K/uL Baso # (Auto) 0.0 (0.0-0.2) K/uL Neutrophils % (Manual) 89 H (50-75) % Band Neutrophils % 1 (0-2) % Lymphocytes % (Manual) 7 L (20-40) % Monocytes % (Manual) 3 (0-10) % Platelet Estimate Normal (NORMAL) Hypochromasia (manual) Moderate Poikilocytosis (manual Slight Anisocytosis (manual) Slight Microcytosis (manual) Slight Target Cells Slight Ram[place] Cells Slight PT (9.7-12.2) SECONDS INR APTT (21-34) SECONDS Sodium 135 (132-148) mmol/L Potassium 3.8 (3.6-5.2) mmol/L Chloride 100 (98-107) mmol/L Carbon Dioxide 25 (22-30) mmol/L Anion Gap 14 (10-20) BUN 17 (7-17) mg/dL Creatinine 0.6 L (0.7-1.2) mg/dL Est GFR ( Amer) > 60 Est GFR (Non-Af Amer) > 60 Random Glucose 104 D (65-105) mg/dL Lactic Acid (0.7-2.1) mmol/L Calcium 8.8 (8.6-10.4) mg/dl Phosphorus (2.5-4.5) mg/dL Magnesium (1.6-2.3) mg/dL Total Bilirubin 0.4 (0.2-1.3) mg/dL AST 22 (14-36) U/L ALT 20 (9-52) U/L Alkaline Phosphatase 69 (38-126) U/L Total Creatine Kinase (30-135) U/L CK-MB (Mass) (0.0-3.38) ng/mL Troponin I (0.00-0.120) ng/mL Total Protein 7.1 (6.3-8.3) g/dL Albumin 4.2 (3.5-5.0) g/dL Globulin 2.9 (2.2-3.9) gm/dL Albumin/Globulin Ratio 1.5 (1.0-2.1) Triglycerides (0-149) mg/dL Cholesterol (0-199) mg/dL LDL Cholesterol Direct (0-129) mg/dL HDL Cholesterol (30-70) mg/dL Amylase (30-110) U/L Lipase 50 (23-300) U/L Urine Color Yellow (YELLOW) Urine Clarity Hazy (Clear) Urine pH 6.0 (5.0-8.0) Ur Specific [place] 1.024 (1.003-1.030) Urine Protein 1+ H (NEGATIVE) mg/dL Urine Glucose (UA) Normal (Normal) mg/dL Urine Ketones Trace (NEGATIVE) mg/dL Urine Blood 3+ H (NEGATIVE) Urine Nitrate Negative (NEGATIVE) Urine Bilirubin Negative (NEGATIVE) Urine Urobilinogen Normal (0.2-1.0) mg/dL Ur Leukocyte Esterase Neg (Negative) Kumar/uL Urine WBC (Auto) 2 (0-5) /hpf Urine RBC (Auto) 273 H (0-3) /hpf Ur Squamous Epith Cells 1 (0-5) /hpf Urine Bacteria Rare (<OCC) Urine HCG, Qual Negative (NEGATIVE) Blood Type Antibody Screen Laboratory Results - last 24 hr 07/08/18 07/08/18 07/08/18 18:16 18:17 18:27 WBC 9.3 D RBC 4.67 Hgb 11.0 D Hct 35.0 MCV 75.0 L D MCH 23.6 L MCHC 31.5 L RDW 21.5 H Plt Count 281 D MPV 8.3 Neut % (Auto) 86.9 H Lymph % (Auto) 9.3 L [place] % (Auto) 3.3 Eos % (Auto) 0.1 Baso % (Auto) 0.4 Neut # (Auto) 8.0 H Lymph # (Auto) 0.9 L [place] # (Auto) 0.3 Eos # (Auto) 0.0 Baso # (Auto) 0.0 Neutrophils % (Manual) 89 H Band Neutrophils % 1 Lymphocytes % (Manual) 7 L Monocytes % (Manual) 3 Platelet Estimate Normal Hypochromasia (manual) Moderate Poikilocytosis (manual Slight Anisocytosis (manual) Slight Microcytosis (manual) Slight Target Cells Slight Ram[place] Cells Slight PT INR APTT Sodium 135 Potassium 3.8 Chloride 100 Carbon Dioxide 25 Anion Gap 14 BUN 17 Creatinine 0.6 L Est GFR ( Amer) > 60 Est GFR (Non-Af Amer) > 60 Random Glucose 104 D Lactic Acid Calcium 8.8 Phosphorus Magnesium Total Bilirubin 0.4 AST 22 ALT 20 Alkaline Phosphatase 69 Total Creatine Kinase CK-MB (Mass) Troponin I Total Protein 7.1 Albumin 4.2 Globulin 2.9 Albumin/Globulin Ratio 1.5 Triglycerides Cholesterol LDL Cholesterol Direct HDL Cholesterol Amylase Lipase 50 Urine Color Yellow Urine Clarity Hazy Urine pH 6.0 Ur Specific [place] 1.024 Urine Protein 1+ H Urine Glucose (UA) Normal Urine Ketones Trace Urine Blood 3+ H Urine Nitrate Negative Urine Bilirubin Negative Urine Urobilinogen Normal Ur Leukocyte Esterase Neg Urine WBC (Auto) 2 Urine RBC (Auto) 273 H Ur Squamous Epith Cells 1 Urine Bacteria Rare Urine HCG, Qual Negative Blood Type Antibody Screen 07/09/18 07/09/18 07/09/18 00:37 00:37 00:37 WBC 8.4 RBC 4.00 Hgb 9.5 L Hct 29.8 L MCV 74.5 L MCH 23.9 L MCHC 32.0 L RDW 20.8 H Plt Count 251 MPV 8.5 Neut % (Auto) 82.6 H Lymph % (Auto) 12.0 L [place] % (Auto) 5.0 Eos % (Auto) 0.1 Baso % (Auto) 0.3 Neut # (Auto) 6.9 Lymph # (Auto) 1.0 [place] # (Auto) 0.4 Eos # (Auto) 0.0 Baso # (Auto) 0.0 Neutrophils % (Manual) Band Neutrophils % Lymphocytes % (Manual) Monocytes % (Manual) Platelet Estimate Hypochromasia (manual) Poikilocytosis (manual Anisocytosis (manual) Microcytosis (manual) Target Cells [place] Cells PT 14.2 H INR 1.3 APTT 28 Sodium 136 Potassium 2.4 L* D Chloride 114 H Carbon Dioxide 15 L Anion Gap 9 L BUN 10 Creatinine 0.3 L Est GFR ( Amer) > 60 Est GFR (Non-Af Amer) > 60 Random Glucose 76 D Lactic Acid Calcium 5.3 L* D Phosphorus Magnesium Total Bilirubin 0.3 AST 11 L D ALT 20 Alkaline Phosphatase 41 Total Creatine Kinase CK-MB (Mass) Troponin I Total Protein 4.1 L Albumin 2.1 L D Globulin 2.1 L Albumin/Globulin Ratio 1.0 Triglycerides Cholesterol LDL Cholesterol Direct HDL Cholesterol Amylase Lipase 28 Urine Color Urine Clarity Urine pH Ur Specific [place] Urine Protein Urine Glucose (UA) Urine Ketones Urine Blood Urine Nitrate Urine Bilirubin Urine Urobilinogen Ur Leukocyte Esterase Urine WBC (Auto) Urine RBC (Auto) Ur Squamous Epith Cells Urine Bacteria Urine HCG, Qual Blood Type Antibody Screen 07/09/18 07/09/18 07/09/18 00:37 02:32 02:38 WBC RBC Hgb Hct MCV MCH MCHC RDW Plt Count MPV Neut % (Auto) Lymph % (Auto) [place] % (Auto) Eos % (Auto) Baso % (Auto) Neut # (Auto) Lymph # (Auto) [place] # (Auto) Eos # (Auto) Baso # (Auto) Neutrophils % (Manual) Band Neutrophils % Lymphocytes % (Manual) Monocytes % (Manual) Platelet Estimate Hypochromasia (manual) Poikilocytosis (manual Anisocytosis (manual) Microcytosis (manual) Target Cells [place] Cells PT INR APTT Sodium Potassium Chloride Carbon Dioxide Anion Gap BUN Creatinine Est GFR ( Amer) Est GFR (Non-Af Amer) Random Glucose Lactic Acid 1.4 Calcium Phosphorus 2.8 Magnesium 1.5 L Total Bilirubin AST ALT Alkaline Phosphatase Total Creatine Kinase CK-MB (Mass) Troponin I Total Protein Albumin Globulin Albumin/Globulin Ratio Triglycerides Cholesterol LDL Cholesterol Direct HDL Cholesterol Amylase Lipase Urine Color Urine Clarity Urine pH Ur Specific [place] Urine Protein Urine Glucose (UA) Urine Ketones Urine Blood Urine Nitrate Urine Bilirubin Urine Urobilinogen Ur Leukocyte Esterase Urine WBC (Auto) Urine RBC (Auto) Ur Squamous Epith Cells Urine Bacteria Urine HCG, Qual Blood Type B POSITIVE Antibody Screen Negative 07/09/18 07/09/18 07/09/18 05:37 08:24 08:24 WBC 8.0 RBC 4.15 Hgb 9.8 L Hct 31.2 L MCV 75.2 L MCH 23.6 L MCHC 31.3 L RDW 21.6 H Plt Count 274 MPV 8.7 Neut % (Auto) 72.8 Lymph % (Auto) 19.4 L [place] % (Auto) 7.3 Eos % (Auto) 0.2 Baso % (Auto) 0.3 Neut # (Auto) 5.8 Lymph # (Auto) 1.6 [place] # (Auto) 0.6 Eos # (Auto) 0.0 Baso # (Auto) 0.0 Neutrophils % (Manual) Band Neutrophils % Lymphocytes % (Manual) Monocytes % (Manual) Platelet Estimate Hypochromasia (manual) Poikilocytosis (manual Anisocytosis (manual) Microcytosis (manual) Target Cells [place] Cells PT INR APTT Sodium 137 Potassium 3.9 Chloride 108 H Carbon Dioxide 20 L Anion Gap 13 BUN 10 Creatinine 0.6 L Est GFR ( Amer) > 60 Est GFR (Non-Af Amer) > 60 Random Glucose 98 D Lactic Acid Calcium 8.6 Phosphorus 3.2 Magnesium 2.1 Total Bilirubin 0.6 AST 23 ALT 12 Alkaline Phosphatase 59 Total Creatine Kinase 61 CK-MB (Mass) 0.37 Troponin I < 0.0120 Total Protein 6.2 L Albumin 3.5 D Globulin 2.7 Albumin/Globulin Ratio 1.3 Triglycerides 43 D Cholesterol 129 LDL Cholesterol Direct 77 HDL Cholesterol 50 Amylase 55 Lipase Urine Color Urine Clarity Urine pH Ur Specific [place] Urine Protein Urine Glucose (UA) Urine Ketones Urine Blood Urine Nitrate Urine Bilirubin Urine Urobilinogen Ur Leukocyte Esterase Urine WBC (Auto) Urine RBC (Auto) Ur Squamous Epith Cells Urine Bacteria Urine HCG, Qual Blood Type Antibody Screen Radiology Impressions: Radiology Impressions Abdomen Ultrasound 07/08/18 18:46 IMPRESSION: The large intra cortical slightly exophytic medial left upper renal pole cortical cyst is similar to the prior study. No significant appearing hydronephrosis suggested. The cyst measures up to 5.8 cm in size. Mild relative fullness to the right intra renal/intrapelvic major calices of the right collecting system. No more diffuse hydronephrosis seen. Probable small nonobstructing right upper renal pole calculi-previously mention on prior renal ultrasound report. No significant appearing shadowing associated with them noted. 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 Concordant results (preliminary interpretation) provided by [facility]. Chest X-Ray 07/09/18 02:49 IMPRESSION: No active disease. EKG/Cardiology Studies: Cardiology / EKG Studies 07/09/18 08:30 EKG [ELECTROCARDIOGRAM] Stat Comment: Mode Of Transportation: Reason For Exam: electrolyte imbalances Review of Systems - Constitutional Constitutional: absent: Chills, Sweats, Weakness - EENT Eyes: UNREMARKABLE Ears: UNREMARKABLE Nose/Mouth/Throat: UNREMARKABLE - Breasts Breasts: UNREMARKABLE - Respiratory Respiratory: UNREMARKABLE - Gastrointestinal Gastrointestinal: UNREMARKABLE - Musculoskeletal Musculoskeletal: UNREMARKABLE - Integumentary Integumentary: UNREMARKABLE - Neurological Neurological: UNREMARKABLE - Psychiatric Psychiatric: UNREMARKABLE - Endocrine Endocrine: UNREMARKABLE - Hematologic/Lymphatic Hematologic: UNREMARKABLE Critical Care Progress Note - Extremities/Vascular Does the Patient have a Central Venous Catheter?: No - Prophylaxis DVT Prophylaxis DVT: SCDs, Not Indicated - Nutrition Nutrition: Nutrition Category Date Time Status NPO Diet [DIET] Diets 07/09/18 Breakfast Active Assessment/Plan - Assessment and Plan (Free Text) Assessment: 47 F w/ hx of PE, HTN presented w/ abdominal pain, found to have hemmorhagic vs necrotizing pancreatitis Plan: Neuro - A&O x3 Cardio - vitals stable - BP wnl - hold home medicine lisinopril Pulm - no active disease GI - NPO - CT abd/pelvis (07/08/18): hemorhaggic / necrotizing pancreatitis, partial filling defect of SMA - U/S abd/pelvis (07/08/18): renal pole cyst - LR 150ml/hr - morphine 2mg Q6H PRN pain - Hold eliquis - urinating well Renal - BUN/Cr: 10/0.6 - CMP @ [facility] showing several electrolyte abnormalities; repeat CMP before replenishment normal - believe CMP @ [facility] maybe lab error and will repeat in PM labs Endo - accuchecks Q6H - ISS Q6H Heme - H/H 9.5/30.5 - stable, will monitor ID - WBC WNL - afebrile - no abx warranted at this time PPx <Peter Chaudhry M - Last Filed: 07/14/18 07:53> CCU Objective - Patient Studies Lab Studies: Microbiology Studies 07/09/18 03:38 Blood Culture - Final Blood-Venous NO GROWTH AFTER 5 DAYS Gram Stain - Final TEST NOT PERFORMED 07/09/18 03:38 Blood Culture - Final Blood-Venous NO GROWTH AFTER 5 DAYS Gram Stain - Final TEST NOT PERFORMED Radiology Impressions: Radiology Impressions Duplex Scan Lower Extremity Artery 07/10/18 11:25 IMPRESSION: Right: No evidence of deep or superficial vein thrombosis of the right lower extremity. Normal valve function noted of the right side. Left: No evidence of deep or superficial vein thrombosis of the left lower extremity. Normal valve function noted of the left side. Critical Care Progress Note - Nutrition Nutrition: Nutrition Category Date Time Status Altered GI/Hepatic Diet [DIET] Diets 07/11/18 Lunch Active Attending/Attestation - Attestation I have personally seen and examined this patient.: Yes I have fully participated in the care of the patient.: Yes I have reviewed all pertinent clinical information: Yes Notes (Text): Today: , July 09, 2018 The patient was Seen/interviewed and examined by me at the bedside during ICU round, Medical records reviewed and Management issues were discussed and formulated with the house staff. Events reviewed I have reviewed all the relevant clinical, laboratory, hemodynamic, radiographic data and medications Pain issues, skin care, head of the bed elevation, glycemic control were addressed. I concur with resident's assessment and plan of care as transcribed in Dr. Plaza note.
--- NOTE | 2018-07-09 11:33 | CP.PCM.CON ---
<Gabriel Almanza - Last Filed: 07/09/18 13:09> History of Present Illness - History of Present Illness History of Present Illness: PGY6 GI Fellow Consult Note Patient is a 47yo female with PMHx significant for provoked B/L PE in February 2018 currently on Eliquis (for total 6 months), HTN who presented to the ED with abdominal pain. 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 Symptoms were mostly bloating and abdominal distention, not relieved by passing flatus and remained intermittent for most of the day. Symptoms intensified later in the day and she developed nausea, thus she came to the ED for evaluation. Her symptoms did not completely resolve with IV analgesic medications. U/S performed in the ED revealed renal cysts and a small angiomyolipoma. CT performed shows pancreatitis with a possible hemorrhagic component inferiorly. Patient has been receiving IV LR and was admitted to the ICU. At this time, she admits to ongoing epigastric pain which is improved with Morphine administrations. She denies any recent EtOH use, history of gallstones, trauma or new medications. No episodes of vomiting, fever, chills, weight loss or sick contacts. Patient admits that she started her menstrual period yesterday. 12 system ROS performed and otherwise negative PMHx: See HPI PSHx: Left salpingectomy 2/2 ectopic FHx: Mother - DM Social: Denies tobacco, EtOH or illicit drug use Endo: No prior endoscopic evaluations Past Patient History - Infectious Disease Hx of Infectious Diseases: None - Tetanus Immunizations Tetanus Immunization: Unknown - Past Medical History & Family History Past Medical History?: Yes - Past Social History Smoking Status: Never Smoked - CARDIAC Hx Cardiac Disorders: Yes Hx Hypertension: Yes - PULMONARY Hx Respiratory Disorders: Yes Hx Pulmonary Embolism: Yes - NEUROLOGICAL Hx Neurological Disorder: No - HEENT Hx HEENT Problems: Yes Other/Comment: WEARS GLASSES FOR READING - RENAL Hx Chronic Kidney Disease: No - ENDOCRINE/METABOLIC Hx Endocrine Disorders: No - HEMATOLOGICAL/ONCOLOGICAL Hx Blood Disorders: Yes Hx Anemia: Yes (on iron) - INTEGUMENTARY Hx Dermatological Problems: No - MUSCULOSKELETAL/RHEUMATOLOGICAL Hx Musculoskeletal Disorders: No Hx Falls: No - GASTROINTESTINAL Hx Gastrointestinal Disorders: No - GENITOURINARY/GYNECOLOGICAL Hx Genitourinary Disorders: Yes Hx Reproductive Disorders: Yes (uTERINE FIBROIDS) Other/Comment: ectopic - PSYCHIATRIC Hx Psychophysiologic Disorder: No - SURGICAL HISTORY Hx Surgeries: Yes Other/Comment: ectopic - ANESTHESIA Hx Anesthesia: Yes Hx Anesthesia Reactions: No Hx Malignant Hyperthermia: No Has any member of the family had a problem w/ anesthesia?: No Meds Home Medications: Home Medication List Medication Instructions Recorded Confirmed Type Ondansetron ODT [Zofran ODT] 1 odt PO BID PRN #6 odt 07/08/18 Rx traMADol/Acetaminophen [Ultracet 1 tab PO Q6 #14 tab 07/08/18 Rx 325 MG-37.5 MG] Allergies/Adverse Reactions: Allergies Allergy/AdvReac Type Severity Reaction Status Date / Time No Known Allergies Allergy Verified 07/08/18 17:36 - Medications Medications: Current Medications Lactated Ringer's (Lactated Ringer's) 1,000 mls @ 150 mls/hr IV .Q6H40M REPLACED BY [facility] Last Admin: 07/09/18 11:08 Dose: 150 mls/hr Insulin Human Regular (Novolin R) 0 unit SC Q6H REPLACED BY [facility]; Protocol Last Admin: 07/09/18 10:46 Dose: Not Given Morphine Sulfate (Morphine) 2 mg IV Q6 PRN PRN Reason: abdominal pain Last Admin: 07/09/18 04:18 Dose: 2 mg Physical Exam - Constitutional Appears: Non-toxic, No Acute Distress - Eye Exam Eye Exam: EOMI, PERRL - ENT Exam ENT Exam: Mucous Membranes Moist - Respiratory Exam Respiratory Exam: Clear to Auscultation Bilateral. absent: Rales, Rhonchi, Wheezes - Cardiovascular Exam Cardiovascular Exam: RRR, +S1, +S2 - GI/Abdominal Exam GI & Abdominal Exam: Normal Bowel Sounds, Soft, Tenderness (epigastric). absent: Distended, Firm, Guarding, Mass, Organomegaly, Rebound, Rigid - Extremities Exam Extremities exam: Positive for: normal inspection. Negative for: pedal edema - Neurological Exam Neurological exam: Alert, Oriented x3 - Psychiatric Exam Psychiatric exam: Normal Affect, Normal Mood - Skin Skin Exam: Dry, Warm Results - Vital Signs Recent Vital Signs: Last Vital Signs Temp 97.9 F 07/09/18 04:00 Pulse 64 07/09/18 10:34 Resp 11 L 07/09/18 10:34 BP 115/79 07/09/18 10:34 Pulse Ox 100 07/09/18 10:34 - Labs Result Diagrams: 07/09/18 08:24 07/09/18 08:24 Labs: Laboratory Results - last 24 hr 07/08/18 07/08/18 07/08/18 18:16 18:17 18:27 WBC 9.3 D RBC 4.67 Hgb 11.0 D Hct 35.0 MCV 75.0 L D MCH 23.6 L MCHC 31.5 L RDW 21.5 H Plt Count 281 D MPV 8.3 Neut % (Auto) 86.9 H Lymph % (Auto) 9.3 L Pender % (Auto) 3.3 Eos % (Auto) 0.1 Baso % (Auto) 0.4 Neut # (Auto) 8.0 H Lymph # (Auto) 0.9 L Pender # (Auto) 0.3 Eos # (Auto) 0.0 Baso # (Auto) 0.0 Neutrophils % (Manual) 89 H Band Neutrophils % 1 Lymphocytes % (Manual) 7 L Monocytes % (Manual) 3 Platelet Estimate Normal Hypochromasia (manual) Moderate Poikilocytosis (manual Slight Anisocytosis (manual) Slight Microcytosis (manual) Slight Target Cells Slight Ramón Cells Slight PT INR APTT Sodium 135 Potassium 3.8 Chloride 100 Carbon Dioxide 25 Anion Gap 14 BUN 17 Creatinine 0.6 L Est GFR ( Amer) > 60 Est GFR (Non-Af Amer) > 60 POC Glucose (mg/dL) Random Glucose 104 D Lactic Acid Calcium 8.8 Phosphorus Magnesium Total Bilirubin 0.4 AST 22 ALT 20 Alkaline Phosphatase 69 Total Creatine Kinase CK-MB (Mass) Troponin I Total Protein 7.1 Albumin 4.2 Globulin 2.9 Albumin/Globulin Ratio 1.5 Triglycerides Cholesterol LDL Cholesterol Direct HDL Cholesterol Amylase Lipase 50 Urine Color Yellow Urine Clarity Hazy Urine pH 6.0 Ur Specific Blanchard 1.024 Urine Protein 1+ H Urine Glucose (UA) Normal Urine Ketones Trace Urine Blood 3+ H Urine Nitrate Negative Urine Bilirubin Negative Urine Urobilinogen Normal Ur Leukocyte Esterase Neg Urine WBC (Auto) 2 Urine RBC (Auto) 273 H Ur Squamous Epith Cells 1 Urine Bacteria Rare Urine HCG, Qual Negative Blood Type Antibody Screen 07/09/18 07/09/18 07/09/18 00:37 00:37 00:37 WBC 8.4 RBC 4.00 Hgb 9.5 L Hct 29.8 L MCV 74.5 L MCH 23.9 L MCHC 32.0 L RDW 20.8 H Plt Count 251 MPV 8.5 Neut % (Auto) 82.6 H Lymph % (Auto) 12.0 L Pender % (Auto) 5.0 Eos % (Auto) 0.1 Baso % (Auto) 0.3 Neut # (Auto) 6.9 Lymph # (Auto) 1.0 Pender # (Auto) 0.4 Eos # (Auto) 0.0 Baso # (Auto) 0.0 Neutrophils % (Manual) Band Neutrophils % Lymphocytes % (Manual) Monocytes % (Manual) Platelet Estimate Hypochromasia (manual) Poikilocytosis (manual Anisocytosis (manual) Microcytosis (manual) Target Cells Marathon Cells PT 14.2 H INR 1.3 APTT 28 Sodium 136 Potassium 2.4 L* D Chloride 114 H Carbon Dioxide 15 L Anion Gap 9 L BUN 10 Creatinine 0.3 L Est GFR ( Amer) > 60 Est GFR (Non-Af Amer) > 60 POC Glucose (mg/dL) Random Glucose 76 D Lactic Acid Calcium 5.3 L* D Phosphorus Magnesium Total Bilirubin 0.3 AST 11 L D ALT 20 Alkaline Phosphatase 41 Total Creatine Kinase CK-MB (Mass) Troponin I Total Protein 4.1 L Albumin 2.1 L D Globulin 2.1 L Albumin/Globulin Ratio 1.0 Triglycerides Cholesterol LDL Cholesterol Direct HDL Cholesterol Amylase Lipase 28 Urine Color Urine Clarity Urine pH Ur Specific Blanchard Urine Protein Urine Glucose (UA) Urine Ketones Urine Blood Urine Nitrate Urine Bilirubin Urine Urobilinogen Ur Leukocyte Esterase Urine WBC (Auto) Urine RBC (Auto) Ur Squamous Epith Cells Urine Bacteria Urine HCG, Qual Blood Type Antibody Screen 07/09/18 07/09/18 07/09/18 00:37 02:32 02:38 WBC RBC Hgb Hct MCV MCH MCHC RDW Plt Count MPV Neut % (Auto) Lymph % (Auto) Pender % (Auto) Eos % (Auto) Baso % (Auto) Neut # (Auto) Lymph # (Auto) Pender # (Auto) Eos # (Auto) Baso # (Auto) Neutrophils % (Manual) Band Neutrophils % Lymphocytes % (Manual) Monocytes % (Manual) Platelet Estimate Hypochromasia (manual) Poikilocytosis (manual Anisocytosis (manual) Microcytosis (manual) Target Cells Marathon Cells PT INR APTT Sodium Potassium Chloride Carbon Dioxide Anion Gap BUN Creatinine Est GFR ( Amer) Est GFR (Non-Af Amer) POC Glucose (mg/dL) Random Glucose Lactic Acid 1.4 Calcium Phosphorus 2.8 Magnesium 1.5 L Total Bilirubin AST ALT Alkaline Phosphatase Total Creatine Kinase CK-MB (Mass) Troponin I Total Protein Albumin Globulin Albumin/Globulin Ratio Triglycerides Cholesterol LDL Cholesterol Direct HDL Cholesterol Amylase Lipase Urine Color Urine Clarity Urine pH Ur Specific Blanchard Urine Protein Urine Glucose (UA) Urine Ketones Urine Blood Urine Nitrate Urine Bilirubin Urine Urobilinogen Ur Leukocyte Esterase Urine WBC (Auto) Urine RBC (Auto) Ur Squamous Epith Cells Urine Bacteria Urine HCG, Qual Blood Type B POSITIVE Antibody Screen Negative 07/09/18 07/09/18 07/09/18 05:37 08:24 08:24 WBC 8.0 RBC 4.15 Hgb 9.8 L Hct 31.2 L MCV 75.2 L MCH 23.6 L MCHC 31.3 L RDW 21.6 H Plt Count 274 MPV 8.7 Neut % (Auto) 72.8 Lymph % (Auto) 19.4 L Pender % (Auto) 7.3 Eos % (Auto) 0.2 Baso % (Auto) 0.3 Neut # (Auto) 5.8 Lymph # (Auto) 1.6 Pender # (Auto) 0.6 Eos # (Auto) 0.0 Baso # (Auto) 0.0 Neutrophils % (Manual) Band Neutrophils % Lymphocytes % (Manual) Monocytes % (Manual) Platelet Estimate Hypochromasia (manual) Poikilocytosis (manual Anisocytosis (manual) Microcytosis (manual) Target Cells Marathon Cells PT INR APTT Sodium 137 Potassium 3.9 Chloride 108 H Carbon Dioxide 20 L Anion Gap 13 BUN 10 Creatinine 0.6 L Est GFR ( Amer) > 60 Est GFR (Non-Af Amer) > 60 POC Glucose (mg/dL) Random Glucose 98 D Lactic Acid Calcium 8.6 Phosphorus 3.2 Magnesium 2.1 Total Bilirubin 0.6 AST 23 ALT 12 Alkaline Phosphatase 59 Total Creatine Kinase 61 CK-MB (Mass) 0.37 Troponin I < 0.0120 Total Protein 6.2 L Albumin 3.5 D Globulin 2.7 Albumin/Globulin Ratio 1.3 Triglycerides 43 D Cholesterol 129 LDL Cholesterol Direct 77 HDL Cholesterol 50 Amylase 55 Lipase Urine Color Urine Clarity Urine pH Ur Specific Blanchard Urine Protein Urine Glucose (UA) Urine Ketones Urine Blood Urine Nitrate Urine Bilirubin Urine Urobilinogen Ur Leukocyte Esterase Urine WBC (Auto) Urine RBC (Auto) Ur Squamous Epith Cells Urine Bacteria Urine HCG, Qual Blood Type Antibody Screen 07/09/18 11:20 WBC RBC Hgb Hct MCV MCH MCHC RDW Plt Count MPV Neut % (Auto) Lymph % (Auto) Pender % (Auto) Eos % (Auto) Baso % (Auto) Neut # (Auto) Lymph # (Auto) Pender # (Auto) Eos # (Auto) Baso # (Auto) Neutrophils % (Manual) Band Neutrophils % Lymphocytes % (Manual) Monocytes % (Manual) Platelet Estimate Hypochromasia (manual) Poikilocytosis (manual Anisocytosis (manual) Microcytosis (manual) Target Cells Ramón Cells PT INR APTT Sodium Potassium Chloride Carbon Dioxide Anion Gap BUN Creatinine Est GFR ( Amer) Est GFR (Non-Af Amer) POC Glucose (mg/dL) 99 Random Glucose Lactic Acid Calcium Phosphorus Magnesium Total Bilirubin AST ALT Alkaline Phosphatase Total Creatine Kinase CK-MB (Mass) Troponin I Total Protein Albumin Globulin Albumin/Globulin Ratio Triglycerides Cholesterol LDL Cholesterol Direct HDL Cholesterol Amylase Lipase Urine Color Urine Clarity Urine pH Ur Specific Blanchard Urine Protein Urine Glucose (UA) Urine Ketones Urine Blood Urine Nitrate Urine Bilirubin Urine Urobilinogen Ur Leukocyte Esterase Urine WBC (Auto) Urine RBC (Auto) Ur Squamous Epith Cells Urine Bacteria Urine HCG, Qual Blood Type Antibody Screen Assessment & Plan - Assessment and Plan (Free Text) Assessment: Patient is a 47yo female with PMHx significant for provoked B/L PE in March 14 currently on Eliquis (for total 6 months), HTN who presented to the ED with abdominal pain -Acute pancreatitis -Abnormal CT imaging of the abdomen - hemorrhagic fluid collection -Chronic microcytic anemia -Prior B/L PE on Eliquis -HTN Plan: -Mild pancreatitis with low mortality risk per BISAP/HAPS scoring -Unclear etiology of acute pancreatitis in the absence of obvious gallstone disease, EtOH/tobacco use and normal lipid panel -CT reviewed -Question of SMV thrombus noted on CT scan - outside of pain, no evidence to support mesenteric ischemia at this time -Other etiologies for intraabdominal hemorrhage should be explored including known angiomyolipoma on right kidney, possible endometriosis (given onset with menstruation) -Recommend CTA -HGB at baseline for patient looking at prior CBCs - 11 may be spurious result -Continue supportive care with analgesia, IV LR and monitor HCT/BUN -Advance diet to clear liquids -If symptoms worsen, consider dedicated pancreatic protocol CT or MRI to better characterize area -Appreciate surgical consultation -Patient warrants EGD/Colonoscopy when acute issues resolve - Date & Time Date: 07/09/18 Time: 11:25 <Nitin Ta - Last Filed: 07/09/18 13:57> Meds - Medications Medications: Current Medications Lactated Ringer's (Lactated Ringer's) 1,000 mls @ 150 mls/hr IV .Q6H40M REPLACED BY [facility] Last Admin: 07/09/18 11:08 Dose: 150 mls/hr Insulin Human Regular (Novolin R) 0 unit SC Q6H REPLACED BY [facility]; Protocol Last Admin: 07/09/18 10:46 Dose: Not Given Morphine Sulfate (Morphine) 2 mg IV Q6 PRN PRN Reason: abdominal pain Last Admin: 07/09/18 04:18 Dose: 2 mg Results - Vital Signs Recent Vital Signs: Last Vital Signs Temp 97.9 F 07/09/18 04:00 Pulse 64 07/09/18 10:34 Resp 11 L 07/09/18 10:34 BP 115/79 07/09/18 10:34 Pulse Ox 100 07/09/18 10:34 - Labs Result Diagrams: 07/09/18 08:24 07/09/18 08:24 Labs: Laboratory Results - last 24 hr 07/08/18 07/08/18 07/08/18 18:16 18:17 18:27 WBC 9.3 D RBC 4.67 Hgb 11.0 D Hct 35.0 MCV 75.0 L D MCH 23.6 L MCHC 31.5 L RDW 21.5 H Plt Count 281 D MPV 8.3 Neut % (Auto) 86.9 H Lymph % (Auto) 9.3 L Pender % (Auto) 3.3 Eos % (Auto) 0.1 Baso % (Auto) 0.4 Neut # (Auto) 8.0 H Lymph # (Auto) 0.9 L Pender # (Auto) 0.3 Eos # (Auto) 0.0 Baso # (Auto) 0.0 Neutrophils % (Manual) 89 H Band Neutrophils % 1 Lymphocytes % (Manual) 7 L Monocytes % (Manual) 3 Platelet Estimate Normal Hypochromasia (manual) Moderate Poikilocytosis (manual Slight Anisocytosis (manual) Slight Microcytosis (manual) Slight Target Cells Slight Marathon Cells Slight PT INR APTT Sodium 135 Potassium 3.8 Chloride 100 Carbon Dioxide 25 Anion Gap 14 BUN 17 Creatinine 0.6 L Est GFR ( Amer) > 60 Est GFR (Non-Af Amer) > 60 POC Glucose (mg/dL) Random Glucose 104 D Lactic Acid Calcium 8.8 Phosphorus Magnesium Total Bilirubin 0.4 AST 22 ALT 20 Alkaline Phosphatase 69 Total Creatine Kinase CK-MB (Mass) Troponin I Total Protein 7.1 Albumin 4.2 Globulin 2.9 Albumin/Globulin Ratio 1.5 Triglycerides Cholesterol LDL Cholesterol Direct HDL Cholesterol Amylase Lipase 50 Urine Color Yellow Urine Clarity Hazy Urine pH 6.0 Ur Specific Blanchard 1.024 Urine Protein 1+ H Urine Glucose (UA) Normal Urine Ketones Trace Urine Blood 3+ H Urine Nitrate Negative Urine Bilirubin Negative Urine Urobilinogen Normal Ur Leukocyte Esterase Neg Urine WBC (Auto) 2 Urine RBC (Auto) 273 H Ur Squamous Epith Cells 1 Urine Bacteria Rare Urine HCG, Qual Negative Urine Methadone Screen Ur Barbiturates Screen Ur Phencyclidine Scrn Ur Amphetamines Screen U Benzodiazepines Scrn U Oth Cocaine Metabols U Cannabinoids Screen Blood Type Antibody Screen 07/09/18 07/09/18 07/09/18 00:37 00:37 00:37 WBC 8.4 RBC 4.00 Hgb 9.5 L Hct 29.8 L MCV 74.5 L MCH 23.9 L MCHC 32.0 L RDW 20.8 H Plt Count 251 MPV 8.5 Neut % (Auto) 82.6 H Lymph % (Auto) 12.0 L Pender % (Auto) 5.0 Eos % (Auto) 0.1 Baso % (Auto) 0.3 Neut # (Auto) 6.9 Lymph # (Auto) 1.0 Pender # (Auto) 0.4 Eos # (Auto) 0.0 Baso # (Auto) 0.0 Neutrophils % (Manual) Band Neutrophils % Lymphocytes % (Manual) Monocytes % (Manual) Platelet Estimate Hypochromasia (manual) Poikilocytosis (manual Anisocytosis (manual) Microcytosis (manual) Target Cells Marathon Cells PT 14.2 H INR 1.3 APTT 28 Sodium 136 Potassium 2.4 L* D Chloride 114 H Carbon Dioxide 15 L Anion Gap 9 L BUN 10 Creatinine 0.3 L Est GFR ( Amer) > 60 Est GFR (Non-Af Amer) > 60 POC Glucose (mg/dL) Random Glucose 76 D Lactic Acid Calcium 5.3 L* D Phosphorus Magnesium Total Bilirubin 0.3 AST 11 L D ALT 20 Alkaline Phosphatase 41 Total Creatine Kinase CK-MB (Mass) Troponin I Total Protein 4.1 L Albumin 2.1 L D Globulin 2.1 L Albumin/Globulin Ratio 1.0 Triglycerides Cholesterol LDL Cholesterol Direct HDL Cholesterol Amylase Lipase 28 Urine Color Urine Clarity Urine pH Ur Specific Blanchard Urine Protein Urine Glucose (UA) Urine Ketones Urine Blood Urine Nitrate Urine Bilirubin Urine Urobilinogen Ur Leukocyte Esterase Urine WBC (Auto) Urine RBC (Auto) Ur Squamous Epith Cells Urine Bacteria Urine HCG, Qual Urine Methadone Screen Ur Barbiturates Screen Ur Phencyclidine Scrn Ur Amphetamines Screen U Benzodiazepines Scrn U Oth Cocaine Metabols U Cannabinoids Screen Blood Type Antibody Screen 07/09/18 07/09/18 07/09/18 00:37 02:32 02:38 WBC RBC Hgb Hct MCV MCH MCHC RDW Plt Count MPV Neut % (Auto) Lymph % (Auto) Pender % (Auto) Eos % (Auto) Baso % (Auto) Neut # (Auto) Lymph # (Auto) Pender # (Auto) Eos # (Auto) Baso # (Auto) Neutrophils % (Manual) Band Neutrophils % Lymphocytes % (Manual) Monocytes % (Manual) Platelet Estimate Hypochromasia (manual) Poikilocytosis (manual Anisocytosis (manual) Microcytosis (manual) Target Cells Ramón Cells PT INR APTT Sodium Potassium Chloride Carbon Dioxide Anion Gap BUN Creatinine Est GFR ( Amer) Est GFR (Non-Af Amer) POC Glucose (mg/dL) Random Glucose Lactic Acid 1.4 Calcium Phosphorus 2.8 Magnesium 1.5 L Total Bilirubin AST ALT Alkaline Phosphatase Total Creatine Kinase CK-MB (Mass) Troponin I Total Protein Albumin Globulin Albumin/Globulin Ratio Triglycerides Cholesterol LDL Cholesterol Direct HDL Cholesterol Amylase Lipase Urine Color Urine Clarity Urine pH Ur Specific Blanchard Urine Protein Urine Glucose (UA) Urine Ketones Urine Blood Urine Nitrate Urine Bilirubin Urine Urobilinogen Ur Leukocyte Esterase Urine WBC (Auto) Urine RBC (Auto) Ur Squamous Epith Cells Urine Bacteria Urine HCG, Qual Urine Methadone Screen Ur Barbiturates Screen Ur Phencyclidine Scrn Ur Amphetamines Screen U Benzodiazepines Scrn U Oth Cocaine Metabols U Cannabinoids Screen Blood Type B POSITIVE Antibody Screen Negative 07/09/18 07/09/18 07/09/18 05:37 08:24 08:24 WBC 8.0 RBC 4.15 Hgb 9.8 L Hct 31.2 L MCV 75.2 L MCH 23.6 L MCHC 31.3 L RDW 21.6 H Plt Count 274 MPV 8.7 Neut % (Auto) 72.8 Lymph % (Auto) 19.4 L Pender % (Auto) 7.3 Eos % (Auto) 0.2 Baso % (Auto) 0.3 Neut # (Auto) 5.8 Lymph # (Auto) 1.6 Pender # (Auto) 0.6 Eos # (Auto) 0.0 Baso # (Auto) 0.0 Neutrophils % (Manual) Band Neutrophils % Lymphocytes % (Manual) Monocytes % (Manual) Platelet Estimate Hypochromasia (manual) Poikilocytosis (manual Anisocytosis (manual) Microcytosis (manual) Target Cells Marathon Cells PT INR APTT Sodium 137 Potassium 3.9 Chloride 108 H Carbon Dioxide 20 L Anion Gap 13 BUN 10 Creatinine 0.6 L Est GFR ( Amer) > 60 Est GFR (Non-Af Amer) > 60 POC Glucose (mg/dL) Random Glucose 98 D Lactic Acid Calcium 8.6 Phosphorus 3.2 Magnesium 2.1 Total Bilirubin 0.6 AST 23 ALT 12 Alkaline Phosphatase 59 Total Creatine Kinase 61 CK-MB (Mass) 0.37 Troponin I < 0.0120 Total Protein 6.2 L Albumin 3.5 D Globulin 2.7 Albumin/Globulin Ratio 1.3 Triglycerides 43 D Cholesterol 129 LDL Cholesterol Direct 77 HDL Cholesterol 50 Amylase 55 Lipase Urine Color Urine Clarity Urine pH Ur Specific Blanchard Urine Protein Urine Glucose (UA) Urine Ketones Urine Blood Urine Nitrate Urine Bilirubin Urine Urobilinogen Ur Leukocyte Esterase Urine WBC (Auto) Urine RBC (Auto) Ur Squamous Epith Cells Urine Bacteria Urine HCG, Qual Urine Methadone Screen Ur Barbiturates Screen Ur Phencyclidine Scrn Ur Amphetamines Screen U Benzodiazepines Scrn U Oth Cocaine Metabols U Cannabinoids Screen Blood Type Antibody Screen 07/09/18 07/09/18 11:20 12:16 WBC RBC Hgb Hct MCV MCH MCHC RDW Plt Count MPV Neut % (Auto) Lymph % (Auto) Pender % (Auto) Eos % (Auto) Baso % (Auto) Neut # (Auto) Lymph # (Auto) Pender # (Auto) Eos # (Auto) Baso # (Auto) Neutrophils % (Manual) Band Neutrophils % Lymphocytes % (Manual) Monocytes % (Manual) Platelet Estimate Hypochromasia (manual) Poikilocytosis (manual Anisocytosis (manual) Microcytosis (manual) Target Cells Marathon Cells PT INR APTT Sodium Potassium Chloride Carbon Dioxide Anion Gap BUN Creatinine Est GFR ( Amer) Est GFR (Non-Af Amer) POC Glucose (mg/dL) 99 Random Glucose Lactic Acid Calcium Phosphorus Magnesium Total Bilirubin AST ALT Alkaline Phosphatase Total Creatine Kinase CK-MB (Mass) Troponin I Total Protein Albumin Globulin Albumin/Globulin Ratio Triglycerides Cholesterol LDL Cholesterol Direct HDL Cholesterol Amylase Lipase Urine Color Urine Clarity Urine pH Ur Specific Blanchard Urine Protein Urine Glucose (UA) Urine Ketones Urine Blood Urine Nitrate Urine Bilirubin Urine Urobilinogen Ur Leukocyte Esterase Urine WBC (Auto) Urine RBC (Auto) Ur Squamous Epith Cells Urine Bacteria Urine HCG, Qual Urine Methadone Screen Negative Ur Barbiturates Screen Negative Ur Phencyclidine Scrn Negative Ur Amphetamines Screen Negative U Benzodiazepines Scrn Negative U Oth Cocaine Metabols Negative U Cannabinoids Screen Negative Blood Type Antibody Screen Attending/Attestation - Attestation I have personally seen and examined this patient.: Yes I have fully participated in the care of the patient.: Yes I have reviewed all pertinent clinical information: Yes Notes (Text): 07/09/18 13:51 I have seen and examined patient with GI fellow. Agree with above documentation with the following additions. In brief, this is a 47 year old female with history of PE on eliquis, HTN, who presents to hospital with complaint of sudden onset abdominal pain which began yesterday. Prior to this she was in usual state of health. She reports sharp epigastric, 8/10 intensity pain that radiated to back. She denies recent abdominal trauma, fever/chills, weight lo ss, rectal bleeding, ETOH abuse, NSAID use, or change in bowel habits. PE on eliquis HTN Abdominal pain CT imaging reviewed by me showing acute pancreatitis with questionable hemorrhagic component, SMV thrombosis - Liquid diet as tolerated - Continue with IVF hydration, supportive care - Suggest CT angiography for further vascular evaluation given potential intraabdominal hemorrhage - H/H stable, continue to monitor - Follow up surgical recommendations - Will continue to monitor patient clinical course
--- NOTE | 2018-07-09 11:49 | CT ---
PROCEDURE: CT Abdomen and Pelvis with oral and IV contrast. HISTORY: abd pain/ vomiting COMPARISON: None available TECHNIQUE: Contiguous axial images of the abdomen and pelvis. Oral and IV contrast was administered. Coronal and Sagittal reformats generated and reviewed. Contrast dose: 100 mL Visipaque 320 IV Radiation dose: Total exam DLP = 387.13 mGy-cm. This CT exam was performed using one or more of the following dose reduction techniques: Automated exposure control, adjustment of the mA and/or kV according to patient size, and/or use of iterative reconstruction technique. FINDINGS: LOWER THORAX: No visible consolidation, pleural effusion, or pneumothorax. LIVER: Hypoattenuation of the liver compatible with hepatic steatosis. GALLBLADDER AND BILE DUCTS: Unremarkable. PANCREAS: Extensive peripancreatic inflammatory changes and fluid. Pancreatic edema. Moderate hemorrhagic fluid within the right anterior pararenal space and inferior to the pancreatic head as well as small amount of fluid in the pelvis. SPLEEN: Unremarkable. ADRENALS: Unremarkable. KIDNEYS AND URETERS: The kidneys enhance symmetrically. No hydronephrosis or obstructing renal calculus. 5 cm left renal cyst. BLADDER: The urinary bladder appears unremarkable. REPRODUCTIVE: Uterus is present. Suspected uterine fibroid measuring approximately 4 cm within the uterine body. APPENDIX: No secondary signs of acute appendicitis. BOWEL: The stomach is nondistended. The bowel loops appear within normal limits of caliber without evidence of intestinal obstruction. PERITONEUM: Small pelvic free fluid. No definite free air. LYMPH NODES: No bulky lymphadenopathy identified. VASCULATURE: Question partial filling defect involving the superior mesenteric vein. It is unclear if this finding represents partial thrombus or timing of enhancement/admixture. No aortic aneurysm. BONES: Degenerative changes. Sclerosis bilateral sacroiliac joints, predominant iliac sides. OTHER FINDINGS: None. IMPRESSION: Findings as above appear consistent with hemorrhagic pancreatitis. Hemorrhagic fluid noted in the right anterior pararenal space and inferior to the pancreatic head as well as in the pelvis. Correlate clinically. Question partial filling defect involving the superior mesenteric vein. It is unclear if this finding represents partial thrombus or timing of enhancement/admixture. Suspected uterine fibroid. Pelvic ultrasound may be considered. 5 cm left renal cyst. Hypoattenuation of the liver compatible with hepatic steatosis. Sclerosis bilateral sacroiliac joints, predominant iliac sides. Additional findings as above. Preliminary impression was provided by [employer]. Findings discussed on 05/08/19 at 12:[address] Bose and Dr. Sena.
[2018-07-09 12:44] LABS: BARBITURATES, UR NEGATIVE (NEGATIVE); BENZODIAZEPINES, UR NEGATIVE (NEGATIVE); PHENCYCLIDINE, UR NEGATIVE (NEGATIVE)
[2018-07-09 14:02] LABS: OPIATES, UR POSITIVE (NEGATIVE)
--- NOTE | 2018-07-09 16:51 | CP.PCM.PN ---
Subjective - Date & Time of Evaluation Date of Evaluation: 07/09/18 Time of Evaluation: 16:49 - Subjective Subjective: 47yo F with PMHx of HTN, fibroids, PE on Eliquis presented to the ED with abdominal pain radiating to her back. The pain located in her epigastric area and radiated to her back. She had 1 episode of vomiting. Pt reports that her abdomen felt "inflamed" but that resolved. Currently, pt states pain is resolved. Objective - Vital Signs/Intake and Output Vital Signs (last 24 hours): Temp Pulse Resp BP Pulse Ox 98.3 F 75 16 133/85 100 07/09/18 12:00 07/09/18 14:00 07/09/18 14:00 07/09/18 13:35 07/09/18 14:00 Intake and Output: 07/09/18 07/09/18 06:59 18:59 Intake Total 670 690 Output Total 500 Balance 670 190 - Medications Medications: Current Medications Lactated Ringer's (Lactated Ringer's) 1,000 mls @ 150 mls/hr IV .Q6H40M GABY Last Admin: 07/09/18 11:08 Dose: 150 mls/hr Insulin Human Regular (Novolin R) 0 unit SC Q6H GABY; Protocol Last Admin: 07/09/18 10:46 Dose: Not Given Morphine Sulfate (Morphine) 2 mg IV Q6 PRN PRN Reason: abdominal pain Last Admin: 07/09/18 04:18 Dose: 2 mg - Labs Labs: 07/09/18 08:24 07/09/18 08:24 PT 14.2 SECONDS (9.7-12.2) H 07/09/18 00:37 INR 1.3 07/09/18 00:37 APTT 28 SECONDS (21-34) 07/09/18 00:37 - Additional Findings Additional findings: Physical Exam - Constitutional Appears: Well, Non-toxic, No Acute Distress - Head Exam Head Exam: ATRAUMATIC, NORMAL INSPECTION - Eye Exam Eye Exam: EOMI, Normal appearance - Respiratory Exam Respiratory Exam: NORMAL BREATHING PATTERN. absent: Respiratory Distress - Cardiovascular Exam Cardiovascular Exam: +S1, +S2 - GI/Abdominal Exam GI & Abdominal Exam: Soft, Tenderness (mild epigastric tenderness). absent: Dis tended, Firm, Guarding, Hernia, Rebound, Rigid Additional comments: No harper oquendo/krista sign - Back Exam Back exam: CVA tenderness (R) - Neurological Exam Neurological exam: Alert, CN II-XII Intact, Oriented x3 - Psychiatric Exam Psychiatric exam: Normal Affect, Normal Mood - Skin Skin Exam: Dry, Normal Color, Warm Assessment and Plan - Assessment and Plan (Free Text) Assessment: Assessment / Plan: Hemorrhagic Pancreatitis NPO for now IV fluids and fluid hydration; monitor hemodynamics monitor labs analgesics Surgical evaluation Anemia h/o iron deficiency anemia on iron Hb decreased from 11 to 9.5 in ER --> 9.8 now f/u Hb; continue to monitor H&H 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
[2018-07-09 17:01] LABS: BASO % 0.2 % (0.0-2.0); EOS # 0.1 K/uL (0.0-0.7); HEMOGLOBIN 9.5 g/dL (11.0-16.0); LYMPH # 1.6 K/uL (1.0-4.3); LYMPH % 25.5 % (20.0-40.0); MEAN CELL VOLUME 75.7 fL (81.0-99.0); MEAN CORPUSCULAR HEMOGLOBIN 23.4 pg (27.0-31.0); MEAN PLATELET VOLUME 8.7 fL (7.2-11.7); MONO # 0.6 K/uL (0.0-0.8); MONO % 9.4 % (0.0-10.0); NEUT % 63.9 % (50.0-75.0); NRBC % 0.1 % (0.0-2.0); RBC 4.04 Mil/uL (3.80-5.20); RED CELL DISTRIBUTION WIDTH 21.5 % (11.5-14.5); WHITE BLOOD COUNT 6.2 K/uL (4.8-10.8)
[2018-07-09 18:00] LABS: BLOOD UREA NITROGEN 8 mg/dL (7-17); GFR NON-AFRICAN AMERICAN > 60
[2018-07-09 18:01] LABS: ALB/GLOB RATIO 0.9 (1.0-2.1); ALBUMIN 3.4 g/dL (3.5-5.0); ALT/SGPT 18 U/L (9-52); AST/SGOT 18 U/L (14-36); CALCIUM 8.3 mg/dl (8.6-10.4)
[2018-07-09] MEDS ORDERED: HYDROmorphone 1 mg/ml ISec IVP STA (20:20)
[2018-07-10] MEDS: Lactated Ringer's 1,000 ML IV SCH ×5 (00:29→23:45)
[2018-07-10] MEDS: (Novolin R) Insulin Human Regular 100 units/ml vial SC SCH ×2 (06:00)
[2018-07-10 06:13] LABS: BASO % 0.4 % (0.0-2.0); EOS # 0.1 K/uL (0.0-0.7); EOS % 2.2 % (0.0-4.0); HEMOGLOBIN 8.8 g/dL (11.0-16.0); LYMPH # 1.5 K/uL (1.0-4.3); LYMPH % 33.5 % (20.0-40.0); MEAN CELL VOLUME 74.5 fL (81.0-99.0); MEAN CORPUSCULAR HEMOGLOBIN 23.4 pg (27.0-31.0); MEAN CORPUSCULAR HGB CONC 31.5 g/dL (33.0-37.0); MEAN PLATELET VOLUME 8.7 fL (7.2-11.7); MONO # 0.5 K/uL (0.0-0.8); NEUT # 2.4 K/uL (1.8-7.0); NEUT % 53.9 % (50.0-75.0); RBC 3.74 Mil/uL (3.80-5.20); RED CELL DISTRIBUTION WIDTH 21.7 % (11.5-14.5); WHITE BLOOD COUNT 4.5 K/uL (4.8-10.8)
[2018-07-10 06:16] LABS: ALB/GLOB RATIO 1.2 (1.0-2.1); ALT/SGPT 18 U/L (9-52); AST/SGOT 12 U/L (14-36); BLOOD UREA NITROGEN 7 mg/dL (7-17); CALCIUM 7.9 mg/dl (8.6-10.4); GFR NON-AFRICAN AMERICAN > 60
--- NOTE | 2018-07-10 07:11 | CP.CCUPN ---
<Ralph Joaquin - Last Filed: 07/10/18 18:17> CCU Subjective - Physician Review Critical Care Time Spent (in minutes): 40 CCU Objective - Vital Signs / Intake & Output Vital Signs (Last 4 hours): Vital Signs Temp Pulse Resp BP Pulse Ox 07/10/18 16:00 97.9 F 88 15 100 07/10/18 15:48 89 14 151/97 H 07/10/18 15:35 89 11 L 131/99 H 100 07/10/18 15:00 82 13 100 07/10/18 14:39 84 14 128/88 100 07/10/18 14:35 81 13 133/89 100 Intake and Output (Last 8hrs): Intake & Output 07/10/18 07/10/18 07/10/18 06:59 14:59 22:59 Intake Total 1200 1150 300 Output Total 750 1550 600 Balance 450 -400 -300 Weight 150 lb 5.684 oz Intake: Intake, IV Amount 1200 1150 300 Left Antecubital 0 Left Forearm 150 100 Right Hand 1200 1000 200 Oral 0 0 Output: Urine 750 1550 600 Urine, Voided 750 1550 600 Emesis 0 Other: # Voids Urine, Voided 1 1 1 # Bowel Movements 0 - Medications Active Medications: Active Medications Generic Name Dose Route Start Last Admin Trade Name Freq PRN Reason Stop Dose Admin Diltiazem HCl 120 mg 07/10/18 17:00 07/10/18 17:35 Cardizem Cd PO 120 mg DAILY GABY Administration Lactated Ringer's 1,000 mls @ 150 mls/hr 07/09/18 10:45 07/10/18 12:00 Lactated Ringer's IV 150 mls/hr .Q6H40M GABY Administration Morphine Sulfate 2 mg 07/09/18 03:01 07/10/18 06:16 Morphine IV 2 mg Q6 PRN Administration abdominal pain Pantoprazole Sodium 40 mg 07/10/18 16:00 07/10/18 16:02 Protonix Inj IVP 40 mg DAILY GABY Administration - Patient Studies Lab Studies: Microbiology Studies 07/09/18 02:38 Urine Culture - Final Urine Random 10-50,000 CFU/ML. MULTIPLE SPECIES. PROBABLE CONTAMINATION. 07/09/18 03:52 MRSA Culture (Admit) - Final Nose MRSA NOT DETECTED 07/09/18 03:38 Blood Culture - Preliminary Blood-Venous NO GROWTH AFTER 24 HOURS 07/09/18 03:38 Blood Culture - Preliminary Blood-Venous NO GROWTH AFTER 24 HOURS Lab Studies 07/10/18 07/10/18 07/10/18 Range/Units 12:01 11:41 05:58 WBC (4.8-10.8) K/uL RBC (3.80-5.20) Mil/uL Hgb (11.0-16.0) g/dL Hct (34.0-47.0) % MCV (81.0-99.0) fL MCH (27.0-31.0) pg MCHC (33.0-37.0) g/dL RDW (11.5-14.5) % Plt Count (130-400) K/uL MPV (7.2-11.7) fL Neut % (Auto) (50.0-75.0) % Lymph % (Auto) (20.0-40.0) % [place] % (Auto) (0.0-10.0) % Eos % (Auto) (0.0-4.0) % Baso % (Auto) (0.0-2.0) % Neut # (Auto) (1.8-7.0) K/uL Lymph # (Auto) (1.0-4.3) K/uL [place] # (Auto) (0.0-0.8) K/uL Eos # (Auto) (0.0-0.7) K/uL Baso # (Auto) (0.0-0.2) K/uL D-Dimer, Quantitative < 200 (0-243) ng/mlDDU Sodium 135 (132-148) mmol/L Potassium 3.5 L (3.6-5.2) mmol/L Chloride 103 (98-107) mmol/L Carbon Dioxide 26 (22-30) mmol/L Anion Gap 10 (10-20) BUN 7 (7-17) mg/dL Creatinine 0.6 L (0.7-1.2) mg/dL Est GFR ( Amer) > 60 Est GFR (Non-Af Amer) > 60 POC Glucose (mg/dL) 144 H (65-110) mg/dL Random Glucose 77 (65-105) mg/dL Calcium 7.9 L (8.6-10.4) mg/dl Phosphorus 3.0 (2.5-4.5) mg/dL Magnesium 1.6 (1.6-2.3) mg/dL Total Bilirubin 0.3 (0.2-1.3) mg/dL AST 12 L D (14-36) U/L ALT 18 (9-52) U/L Alkaline Phosphatase 56 (38-126) U/L Total Protein 5.5 L (6.3-8.3) g/dL Albumin 3.0 L (3.5-5.0) g/dL Globulin 2.6 (2.2-3.9) gm/dL Albumin/Globulin Ratio 1.2 (1.0-2.1) 07/10/18 07/10/18 07/09/18 Range/Units 05:58 05:05 23:40 WBC 4.5 L (4.8-10.8) K/uL RBC 3.74 L (3.80-5.20) Mil/uL Hgb 8.8 L (11.0-16.0) g/dL Hct 27.9 L (34.0-47.0) % MCV 74.5 L (81.0-99.0) fL MCH 23.4 L (27.0-31.0) pg MCHC 31.5 L (33.0-37.0) g/dL RDW 21.7 H (11.5-14.5) % Plt Count 256 (130-400) K/uL MPV 8.7 (7.2-11.7) fL Neut % (Auto) 53.9 (50.0-75.0) % Lymph % (Auto) 33.5 (20.0-40.0) % [place] % (Auto) 10.0 (0.0-10.0) % Eos % (Auto) 2.2 (0.0-4.0) % Baso % (Auto) 0.4 (0.0-2.0) % Neut # (Auto) 2.4 (1.8-7.0) K/uL Lymph # (Auto) 1.5 (1.0-4.3) K/uL [place] # (Auto) 0.5 (0.0-0.8) K/uL Eos # (Auto) 0.1 (0.0-0.7) K/uL Baso # (Auto) 0.0 (0.0-0.2) K/uL D-Dimer, Quantitative (0-243) ng/mlDDU Sodium (132-148) mmol/L Potassium (3.6-5.2) mmol/L Chloride (98-107) mmol/L Carbon Dioxide (22-30) mmol/L Anion Gap (10-20) BUN (7-17) mg/dL Creatinine (0.7-1.2) mg/dL Est GFR ( Amer) Est GFR (Non-Af Amer) POC Glucose (mg/dL) 96 84 (65-110) mg/dL Random Glucose (65-105) mg/dL Calcium (8.6-10.4) mg/dl Phosphorus (2.5-4.5) mg/dL Magnesium (1.6-2.3) mg/dL Total Bilirubin (0.2-1.3) mg/dL AST (14-36) U/L ALT (9-52) U/L Alkaline Phosphatase (38-126) U/L Total Protein (6.3-8.3) g/dL Albumin (3.5-5.0) g/dL Globulin (2.2-3.9) gm/dL Albumin/Globulin Ratio (1.0-2.1) Laboratory Results - last 24 hr 07/09/18 07/10/18 07/10/18 23:40 05:05 05:58 WBC 4.5 L RBC 3.74 L Hgb 8.8 L Hct 27.9 L MCV 74.5 L MCH 23.4 L MCHC 31.5 L RDW 21.7 H Plt Count 256 MPV 8.7 Neut % (Auto) 53.9 Lymph % (Auto) 33.5 [place] % (Auto) 10.0 Eos % (Auto) 2.2 Baso % (Auto) 0.4 Neut # (Auto) 2.4 Lymph # (Auto) 1.5 [place] # (Auto) 0.5 Eos # (Auto) 0.1 Baso # (Auto) 0.0 D-Dimer, Quantitative Sodium Potassium Chloride Carbon Dioxide Anion Gap BUN Creatinine Est GFR ( Amer) Est GFR (Non-Af Amer) POC Glucose (mg/dL) 84 96 Random Glucose Calcium Phosphorus Magnesium Total Bilirubin AST ALT Alkaline Phosphatase Total Protein Albumin Globulin Albumin/Globulin Ratio 07/10/18 07/10/18 07/10/18 05:58 11:41 12:01 WBC RBC Hgb Hct MCV MCH MCHC RDW Plt Count MPV Neut % (Auto) Lymph % (Auto) [place] % (Auto) Eos % (Auto) Baso % (Auto) Neut # (Auto) Lymph # (Auto) [place] # (Auto) Eos # (Auto) Baso # (Auto) D-Dimer, Quantitative < 200 Sodium 135 Potassium 3.5 L Chloride 103 Carbon Dioxide 26 Anion Gap 10 BUN 7 Creatinine 0.6 L Est GFR ( Amer) > 60 Est GFR (Non-Af Amer) > 60 POC Glucose (mg/dL) 144 H Random Glucose 77 Calcium 7.9 L Phosphorus 3.0 Magnesium 1.6 Total Bilirubin 0.3 AST 12 L D ALT 18 Alkaline Phosphatase 56 Total Protein 5.5 L Albumin 3.0 L Globulin 2.6 Albumin/Globulin Ratio 1.2 Radiology Impressions: Radiology Impressions Angiography CT 07/10/18 12:59 Impression: Findings as above appear consistent with hemorrhagic pancreatitis. Hemorrhagic fluid evident within the right para renal space, inferior to the pancreatic head, as well as in the pelvis. Perihepatic ascites noted. No evidence of aortic dissection or aneurysmal dilatation. Please note that examination was performed as a CTA and venous structures cannot be assessed, including superior mesenteric vein of which a question was raised regarding partial thrombus or admixture/timing of study acquisition on prior CT of the abdomen and pelvis on 07/08/18. Additional findings as above. EKG/Cardiology Studies: Cardiology / EKG Studies 07/10/18 10:25 EKG [ELECTROCARDIOGRAM] Stat Comment: Mode Of Transportation: Reason For Exam: tachy 07/10/18 14:17 EKG [ELECTROCARDIOGRAM] Stat Comment: Mode Of Transportation: Reason For Exam: episode of svt Critical Care Progress Note - Nutrition Nutrition: Nutrition Category Date Time Status Liquid Diet [DIET] Diets 07/10/18 Lunch Active Attending/Attestation - Attestation I have personally seen and examined this patient.: Yes I have fully participated in the care of the patient.: Yes I have reviewed all pertinent clinical information: Yes Notes (Text): 07/10/18 18:17 Patient seen and examined in the intensive care unit. CT angiogram of the abdomen consistent with hemorrhagic pancreatitis and blood in the pararenal space No aortic dissection noted Cardiology evaluation and patient started on Cardizem for multiple episodes/runs of SVT during vomiting Anticoagulation on hold Follow-up CBC and transfuse if necessary GI on board <Robb Plaza M - Last Filed: 07/10/18 21:40> CCU Subjective - Physician Review Subjective (Free Text): Critical care consult note for Dr. Joaquin Patient seen and examined at bedside. Patient this AM stated she was feeling much better. As the day progressed, patient stated she was having several episod es of vomiting along with increased abdominal pain. Patient additionally was feeling like her heart was beating fast. Found to have HR in 180s, SVT. Relieved with carotid massage. Patient denies chest pain, SOB, headaches, vision changes, dysuria, hematuria. 07/10/18 21:32 CCU Objective - Vital Signs / Intake & Output Vital Signs (Last 4 hours): Vital Signs Temp Pulse Resp BP Pulse Ox 07/10/18 06:35 69 12 124/84 100 07/10/18 06:00 90 11 L 100 07/10/18 05:35 77 12 127/90 99 07/10/18 05:00 75 16 97 07/10/18 04:35 66 15 130/91 H 99 07/10/18 04:00 98.2 F 65 14 100 07/10/18 03:35 63 13 136/87 99 Intake and Output (Last 8hrs): Intake & Output 07/09/18 07/10/18 07/10/18 22:59 06:59 14:59 Intake Total 1200 1200 Output Total 700 750 Balance 500 450 Weight 150 lb 5.684 oz Intake: Intake, IV Amount 1200 1200 Left Antecubital 0 0 Right Hand 1200 1200 Oral 0 0 Output: Urine 700 750 Urine, Voided 700 750 Emesis 0 0 Other: # Voids Urine, Voided 0 1 # Bowel Movements 0 0 - Physical Exam Head: Positive for: Normocephalic Extroacular Muscles: Positive for: EOMI Conjunctiva: Positive for: Normal Mouth: Positive for: Moist Mucous Membranes Respiratory/Chest: Positive for: Clear to Auscultation. Negative for: Accessory Muscle Use, Wheezes, Retracting Cardiovascular: Positive for: Normal S1, S2, Other Abdomen: Positive for: Tenderness (epigastric tenderness on palpation), Other (epigastric tenderness on palpation). Negative for: Distention Lower Extremity: Positive for: Normal Inspection. Negative for: Edema, CALF TENDERNESS Neurological: Positive for: GCS=15 Skin: Positive for: Warm, Dry Psychiatric: Positive for: Oriented x 3 - Medications Active Medications: Active Medications Generic Name Dose Route Start Last Admin Trade Name Freq PRN Reason Stop Dose Admin Lactated Ringer's 1,000 mls @ 150 mls/hr 07/09/18 10:45 07/10/18 06:07 Lactated Ringer's IV 150 mls/hr .Q6H40M GABY Administration Insulin Human Regular 0 unit 07/10/18 00:00 07/10/18 06:00 Novolin R SC Not Given Q6 GABY Protocol Morphine Sulfate 2 mg 07/09/18 03:01 07/10/18 06:16 Morphine IV 2 mg Q6 PRN Administration abdominal pain - Patient Studies Lab Studies: Microbiology Studies 07/09/18 03:38 Blood Culture - Preliminary Blood-Venous NO GROWTH AFTER 24 HOURS 07/09/18 03:38 Blood Culture - Preliminary Blood-Venous NO GROWTH AFTER 24 HOURS Lab Studies 07/10/18 07/10/18 07/10/18 Range/Units 05:58 05:58 05:05 WBC 4.5 L (4.8-10.8) K/uL RBC 3.74 L (3.80-5.20) Mil/uL Hgb 8.8 L (11.0-16.0) g/dL Hct 27.9 L (34.0-47.0) % MCV 74.5 L (81.0-99.0) fL MCH 23.4 L (27.0-31.0) pg MCHC 31.5 L (33.0-37.0) g/dL RDW 21.7 H (11.5-14.5) % Plt Count 256 (130-400) K/uL MPV 8.7 (7.2-11.7) fL Neut % (Auto) 53.9 (50.0-75.0) % Lymph % (Auto) 33.5 (20.0-40.0) % [place] % (Auto) 10.0 (0.0-10.0) % Eos % (Auto) 2.2 (0.0-4.0) % Baso % (Auto) 0.4 (0.0-2.0) % Neut # (Auto) 2.4 (1.8-7.0) K/uL Lymph # (Auto) 1.5 (1.0-4.3) K/uL [place] # (Auto) 0.5 (0.0-0.8) K/uL Eos # (Auto) 0.1 (0.0-0.7) K/uL Baso # (Auto) 0.0 (0.0-0.2) K/uL Sodium 135 (132-148) mmol/L Potassium 3.5 L (3.6-5.2) mmol/L Chloride 103 (98-107) mmol/L Carbon Dioxide 26 (22-30) mmol/L Anion Gap 10 (10-20) BUN 7 (7-17) mg/dL Creatinine 0.6 L (0.7-1.2) mg/dL Est GFR ( Amer) > 60 Est GFR (Non-Af Amer) > 60 POC Glucose (mg/dL) 96 (65-110) mg/dL Random Glucose 77 (65-105) mg/dL Calcium 7.9 L (8.6-10.4) mg/dl Phosphorus 3.0 (2.5-4.5) mg/dL Magnesium 1.6 (1.6-2.3) mg/dL Total Bilirubin 0.3 (0.2-1.3) mg/dL AST 12 L D (14-36) U/L ALT 18 (9-52) U/L Alkaline Phosphatase 56 (38-126) U/L Total Creatine Kinase (30-135) U/L CK-MB (Mass) (0.0-3.38) ng/mL Troponin I (0.00-0.120) ng/mL Total Protein 5.5 L (6.3-8.3) g/dL Albumin 3.0 L (3.5-5.0) g/dL Globulin 2.6 (2.2-3.9) gm/dL Albumin/Globulin Ratio 1.2 (1.0-2.1) Triglycerides (0-149) mg/dL Cholesterol (0-199) mg/dL LDL Cholesterol Direct (0-129) mg/dL HDL Cholesterol (30-70) mg/dL Urine Opiates Screen (NEGATIVE) Urine Methadone Screen (NEGATIVE) Ur Barbiturates Screen (NEGATIVE) Ur Phencyclidine Scrn (NEGATIVE) Ur Amphetamines Screen (NEGATIVE) U Benzodiazepines Scrn (NEGATIVE) U Oth Cocaine Metabols (NEGATIVE) U Cannabinoids Screen (NEGATIVE) 07/09/18 07/09/18 07/09/18 Range/Units 23:40 16:53 16:53 WBC 6.2 (4.8-10.8) K/uL RBC 4.04 (3.80-5.20) Mil/uL Hgb 9.5 L (11.0-16.0) g/dL Hct 30.5 L (34.0-47.0) % MCV 75.7 L (81.0-99.0) fL MCH 23.4 L (27.0-31.0) pg MCHC 31.0 L (33.0-37.0) g/dL RDW 21.5 H (11.5-14.5) % Plt Count 249 (130-400) K/uL MPV 8.7 (7.2-11.7) fL Neut % (Auto) 63.9 (50.0-75.0) % Lymph % (Auto) 25.5 (20.0-40.0) % [place] % (Auto) 9.4 (0.0-10.0) % Eos % (Auto) 1.0 (0.0-4.0) % Baso % (Auto) 0.2 (0.0-2.0) % Neut # (Auto) 4.0 (1.8-7.0) K/uL Lymph # (Auto) 1.6 (1.0-4.3) K/uL [place] # (Auto) 0.6 (0.0-0.8) K/uL Eos # (Auto) 0.1 (0.0-0.7) K/uL Baso # (Auto) 0.0 (0.0-0.2) K/uL Sodium 138 (132-148) mmol/L Potassium 3.6 (3.6-5.2) mmol/L Chloride 106 (98-107) mmol/L Carbon Dioxide 25 (22-30) mmol/L Anion Gap 11 (10-20) BUN 8 (7-17) mg/dL Creatinine 0.6 L (0.7-1.2) mg/dL Est GFR ( Amer) > 60 Est GFR (Non-Af Amer) > 60 POC Glucose (mg/dL) 84 (65-110) mg/dL Random Glucose 87 (65-105) mg/dL Calcium 8.3 L (8.6-10.4) mg/dl Phosphorus (2.5-4.5) mg/dL Magnesium (1.6-2.3) mg/dL Total Bilirubin 0.5 (0.2-1.3) mg/dL AST 18 (14-36) U/L ALT 18 (9-52) U/L Alkaline Phosphatase 61 (38-126) U/L Total Creatine Kinase (30-135) U/L CK-MB (Mass) (0.0-3.38) ng/mL Troponin I (0.00-0.120) ng/mL Total Protein 6.1 L (6.3-8.3) g/dL Albumin 3.4 L (3.5-5.0) g/dL Globulin 3.7 (2.2-3.9) gm/dL Albumin/Globulin Ratio 0.9 L (1.0-2.1) Triglycerides (0-149) mg/dL Cholesterol (0-199) mg/dL LDL Cholesterol Direct (0-129) mg/dL HDL Cholesterol (30-70) mg/dL Urine Opiates Screen (NEGATIVE) Urine Methadone Screen (NEGATIVE) Ur Barbiturates Screen (NEGATIVE) Ur Phencyclidine Scrn (NEGATIVE) Ur Amphetamines Screen (NEGATIVE) U Benzodiazepines Scrn (NEGATIVE) U Oth Cocaine Metabols (NEGATIVE) U Cannabinoids Screen (NEGATIVE) 07/09/18 07/09/18 07/09/18 Range/Units 12:16 11:20 08:24 WBC (4.8-10.8) K/uL RBC (3.80-5.20) Mil/uL Hgb (11.0-16.0) g/dL Hct (34.0-47.0) % MCV (81.0-99.0) fL MCH (27.0-31.0) pg MCHC (33.0-37.0) g/dL RDW (11.5-14.5) % Plt Count (130-400) K/uL MPV (7.2-11.7) fL Neut % (Auto) (50.0-75.0) % Lymph % (Auto) (20.0-40.0) % [place] % (Auto) (0.0-10.0) % Eos % (Auto) (0.0-4.0) % Baso % (Auto) (0.0-2.0) % Neut # (Auto) (1.8-7.0) K/uL Lymph # (Auto) (1.0-4.3) K/uL [place] # (Auto) (0.0-0.8) K/uL Eos # (Auto) (0.0-0.7) K/uL Baso # (Auto) (0.0-0.2) K/uL Sodium 137 (132-148) mmol/L Potassium 3.9 (3.6-5.2) mmol/L Chloride 108 H (98-107) mmol/L Carbon Dioxide 20 L (22-30) mmol/L Anion Gap 13 (10-20) BUN 10 (7-17) mg/dL Creatinine 0.6 L (0.7-1.2) mg/dL Est GFR ( Amer) > 60 Est GFR (Non-Af Amer) > 60 POC Glucose (mg/dL) 99 (65-110) mg/dL Random Glucose 98 D (65-105) mg/dL Calcium 8.6 (8.6-10.4) mg/dl Phosphorus 3.2 (2.5-4.5) mg/dL Magnesium 2.1 (1.6-2.3) mg/dL Total Bilirubin 0.6 (0.2-1.3) mg/dL AST 23 (14-36) U/L ALT 12 (9-52) U/L Alkaline Phosphatase 59 (38-126) U/L Total Creatine Kinase 61 (30-135) U/L CK-MB (Mass) 0.37 (0.0-3.38) ng/mL Troponin I < 0.0120 (0.00-0.120) ng/mL Total Protein 6.2 L (6.3-8.3) g/dL Albumin 3.5 D (3.5-5.0) g/dL Globulin 2.7 (2.2-3.9) gm/dL Albumin/Globulin Ratio 1.3 (1.0-2.1) Triglycerides 43 D (0-149) mg/dL Cholesterol 129 (0-199) mg/dL LDL Cholesterol Direct 77 (0-129) mg/dL HDL Cholesterol 50 (30-70) mg/dL Urine Opiates Screen Positive H (NEGATIVE) Urine Methadone Screen Negative (NEGATIVE) Ur Barbiturates Screen Negative (NEGATIVE) Ur Phencyclidine Scrn Negative (NEGATIVE) Ur Amphetamines Screen Negative (NEGATIVE) U Benzodiazepines Scrn Negative (NEGATIVE) U Oth Cocaine Metabols Negative (NEGATIVE) U Cannabinoids Screen Negative (NEGATIVE) 07/09/18 Range/Units 08:24 WBC 8.0 (4.8-10.8) K/uL RBC 4.15 (3.80-5.20) Mil/uL Hgb 9.8 L (11.0-16.0) g/dL Hct 31.2 L (34.0-47.0) % MCV 75.2 L (81.0-99.0) fL MCH 23.6 L (27.0-31.0) pg MCHC 31.3 L (33.0-37.0) g/dL RDW 21.6 H (11.5-14.5) % Plt Count 274 (130-400) K/uL MPV 8.7 (7.2-11.7) fL Neut % (Auto) 72.8 (50.0-75.0) % Lymph % (Auto) 19.4 L (20.0-40.0) % [place] % (Auto) 7.3 (0.0-10.0) % Eos % (Auto) 0.2 (0.0-4.0) % Baso % (Auto) 0.3 (0.0-2.0) % Neut # (Auto) 5.8 (1.8-7.0) K/uL Lymph # (Auto) 1.6 (1.0-4.3) K/uL [place] # (Auto) 0.6 (0.0-0.8) K/uL Eos # (Auto) 0.0 (0.0-0.7) K/uL Baso # (Auto) 0.0 (0.0-0.2) K/uL Sodium (132-148) mmol/L Potassium (3.6-5.2) mmol/L Chloride (98-107) mmol/L Carbon Dioxide (22-30) mmol/L Anion Gap (10-20) BUN (7-17) mg/dL Creatinine (0.7-1.2) mg/dL Est GFR ( Amer) Est GFR (Non-Af Amer) POC Glucose (mg/dL) (65-110) mg/dL Random Glucose (65-105) mg/dL Calcium (8.6-10.4) mg/dl Phosphorus (2.5-4.5) mg/dL Magnesium (1.6-2.3) mg/dL Total Bilirubin (0.2-1.3) mg/dL AST (14-36) U/L ALT (9-52) U/L Alkaline Phosphatase (38-126) U/L Total Creatine Kinase (30-135) U/L CK-MB (Mass) (0.0-3.38) ng/mL Troponin I (0.00-0.120) ng/mL Total Protein (6.3-8.3) g/dL Albumin (3.5-5.0) g/dL Globulin (2.2-3.9) gm/dL Albumin/Globulin Ratio (1.0-2.1) Triglycerides (0-149) mg/dL Cholesterol (0-199) mg/dL LDL Cholesterol Direct (0-129) mg/dL HDL Cholesterol (30-70) mg/dL Urine Opiates Screen (NEGATIVE) Urine Methadone Screen (NEGATIVE) Ur Barbiturates Screen (NEGATIVE) Ur Phencyclidine Scrn (NEGATIVE) Ur Amphetamines Screen (NEGATIVE) U Benzodiazepines Scrn (NEGATIVE) U Oth Cocaine Metabols (NEGATIVE) U Cannabinoids Screen (NEGATIVE) Laboratory Results - last 24 hr 07/09/18 07/09/18 07/09/18 08:24 08:24 11:20 WBC 8.0 RBC 4.15 Hgb 9.8 L Hct 31.2 L MCV 75.2 L MCH 23.6 L MCHC 31.3 L RDW 21.6 H Plt Count 274 MPV 8.7 Neut % (Auto) 72.8 Lymph % (Auto) 19.4 L [place] % (Auto) 7.3 Eos % (Auto) 0.2 Baso % (Auto) 0.3 Neut # (Auto) 5.8 Lymph # (Auto) 1.6 [place] # (Auto) 0.6 Eos # (Auto) 0.0 Baso # (Auto) 0.0 Sodium 137 Potassium 3.9 Chloride 108 H Carbon Dioxide 20 L Anion Gap 13 BUN 10 Creatinine 0.6 L Est GFR ( Amer) > 60 Est GFR (Non-Af Amer) > 60 POC Glucose (mg/dL) 99 Random Glucose 98 D Calcium 8.6 Phosphorus 3.2 Magnesium 2.1 Total Bilirubin 0.6 AST 23 ALT 12 Alkaline Phosphatase 59 Total Creatine Kinase 61 CK-MB (Mass) 0.37 Troponin I < 0.0120 Total Protein 6.2 L Albumin 3.5 D Globulin 2.7 Albumin/Globulin Ratio 1.3 Triglycerides 43 D Cholesterol 129 LDL Cholesterol Direct 77 HDL Cholesterol 50 Urine Opiates Screen Urine Methadone Screen Ur Barbiturates Screen Ur Phencyclidine Scrn Ur Amphetamines Screen U Benzodiazepines Scrn U Oth Cocaine Metabols U Cannabinoids Screen 07/09/18 07/09/18 07/09/18 12:16 16:53 16:53 WBC 6.2 RBC 4.04 Hgb 9.5 L Hct 30.5 L MCV 75.7 L MCH 23.4 L MCHC 31.0 L RDW 21.5 H Plt Count 249 MPV 8.7 Neut % (Auto) 63.9 Lymph % (Auto) 25.5 [place] % (Auto) 9.4 Eos % (Auto) 1.0 Baso % (Auto) 0.2 Neut # (Auto) 4.0 Lymph # (Auto) 1.6 [place] # (Auto) 0.6 Eos # (Auto) 0.1 Baso # (Auto) 0.0 Sodium 138 Potassium 3.6 Chloride 106 Carbon Dioxide 25 Anion Gap 11 BUN 8 Creatinine 0.6 L Est GFR ( Amer) > 60 Est GFR (Non-Af Amer) > 60 POC Glucose (mg/dL) Random Glucose 87 Calcium 8.3 L Phosphorus Magnesium Total Bilirubin 0.5 AST 18 ALT 18 Alkaline Phosphatase 61 Total Creatine Kinase CK-MB (Mass) Troponin I Total Protein 6.1 L Albumin 3.4 L Globulin 3.7 Albumin/Globulin Ratio 0.9 L Triglycerides Cholesterol LDL Cholesterol Direct HDL Cholesterol Urine Opiates Screen Positive H Urine Methadone Screen Negative Ur Barbiturates Screen Negative Ur Phencyclidine Scrn Negative Ur Amphetamines Screen Negative U Benzodiazepines Scrn Negative U Oth Cocaine Metabols Negative U Cannabinoids Screen Negative 07/09/18 07/10/18 07/10/18 23:40 05:05 05:58 WBC 4.5 L RBC 3.74 L Hgb 8.8 L Hct 27.9 L MCV 74.5 L MCH 23.4 L MCHC 31.5 L RDW 21.7 H Plt Count 256 MPV 8.7 Neut % (Auto) 53.9 Lymph % (Auto) 33.5 [place] % (Auto) 10.0 Eos % (Auto) 2.2 Baso % (Auto) 0.4 Neut # (Auto) 2.4 Lymph # (Auto) 1.5 [place] # (Auto) 0.5 Eos # (Auto) 0.1 Baso # (Auto) 0.0 Sodium Potassium Chloride Carbon Dioxide Anion Gap BUN Creatinine Est GFR ( Amer) Est GFR (Non-Af Amer) POC Glucose (mg/dL) 84 96 Random Glucose Calcium Phosphorus Magnesium Total Bilirubin AST ALT Alkaline Phosphatase Total Creatine Kinase CK-MB (Mass) Troponin I Total Protein Albumin Globulin Albumin/Globulin Ratio Triglycerides Cholesterol LDL Cholesterol Direct HDL Cholesterol Urine Opiates Screen Urine Methadone Screen Ur Barbiturates Screen Ur Phencyclidine Scrn Ur Amphetamines Screen U Benzodiazepines Scrn U Oth Cocaine Metabols U Cannabinoids Screen 07/10/18 05:58 WBC RBC Hgb Hct MCV MCH MCHC RDW Plt Count MPV Neut % (Auto) Lymph % (Auto) [place] % (Auto) Eos % (Auto) Baso % (Auto) Neut # (Auto) Lymph # (Auto) [place] # (Auto) Eos # (Auto) Baso # (Auto) Sodium 135 Potassium 3.5 L Chloride 103 Carbon Dioxide 26 Anion Gap 10 BUN 7 Creatinine 0.6 L Est GFR ( Amer) > 60 Est GFR (Non-Af Amer) > 60 POC Glucose (mg/dL) Random Glucose 77 Calcium 7.9 L Phosphorus 3.0 Magnesium 1.6 Total Bilirubin 0.3 AST 12 L D ALT 18 Alkaline Phosphatase 56 Total Creatine Kinase CK-MB (Mass) Troponin I Total Protein 5.5 L Albumin 3.0 L Globulin 2.6 Albumin/Globulin Ratio 1.2 Triglycerides Cholesterol LDL Cholesterol Direct HDL Cholesterol Urine Opiates Screen Urine Methadone Screen Ur Barbiturates Screen Ur Phencyclidine Scrn Ur Amphetamines Screen U Benzodiazepines Scrn U Oth Cocaine Metabols U Cannabinoids Screen Radiology Impressions: Radiology Impressions Abdomen Ultrasound 07/08/18 18:46 IMPRESSION: The large intra cortical slightly exophytic medial left upper renal pole cortical cyst is similar to the prior study. No significant appearing hydronephrosis suggested. The cyst measures up to 5.8 cm in size. Mild relative fullness to the right intra renal/intrapelvic major calices of the right collecting system. No more diffuse hydronephrosis seen. Probable small nonobstructing right upper renal pole calculi-previously mention on prior renal ultrasound report. No significant appearing shadowing associated with them noted. 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 Concordant results (preliminary interpretation) provided by [employer]. Abdomen/Pelvis CT 07/08/18 22:01 IMPRESSION: Findings as above appear consistent with hemorrhagic pancreatitis. Hemorrhagic fluid noted in the right anterior pararenal space and inferior to the pancreatic head as well as in the pelvis. Correlate clinically. Question partial filling defect involving the superior mesenteric vein. It is unclear if this finding represents partial thrombus or timing of enhancement/admixture. Suspected uterine fibroid. Pelvic ultrasound may be considered. 5 cm left renal cyst. Hypoattenuation of the liver compatible with hepatic steatosis. Sclerosis bilateral sacroiliac joints, predominant iliac sides. Additional findings as above. Preliminary impression was provided by [employer]. Findings discussed on 05/08/19 at 12:[address] Bose and Dr. Sena. Chest X-Ray 07/09/18 02:49 IMPRESSION: No active disease. EKG/Cardiology Studies: Cardiology / EKG Studies 07/09/18 08:30 EKG [ELECTROCARDIOGRAM] Stat Comment: Mode Of Transportation: Reason For Exam: electrolyte imbalances Fingerstick Blood Sugar Results: 96 Review of Systems - Constitutional Constitutional: absent: Sweats, Weakness - EENT Eyes: UNREMARKABLE Ears: UNREMARKABLE Nose/Mouth/Throat: UNREMARKABLE - Breasts Breasts: UNREMARKABLE - Cardiovascular Cardiovascular: UNREMARKABLE - Respiratory Respiratory: UNREMARKABLE - Gastrointestinal Gastrointestinal: Abdominal Pain, Nausea, Vomiting - Genitourinary Genitourinary: UNREMARKABLE - Reproductive: Female Reproductive:Female: UNREMARKABLE - Menstruation Menstruation: UNREMARKABLE - Musculoskeletal Musculoskeletal: UNREMARKABLE - Integumentary Integumentary: UNREMARKABLE - Hematologic/Lymphatic Hematologic: UNREMARKABLE Critical Care Progress Note - Extremities/Vascular Does the Patient have a Central Venous Catheter?: No Does the Patient need a Central Venous Catheter?: No Does the Patient have a [place] Catheter?: No Does the Patient need a [place] Catheter?: No - Prophylaxis GI Prophylaxis GI: PPI - Prophylaxis DVT Prophylaxis DVT: Not Indicated - Nutrition Nutrition: Nutrition Category Date Time Status NPO Diet [DIET] Diets 07/09/18 Breakfast Active Assessment/Plan - Assessment and Plan (Free Text) Assessment: 47 F w/ hx of PE, HTN presented w/ abdominal pain, found to have hemmorhagic vs necrotizing pancreatitis, 07/10 began having episodes of SVT w/ HR in 180s following episode of vomiting; relieved with carotid massage Plan: Neuro - A&O x3 Cardio - SVT w/ HR in 180s w/ vomiting - F/u cardio, Dr. Santamaria - likely 2/2 to a calcium re-entry circuit issue - Cardizem 120 mg PO daily - EKG showing qTC prolongation in 470s Pulm - no active disease GI - CT abd/pelvis (07/08/18): hemorhaggic / necrotizing pancreatitis, partial filling defect of SMA - U/S abd/pelvis (07/08/18): renal pole cyst - per GI, advance diet to [facility]D - LR 150ml/hr - morphine 2mg Q6H PRN pain - Hold eliquis - urinating well Renal - BUN/Cr: 10/0.6 - CMP @ [place] 07/09 showing several electrolyte abnormalities; repeat CMP before replenishment normal - believe CMP @ [place] 14 maybe lab error and will repeat in PM labs Endo - accuchecks Q6H - ISS Q6H Heme - H/H in 8s/27.5; likely dilutional 2/2 to LR @ 150ml/hr - stable, will monitor ID - WBC WNL - afebrile - no abx warranted at this time PPx - DVT - contraindicated at this time due to hemorrhagic pancreatitis, f/u venous dopplers prior to SCDS - GI - protonix 40 daily
--- NOTE | 2018-07-10 08:50 | CP.PCM.PN ---
Subjective - Date & Time of Evaluation Date of Evaluation: 07/10/18 Time of Evaluation: 07:00 - Subjective Subjective: GENERAL SURGERY PROGRESS NOTE FOR DR. POOL Patient seen and examined at bedside in the ICU. She denies nausea or vomiting. Reports mild abdominal pain controlled with morphine. Pain is located in epigastric area. Denies having an appetite. Hasn't eaten yet. UO 750cc overnight. Objective - Vital Signs/Intake and Output Vital Signs (last 24 hours): Temp Pulse Resp BP Pulse Ox 98.2 F 85 14 140/94 H 100 07/10/18 08:00 07/10/18 08:00 07/10/18 08:00 07/10/18 07:35 07/10/18 08:00 Intake and Output: 07/10/18 07/10/18 06:59 18:59 Intake Total 1800 300 Output Total 750 Balance 1050 300 - Medications Medications: Current Medications Lactated Ringer's (Lactated Ringer's) 1,000 mls @ 150 mls/hr IV .Q6H40M [facility] Last Admin: 07/10/18 06:07 Dose: 150 mls/hr Potassium Chloride/Dextrose/Sod Cl (Potassium Chl 40 Meq In D5-1/2ns) 1,000 mls @ 100 mls/hr IV .Q10H [facility] Magnesium Sulfate/Dextrose (Magnesium Sulfate 1 Gm/100 Ml D5w) 1 gm in 100 mls @ 300 mls/hr IVPB Q30M [facility] Stop: 07/10/18 10:19 Insulin Human Regular (Novolin R) 0 unit SC Q6 [facility]; Protocol Last Admin: 07/10/18 06:00 Dose: Not Given Morphine Sulfate (Morphine) 2 mg IV Q6 PRN PRN Reason: abdominal pain Last Admin: 07/10/18 06:16 Dose: 2 mg - Labs Labs: 07/10/18 05:58 07/10/18 05:58 PT 14.2 SECONDS (9.7-12.2) H 07/09/18 00:37 INR 1.3 07/09/18 00:37 APTT 28 SECONDS (21-34) 07/09/18 00:37 - Constitutional Appears: Non-toxic, No Acute Distress - Head Exam Head Exam: ATRAUMATIC, NORMAL INSPECTION - Respiratory Exam Respiratory Exam: NORMAL BREATHING PATTERN. absent: Respiratory Distress - Cardiovascular Exam Cardiovascular Exam: +S1, +S2 - GI/Abdominal Exam GI & Abdominal Exam: Soft, Tenderness (mild RUQ/epigastric). absent: Distended, Firm, Guarding, Rigid, Rebound - Back Exam Back Exam: NORMAL INSPECTION. absent: CVA tenderness (L), CVA tenderness (R) - Neurological Exam Neurological Exam: Alert, Awake, Oriented x3 - Psychiatric Exam Psychiatric exam: Normal Affect, Normal Mood - Skin Skin Exam: Dry, Normal Color, Warm Assessment and Plan - Assessment and Plan (Free Text) Assessment: 47yo F with PMHx of HTN, fibroids, PE on Eliquis presents to the ED with abdominal pain radiating to her back. Found to have possible hemorrhagic pancreatitis on CT - Afebrile, hemodynamically stable - Hgb 8.8 from 9.5 yesterday - CT: peripancreatic stranding & fluid compatible w/ pancreatitis, also moderate hemorrhagic fluid in right anterior pararenal space & inferior to pancreatic head. Small amount hemorrhagic fluid also in low pelvis. Most commonly relates to hemorrhagic/necrotizing pancreatitis associated partial thrombosis of SMV whch is not extending to portal vein - GI following, advanced pt to CLD and ordered CTA - IV fluids - Strict I&O - Will FU CTA - Discussed plan with Dr. Lewis Jacob PGY-4
--- NOTE | 2018-07-10 09:08 | CP.PCM.PN ---
<Gabriel Almanza - Last Filed: 07/10/18 13:08> Subjective - Date & Time of Evaluation Date of Evaluation: 07/10/18 Time of Evaluation: 08:10 - Subjective Subjective: PGY6 GI Fellow Progress Note Patient seen and examined bedside this morning. The patient states that pain remains and is about the same as yesterday. Admits to feeling dizzy at rest. No nausea, vomiting today. Hungry and eager to eat. 12 system ROS performed and negative except where stated. Objective - Vital Signs/Intake and Output Vital Signs (last 24 hours): Temp Pulse Resp BP Pulse Ox 98.2 F 85 14 140/94 H 100 07/10/18 08:00 07/10/18 08:00 07/10/18 08:00 07/10/18 07:35 07/10/18 08:00 Intake and Output: 07/10/18 07/10/18 06:59 18:59 Intake Total 1800 300 Output Total 750 450 Balance 1050 -150 - Medications Medications: Current Medications Lactated Ringer's (Lactated Ringer's) 1,000 mls @ 150 mls/hr IV .Q6H40M [facility] Last Admin: 07/10/18 06:07 Dose: 150 mls/hr Potassium Chloride/Dextrose/Sod Cl (Potassium Chl 40 Meq In D5-1/2ns) 1,000 mls @ 100 mls/hr IV .Q10H [facility] Magnesium Sulfate/Dextrose (Magnesium Sulfate 1 Gm/100 Ml D5w) 1 gm in 100 mls @ 300 mls/hr IVPB Q30M [facility] Stop: 07/10/18 10:19 Insulin Human Regular (Novolin R) 0 unit SC Q6 [facility]; Protocol Last Admin: 07/10/18 06:00 Dose: Not Given Morphine Sulfate (Morphine) 2 mg IV Q6 PRN PRN Reason: abdominal pain Last Admin: 07/10/18 06:16 Dose: 2 mg - Labs Labs: 07/10/18 05:58 07/10/18 05:58 PT 14.2 SECONDS (9.7-12.2) H 07/09/18 00:37 INR 1.3 07/09/18 00:37 APTT 28 SECONDS (21-34) 07/09/18 00:37 - Constitutional Appears: Non-toxic, No Acute Distress - Eye Exam Eye Exam: EOMI, PERRL. absent: Nystagmus - ENT Exam ENT Exam: Mucous Membranes Moist - Respiratory Exam Respiratory Exam: Clear to Ausculation Bilateral. absent: Rales, Rhonchi, Wheezes - Cardiovascular Exam Cardiovascular Exam: RRR, +S1, +S2 - GI/Abdominal Exam GI & Abdominal Exam: Soft, Tenderness (epigastric), Normal Bowel Sounds. absent: Distended, Firm, Guarding, Rigid, Organomegaly - Extremities Exam Extremities Exam: Normal Inspection. absent: Pedal Edema - Neurological Exam Neurological Exam: Alert, Awake, Oriented x3 - Psychiatric Exam Psychiatric exam: Normal Affect, Normal Mood - Skin Skin Exam: Dry, Warm Assessment and Plan - Assessment and Plan (Free Text) Assessment: Patient is a 47yo female with PMHx significant for provoked B/L PE in February 2018 currently on Eliquis (for total 6 months), HTN who presented to the ED with abdominal pain -Acute pancreatitis -Abnormal CT imaging of the abdomen - hemorrhagic fluid collection -Chronic microcytic anemia -Prior B/L PE on Eliquis -HTN Plan: -Ongoing pain, improved from yesterday modestly - now with dizziness -Awaiting CTA - evaluate abdominal vasculature for occlusion/extravasation -Continue IVF until patient can tolerate oral intake; advanced to clear liquids for lunch -Unclear etiology of acute pancreatitis in the absence of obvious gallstone disease, EtOH/tobacco use and normal lipid panel -Continue supportive care with analgesia, IV LR and monitor HCT/BUN -Appreciate surgical consultation <Nitin Ta - Last Filed: 07/10/18 13:48> Objective - Vital Signs/Intake and Output Vital Signs (last 24 hours): Temp Pulse Resp BP Pulse Ox 97.3 F L 72 12 124/88 97 07/10/18 12:00 07/10/18 12:00 07/10/18 12:00 07/10/18 11:35 07/10/18 12:00 Intake and Output: 07/10/18 07/10/18 06:59 18:59 Intake Total 1800 800 Output Total 750 950 Balance 1050 -150 - Medications Medications: Current Medications Lactated Ringer's (Lactated Ringer's) 1,000 mls @ 150 mls/hr IV .Q6H40M [facility] Last Admin: 07/10/18 06:07 Dose: 150 mls/hr Morphine Sulfate (Morphine) 2 mg IV Q6 PRN PRN Reason: abdominal pain Last Admin: 07/10/18 06:16 Dose: 2 mg - Labs Labs: 07/10/18 05:58 07/10/18 05:58 PT 14.2 SECONDS (9.7-12.2) H 07/09/18 00:37 INR 1.3 07/09/18 00:37 APTT 28 SECONDS (21-34) 07/09/18 00:37 Attending/Attestation - Attestation I have personally seen and examined this patient.: Yes I have fully participated in the care of the patient.: Yes I have reviewed all pertinent clinical information, including history, physical exam and plan: Yes Notes (Text): 07/10/18 13:46 I have seen and examined patient with GI fellow. No acute events overnight, she is seen resting in bed comfortably. She admits to mild ongoing epigastric abdominal pain but denies nausea, vomiting, fever/chills. Tolerating PO liquids without difficulty. Review of vitals from today are normal. PE on eliquis (held) Abdominal pain - possible hemorrhagic pancreatitis of unclear etiology HTN - Liquid diet as tolerated - Continue with IVF hydration, supportive care - Awaiting results from CT angiography for further evaluation - Follow up surgical recommendations - Will continue to monitor patient clinical course
[2018-07-10] MEDS: Magnesium Sulfate 1 gm in D5W 1 GM/100 ML BAG IVPB SCH ×2 (09:09→09:41)
[2018-07-10] MEDS ORDERED: Potassium Chl 40 mEq in D5-1/2 1,000 ML IV SCH (09:30)
[2018-07-10] MEDS ORDERED: HYDROmorphone 1 mg/ml ISec IVP STA (10:30)
--- NOTE | 2018-07-10 10:52 | CARD ---
APPROVED REPORT Date of service: 07/09/2018 EKG Measurement Heart [id number] <Conclusion> Sinus bradycardia Otherwise normal ECG
[2018-07-10] MEDS ORDERED: Iodixanol 320 MG/ML 100 ML BOTTLE IV ONE (12:47)
--- NOTE | 2018-07-10 14:19 | CT ---
Date of service: 07/10/2018 CTA abdomen Indication: abdominal pain; R/O thombotic disease Comparison: CT abdomen and pelvis with contrast performed 07/08/18 Technique: Contrast dose: 100 mL Visipaque 320 Total exam DLP: 754.22 mGy cm Axial computed tomographic angiogram images of the abdomen and pelvis were performed after bolus administration of nonionic intravenous contrast. Multiplanar, 3D (maximum intensity projection) reconstructions of the aorta were created in the coronal and sagittal planes by the registered radiologic technologist. This CT exam was performed using 1 or more of the falling dose reduction techniques: Automated exposure control, adjustment of the MAA and/or kV according to patient size, and/or use of iterative reconstruction technique. Findings: Minimal right basilar atelectasis. No visible pleural effusion or pneumothorax. There is normal course and contour of the abdominal aorta and common iliac arteries. The celiac artery origin is widely patent. The superior mesenteric artery origin is widely patent. The inferior mesenteric artery origin is patent. Bilateral renal arteries both appear widely patent. Small perihepatic ascites. Hypoattenuation of the liver compatible with hepatic steatosis. Extensive peripancreatic inflammatory changes in fluid as well as pancreatic edema re-identified consistent with hemorrhagic pancreatitis. Hemorrhagic fluid is noted within the right anterior pararenal space and inferior to the pancreatic head. Evidence of small hemorrhagic fluid re-identified in the pelvis. High density material noted within the gallbladder presumably vicarious excretion of contrast from prior contrast enhanced CT performed 07/08/18. The spleen and adrenal glands appear unremarkable. The kidneys enhance symmetrically. No hydronephrosis or obstructing renal calculus. 5 cm left renal cyst. No bulky adenopathy identified. Visualized bowel loops appear within normal limits of caliber without evidence of obstruction. The appendix appears within normal limits of caliber. Oral contrast noted within the appendiceal lumen. No secondary signs of acute appendicitis. No definite free air. Urinary bladder appears unremarkable. The uterus is present with suspected fibroid. Sclerosis bilateral sacroiliac joints, predominant iliac sides. Impression: Findings as above appear consistent with hemorrhagic pancreatitis. Hemorrhagic fluid evident within the right para renal space, inferior to the pancreatic head, as well as in the pelvis. Perihepatic ascites noted. No evidence of aortic dissection or aneurysmal dilatation. Please note that examination was performed as a CTA and venous structures cannot be assessed, including superior mesenteric vein of which a question was raised regarding partial thrombus or admixture/timing of study acquisition on prior CT of the abdomen and pelvis on 07/08/18. Additional findings as above.
[2018-07-10] MEDS ORDERED: Metoprolol 1 mg/ml Inj IVP ONE (16:00)
--- NOTE | 2018-07-10 16:58 | CP.PCM.PN ---
Subjective - Date & Time of Evaluation Date of Evaluation: 07/10/18 Time of Evaluation: 16:55 - Subjective Subjective: Patient seen and examined; no acute distress Mild abdominal pain; denies n/v Consultation notes reviewed; Labs noted Objective - Vital Signs/Intake and Output Vital Signs (last 24 hours): Temp Pulse Resp BP Pulse Ox 97.3 F L 88 15 151/97 H 100 07/10/18 12:00 07/10/18 16:00 07/10/18 16:00 07/10/18 15:48 07/10/18 16:00 Intake and Output: 07/10/18 07/10/18 06:59 18:59 Intake Total 1800 1300 Output Total 750 1550 Balance 1050 -250 - Medications Medications: Current Medications Diltiazem HCl (Cardizem) 120 mg PO DAILY [facility] Lactated Ringer's (Lactated Ringer's) 1,000 mls @ 150 mls/hr IV .Q6H40M [facility] Last Admin: 07/10/18 06:07 Dose: 150 mls/hr Morphine Sulfate (Morphine) 2 mg IV Q6 PRN PRN Reason: abdominal pain Last Admin: 07/10/18 06:16 Dose: 2 mg Pantoprazole Sodium (Protonix Inj) 40 mg IVP DAILY [facility] Last Admin: 07/10/18 16:02 Dose: 40 mg - Labs Labs: 07/10/18 05:58 07/10/18 05:58 PT 14.2 SECONDS (9.7-12.2) H 07/09/18 00:37 INR 1.3 07/09/18 00:37 APTT 28 SECONDS (21-34) 07/09/18 00:37 - Constitutional Appears: No Acute Distress - Head Exam Head Exam: ATRAUMATIC - Eye Exam Eye Exam: EOMI Pupil Exam: PERRL - ENT Exam ENT Exam: Mucous Membranes Moist - Neck Exam Neck Exam: Full ROM - Respiratory Exam Respiratory Exam: NORMAL BREATHING PATTERN - Cardiovascular Exam Cardiovascular Exam: REGULAR RHYTHM - GI/Abdominal Exam GI & Abdominal Exam: Soft Additional comments: mild tenderness - Neurological Exam Neurological Exam: Alert, Awake, CN II-XII Intact - Skin Skin Exam: Normal Color, Warm Assessment and Plan - Assessment and Plan (Free Text) Assessment: Patient is a 47yo female with PMHx significant for provoked B/L PE in February 2018 currently on Eliquis (for total 6 months), HTN who presented to the ED with abdominal pain. -Acute pancreatitis -Abnormal CT imaging of the abdomen - hemorrhagic fluid collection -Chronic microcytic anemia -Prior B/L PE on Eliquis -HTN Plan: -Ongoing pain, improved from yesterday modestly - mild dizziness -Awaiting CTA - evaluate abdominal vasculature for occlusion/extravasation -Continue IVF until patient can tolerate oral intake; advanced to clear liquids for lunch -Unclear etiology of acute pancreatitis in the absence of obvious gallstone disease, EtOH/tobacco use and normal lipid panel -Continue supportive care with analgesia, IV LR and monitor HCT/BUN -Appreciate surgical consultation -Continue to monitor H&H and hemodynamics -Pain medication prn
[2018-07-10] MEDS: diltiaZEM 120 mg/24 Hours CD Cap PO SCH (17:35)
--- NOTE | 2018-07-10 17:51 | CP.PCM.CON ---
History of Present Illness - History of Present Illness History of Present Illness: Román Wheatley PGY1 Cardio consult note for Dr Santamaria Pt is a 47 yo female with a PMH of HTN, iron deficiency anemia, and PE on Eliquis, who presents complainig of abdominal pain which started yesterday. Pt states that the pain radiates to her back and has gradually gotten worse over the past day. Pt states she has had one episode of vomiting and also associate nausea. Pt reports palpitations in the past for about 1 year. Pt states she has also experienced dizziness and SOB. She states that a lack of sleep will typically make the palpitations worse. Pt reports that when she vomits, she experiences the palpitations. She states she experiences the palpitations weekly and that they last about 5 mins. Pt reports recent stress in her life. Pt denies a family history of heart problems. A 12 point ROS was obtained and added to the HPI where appropriate. Past Patient History - Infectious Disease Hx of Infectious Diseases: None - Tetanus Immunizations Tetanus Immunization: Unknown - Past Medical History & Family History Past Medical History?: Yes - Past Social History Smoking Status: Never Smoked - CARDIAC Hx Cardiac Disorders: Yes Hx Hypertension: Yes - PULMONARY Hx Respiratory Disorders: Yes Hx Pulmonary Embolism: Yes - NEUROLOGICAL Hx Neurological Disorder: No - HEENT Hx HEENT Problems: Yes Other/Comment: WEARS GLASSES FOR READING - RENAL Hx Chronic Kidney Disease: No - ENDOCRINE/METABOLIC Hx Endocrine Disorders: No - HEMATOLOGICAL/ONCOLOGICAL Hx Blood Disorders: Yes Hx Anemia: Yes (on iron) - INTEGUMENTARY Hx Dermatological Problems: No - MUSCULOSKELETAL/RHEUMATOLOGICAL Hx Musculoskeletal Disorders: No Hx Falls: No - GASTROINTESTINAL Hx Gastrointestinal Disorders: No - GENITOURINARY/GYNECOLOGICAL Hx Genitourinary Disorders: Yes Hx Reproductive Disorders: Yes (uTERINE FIBROIDS) Other/Comment: ectopic - PSYCHIATRIC Hx Psychophysiologic Disorder: No - SURGICAL HISTORY Hx Surgeries: Yes Other/Comment: ectopic - ANESTHESIA Hx Anesthesia: Yes Hx Anesthesia Reactions: No Hx Malignant Hyperthermia: No Has any member of the family had a problem w/ anesthesia?: No Meds Home Medications: Home Medication List Medication Instructions Recorded Confirmed Type Ondansetron ODT [Zofran ODT] 1 odt PO BID PRN #6 odt 07/08/18 Rx traMADol/Acetaminophen [Ultracet 1 tab PO Q6 #14 tab 07/08/18 Rx 325 MG-37.5 MG] Allergies/Adverse Reactions: Allergies Allergy/AdvReac Type Severity Reaction Status Date / Time No Known Allergies Allergy Verified 07/08/18 17:36 - Medications Medications: Current Medications Diltiazem HCl (Cardizem Cd) 120 mg PO DAILY [facility] Last Admin: 07/10/18 17:35 Dose: 120 mg Lactated Ringer's (Lactated Ringer's) 1,000 mls @ 150 mls/hr IV .Q6H40M [facility] Last Admin: 07/10/18 12:00 Dose: 150 mls/hr Morphine Sulfate (Morphine) 2 mg IV Q6 PRN PRN Reason: abdominal pain Last Admin: 07/10/18 06:16 Dose: 2 mg Pantoprazole Sodium (Protonix Inj) 40 mg IVP DAILY [facility] Last Admin: 07/10/18 16:02 Dose: 40 mg Physical Exam - Constitutional Appears: No Acute Distress - Head Exam Head Exam: ATRAUMATIC, NORMOCEPHALIC - Eye Exam Eye Exam: EOMI, Normal appearance - ENT Exam ENT Exam: Mucous Membranes Moist, Normal Exam - Neck Exam Neck exam: Positive for: Full Rom - Respiratory Exam Respiratory Exam: Clear to Auscultation Bilateral, NORMAL BREATHING PATTERN. absent: Accessory Muscle Use - Cardiovascular Exam Cardiovascular Exam: Tachycardia, REGULAR RHYTHM, +S1, +S2. absent: Diastolic murmur, Systolic Murmur - GI/Abdominal Exam GI & Abdominal Exam: Normal Bowel Sounds, Soft - Extremities Exam Extremities exam: Positive for: full ROM, pedal pulses present. Negative for: calf tenderness, pedal edema, tenderness - Neurological Exam Neurological exam: Alert - Psychiatric Exam Psychiatric exam: Normal Affect, Normal Mood - Skin Skin Exam: Dry, Normal Color, Warm Results - Vital Signs Recent Vital Signs: Last Vital Signs Temp 97.9 F 07/10/18 16:00 Pulse 88 07/10/18 16:00 Resp 15 07/10/18 16:00 BP 151/97 H 07/10/18 15:48 Pulse Ox 100 07/10/18 16:00 - Labs Result Diagrams: 07/10/18 05:58 07/10/18 05:58 Labs: Laboratory Results - last 24 hr 07/09/18 07/09/18 07/10/18 16:53 23:40 05:05 WBC RBC Hgb Hct MCV MCH MCHC RDW Plt Count MPV Neut % (Auto) Lymph % (Auto) [place] % (Auto) Eos % (Auto) Baso % (Auto) Neut # (Auto) Lymph # (Auto) [place] # (Auto) Eos # (Auto) Baso # (Auto) D-Dimer, Quantitative Sodium 138 Potassium 3.6 Chloride 106 Carbon Dioxide 25 Anion Gap 11 BUN 8 Creatinine 0.6 L Est GFR ( Amer) > 60 Est GFR (Non-Af Amer) > 60 POC Glucose (mg/dL) 84 96 Random Glucose 87 Calcium 8.3 L Phosphorus Magnesium Total Bilirubin 0.5 AST 18 ALT 18 Alkaline Phosphatase 61 Total Protein 6.1 L Albumin 3.4 L Globulin 3.7 Albumin/Globulin Ratio 0.9 L 07/10/18 07/10/18 07/10/18 05:58 05:58 11:41 WBC 4.5 L RBC 3.74 L Hgb 8.8 L Hct 27.9 L MCV 74.5 L MCH 23.4 L MCHC 31.5 L RDW 21.7 H Plt Count 256 MPV 8.7 Neut % (Auto) 53.9 Lymph % (Auto) 33.5 [place] % (Auto) 10.0 Eos % (Auto) 2.2 Baso % (Auto) 0.4 Neut # (Auto) 2.4 Lymph # (Auto) 1.5 [place] # (Auto) 0.5 Eos # (Auto) 0.1 Baso # (Auto) 0.0 D-Dimer, Quantitative Sodium 135 Potassium 3.5 L Chloride 103 Carbon Dioxide 26 Anion Gap 10 BUN 7 Creatinine 0.6 L Est GFR ( Amer) > 60 Est GFR (Non-Af Amer) > 60 POC Glucose (mg/dL) 144 H Random Glucose 77 Calcium 7.9 L Phosphorus 3.0 Magnesium 1.6 Total Bilirubin 0.3 AST 12 L D ALT 18 Alkaline Phosphatase 56 Total Protein 5.5 L Albumin 3.0 L Globulin 2.6 Albumin/Globulin Ratio 1.2 07/10/18 12:01 WBC RBC Hgb Hct MCV MCH MCHC RDW Plt Count MPV Neut % (Auto) Lymph % (Auto) [place] % (Auto) Eos % (Auto) Baso % (Auto) Neut # (Auto) Lymph # (Auto) [place] # (Auto) Eos # (Auto) Baso # (Auto) D-Dimer, Quantitative < 200 Sodium Potassium Chloride Carbon Dioxide Anion Gap BUN Creatinine Est GFR ( Amer) Est GFR (Non-Af Amer) POC Glucose (mg/dL) Random Glucose Calcium Phosphorus Magnesium Total Bilirubin AST ALT Alkaline Phosphatase Total Protein Albumin Globulin Albumin/Globulin Ratio Assessment & Plan - Assessment and Plan (Free Text) Assessment: SVT PE on Eliquis hemorrhagic/ necrotizing panceatitis HTN iron deficiency anemia Plan: Hemorrhagic pancreatitis Calcium channel mediated SVT Troponin negative Hgb 8.8 HA1C follow up TSH follow up ECHO follow up medications start cardizem 120mg for SVT Pt seen, examined, assessment and plan discussed with Dr Rosalio Wheatley PGY1, Internal Medicine Resident - Date & Time Date: 07/10/18 Time: 17:53
[2018-07-11 05:56] LABS: BASO % 0.2 % (0.0-2.0); EOS % 0.4 % (0.0-4.0); HEMOGLOBIN 9.4 g/dL (11.0-16.0); LYMPH # 1.5 K/uL (1.0-4.3); MEAN CELL VOLUME 75.1 fL (81.0-99.0); MEAN CORPUSCULAR HEMOGLOBIN 23.4 pg (27.0-31.0); MEAN CORPUSCULAR HGB CONC 31.1 g/dL (33.0-37.0); MEAN PLATELET VOLUME 8.5 fL (7.2-11.7); MONO # 0.7 K/uL (0.0-0.8); MONO % 9.9 % (0.0-10.0); NEUT # 4.6 K/uL (1.8-7.0); NEUT % 67.5 % (50.0-75.0); RBC 4.04 Mil/uL (3.80-5.20); RED CELL DISTRIBUTION WIDTH 20.8 % (11.5-14.5); WHITE BLOOD COUNT 6.8 K/uL (4.8-10.8)
[2018-07-11 06:20] LABS: ALB/GLOB RATIO 1.2 (1.0-2.1); ALBUMIN 3.3 g/dL (3.5-5.0); ALT/SGPT 15 U/L (9-52); AST/SGOT 19 U/L (14-36); BLOOD UREA NITROGEN 6 mg/dL (7-17); CALCIUM 8.2 mg/dl (8.6-10.4); GFR NON-AFRICAN AMERICAN > 60
--- NOTE | 2018-07-11 07:15 | CP.PCM.PN ---
<Nilda Marie - Last Filed: 07/11/18 07:12> Subjective - Date & Time of Evaluation Date of Evaluation: 07/11/18 Time of Evaluation: 07:12 - Subjective Subjective: General Surgery Dr. Malik (covering Dr. Saucedo) Pt S&E @bedside. yesterday, pt w/ multiple episodes of vomiting. pt in and out of afib w/ RVR during episodes. pt started on PO cardizem. pt has had no further episodes N/V or afib since PO cardizem. No acute events overnight. pt reports RM this AM. abd pain slightly improved. pt denies F/C, N/V, D/C. (+)flatus, (-)BM. urinating freely. Objective - Vital Signs/Intake and Output Vital Signs (last 24 hours): Temp Pulse Resp BP Pulse Ox 98.5 F 73 16 117/76 99 07/11/18 04:00 07/11/18 04:00 07/11/18 04:00 07/11/18 04:00 07/11/18 04:00 Intake and Output: 07/11/18 07/11/18 06:59 18:59 Intake Total 1500 Output Total 1450 Balance 50 - Medications Medications: Current Medications Diltiazem HCl (Cardizem Cd) 120 mg PO DAILY [facility] Last Admin: 07/10/18 17:35 Dose: 120 mg Lactated Ringer's (Lactated Ringer's) 1,000 mls @ 150 mls/hr IV .[id number] [facility] Last Admin: 07/10/18 23:45 Dose: 150 mls/hr Morphine Sulfate (Morphine) 2 mg IV Q6 PRN PRN Reason: abdominal pain Last Admin: 07/10/18 06:16 Dose: 2 mg Pantoprazole Sodium (Protonix Inj) 40 mg IVP DAILY [facility] Last Admin: 07/10/18 16:02 Dose: 40 mg - Labs Labs: 07/11/18 05:47 07/11/18 05:47 PT 14.2 SECONDS (9.7-12.2) H 07/09/18 00:37 INR 1.3 07/09/18 00:37 APTT 28 SECONDS (21-34) 07/09/18 00:37 - Constitutional Appears: Non-toxic, No Acute Distress - Head Exam Head Exam: NORMAL INSPECTION - Eye Exam Eye Exam: Normal appearance - ENT Exam ENT Exam: Mucous Membranes Moist - Respiratory Exam Respiratory Exam: NORMAL BREATHING PATTERN. absent: Accessory Muscle Use, Respiratory Distress - Cardiovascular Exam Cardiovascular Exam: REGULAR RHYTHM. absent: Bradycardia, Tachycardia - GI/Abdominal Exam GI & Abdominal Exam: Distended (mild), Soft, Tenderness (TTP epigastric, RUQ). absent: Firm, Guarding, Rigid - Extremities Exam Extremities Exam: Normal Inspection - Neurological Exam Neurological Exam: Alert, Awake, Oriented x3 - Psychiatric Exam Psychiatric exam: Normal Affect, Normal Mood - Skin Skin Exam: Dry, Intact, Normal Color, Warm - Additional Findings Additional findings: (-)Rosalinda Lobato Fox sign Assessment and Plan - Assessment and Plan (Free Text) Assessment: 47 y/o F w/ hemorrhagic pancreatitis, confirmed on CTA Abd&Pelvis Plan: - Hgb stable @9.4 (8.8) - CTA --> confirmed hemorrhagic pancreatitis w/o extravasation - cont pain management - bowel regimen - GI following, f/u recs - Strict I&O - encourage OOB to chair/Amb Will discuss w/ Dr. Malik (covering Dr. Saucedo) Nilda Marie DO PGY3 <Blas Malik - Last Filed: 07/12/18 16:37> Objective - Vital Signs/Intake and Output Vital Signs (last 24 hours): Temp Pulse Resp BP Pulse Ox 98.8 F 85 16 133/88 100 07/12/18 16:00 07/12/18 16:00 07/12/18 16:00 07/12/18 16:00 07/12/18 16:00 Intake and Output: 07/12/18 07/12/18 06:59 18:59 Intake Total 1170 1235 Output Total 950 650 Balance 220 585 - Medications Medications: Current Medications Diltiazem HCl (Cardizem Cd) 120 mg PO DAILY [facility] Last Admin: 07/12/18 09:13 Dose: 120 mg Lactated Ringer's (Lactated Ringer's) 1,000 mls @ 75 mls/hr IV .[id number] [facility] Last Admin: 07/12/18 11:09 Dose: 75 mls/hr Piperacillin Sod/Tazobactam (Sod 3.375 gm/ Sodium Chloride) 100 mls @ 200 mls/hr IVPB Q6H [facility]; Protocol Last Admin: 07/12/18 11:52 Dose: 200 mls/hr Morphine Sulfate (Morphine) 2 mg IV Q6 PRN PRN Reason: abdominal pain Last Admin: 07/10/18 06:16 Dose: 2 mg Pantoprazole Sodium (Protonix Inj) 40 mg IVP DAILY [facility] Last Admin: 07/12/18 09:14 Dose: 40 mg - Labs Labs: 07/12/18 06:07 07/12/18 06:07 PT 14.2 SECONDS (9.7-12.2) H 07/09/18 00:37 INR 1.3 07/09/18 00:37 APTT 28 SECONDS (21-34) 07/09/18 00:37 Attending/Attestation - Attestation I have personally seen and examined this patient.: Yes I have fully participated in the care of the patient.: Yes I have reviewed all pertinent clinical information, including history, physical exam and plan: Yes Notes (Text): Pt was seen and examined at bedside Agree with above note and assessment Pt has mild abdominal pain and feeling better Abdomen :Soft, Mild tender, Non distended C/w IV antibiotics c.w current mx We will f.u No acute general surgical intervention required at present Plan d.w pt in detail. Risk and benefit explained in detail.
--- NOTE | 2018-07-11 08:48 | CP.PCM.PN ---
Subjective - Date & Time of Evaluation Date of Evaluation: 07/11/18 Time of Evaluation: 08:44 - Subjective Subjective: I have seen and examined patient. No acute events overnight, she is seen resting in bed comfortably. She reports ongoing mild epigastric abdominal pain but is in good spirits and requesting to go home. She had a few episodes of non-bloody emesis along with headache yesterday which have resolved. She is tolerating PO liquids without difficulty. Review of vitals from today are normal. 12 point review of systems performed, negative aside from mentioned above. Objective - Vital Signs/Intake and Output Vital Signs (last 24 hours): Temp Pulse Resp BP Pulse Ox 98.5 F 73 16 117/76 99 07/11/18 04:00 07/11/18 04:00 07/11/18 04:00 07/11/18 04:00 07/11/18 04:00 Intake and Output: 07/11/18 07/11/18 06:59 18:59 Intake Total 1500 Output Total 1450 Balance 50 - Medications Medications: Current Medications Diltiazem HCl (Cardizem Cd) 120 mg PO DAILY [facility] Last Admin: 07/10/18 17:35 Dose: 120 mg Lactated Ringer's (Lactated Ringer's) 1,000 mls @ 150 mls/hr IV .Q6H40M [facility] Last Admin: 07/10/18 23:45 Dose: 150 mls/hr Morphine Sulfate (Morphine) 2 mg IV Q6 PRN PRN Reason: abdominal pain Last Admin: 07/10/18 06:16 Dose: 2 mg Pantoprazole Sodium (Protonix Inj) 40 mg IVP DAILY [facility] Last Admin: 07/10/18 16:02 Dose: 40 mg - Labs Labs: 07/11/18 05:47 07/11/18 05:47 PT 14.2 SECONDS (9.7-12.2) H 07/09/18 00:37 INR 1.3 07/09/18 00:37 APTT 28 SECONDS (21-34) 07/09/18 00:37 - Constitutional Appears: Non-toxic, No Acute Distress - Head Exam Head Exam: NORMAL INSPECTION - Eye Exam Eye Exam: EOMI, Normal appearance - ENT Exam ENT Exam: Mucous Membranes Moist - Respiratory Exam Respiratory Exam: Clear to Ausculation Bilateral - Cardiovascular Exam Cardiovascular Exam: +S1, +S2 - GI/Abdominal Exam GI & Abdominal Exam: Soft, Tenderness, Normal Bowel Sounds Additional comments: mild epigastric tenderness to palpation, no rebound/guarding - Extremities Exam Extremities Exam: Normal Inspection - Skin Skin Exam: Dry, Intact, Normal Color, Warm Assessment and Plan - Assessment and Plan (Free Text) Assessment: PE on eliquis HTN Abdominal pain - CT angio reviewed by me showing features consistent with hemorrhagic pancreatitis, etiology remains unclear Plan: - Advance diet slowly as tolerated - Continue with IVF hydration, supportive care - Obtain IGG4 - Follow up surgical recommendations - Will continue to monitor patient clinical course
[2018-07-11] MEDS: Lactated Ringer's 1,000 ML IV SCH ×4 (09:45→22:58)
[2018-07-11] MEDS: Potassium Chloride 20 mEq ER Tab PO SCH ×3 (09:54→21:10)
[2018-07-11] MEDS: diltiaZEM 120 mg/24 Hours CD Cap PO SCH (09:55)
--- NOTE | 2018-07-11 11:03 | CP.PCM.PN ---
Subjective - Date & Time of Evaluation Date of Evaluation: 07/11/18 Time of Evaluation: 11:00 - Subjective Subjective: Patient was not in any acute distress this morning The patient reported some mild tenderness in the epigastric area, otherwise denied chest pain, denied shortness of breath, denied palpitations As mentioned previously she has a history of a PE in February 2018 and has been on Eliquis and came to the ED with abdominal pain radiating to her back. CTA showed she has a hemmorrhagic pancreatitis. There was also noted some hemmoragic fluid in the right para renal space near the pancrease as well Objective - Vital Signs/Intake and Output Vital Signs (last 24 hours): Temp Pulse Resp BP Pulse Ox 98.5 F 73 16 117/76 99 07/11/18 04:00 07/11/18 04:00 07/11/18 04:00 07/11/18 04:00 07/11/18 04:00 Intake and Output: 07/11/18 07/11/18 06:59 18:59 Intake Total 1500 Output Total 1450 Balance 50 - Medications Medications: Current Medications Diltiazem HCl (Cardizem Cd) 120 mg PO DAILY [facility] Last Admin: 07/11/18 09:55 Dose: 120 mg Lactated Ringer's (Lactated Ringer's) 1,000 mls @ 75 mls/hr IV .[id number] [facility] Last Admin: 07/11/18 09:56 Dose: 75 mls/hr Morphine Sulfate (Morphine) 2 mg IV Q6 PRN PRN Reason: abdominal pain Last Admin: 07/10/18 06:16 Dose: 2 mg Pantoprazole Sodium (Protonix Inj) 40 mg IVP DAILY [facility] Last Admin: 07/11/18 09:24 Dose: 40 mg Potassium Chloride (K-Dur 20 Meq Er Tab) 40 meq PO Q6H [facility] Stop: 07/11/18 21:46 Last Admin: 07/11/18 09:54 Dose: 40 meq - Labs Labs: 07/11/18 05:47 07/11/18 05:47 PT 14.2 SECONDS (9.7-12.2) H 07/09/18 00:37 INR 1.3 07/09/18 00:37 APTT 28 SECONDS (21-34) 07/09/18 00:37 - Constitutional Appears: No Acute Distress - Head Exam Head Exam: NORMAL INSPECTION, NORMOCEPHALIC - Eye Exam Eye Exam: EOMI - ENT Exam ENT Exam: Mucous Membranes Moist - Respiratory Exam Respiratory Exam: Clear to Ausculation Bilateral, NORMAL BREATHING PATTERN - Cardiovascular Exam Cardiovascular Exam: REGULAR RHYTHM - GI/Abdominal Exam GI & Abdominal Exam: Soft, Tenderness. absent: Firm, Guarding, Rigid - Neurological Exam Neurological Exam: Alert, Awake, Oriented x3 - Psychiatric Exam Psychiatric exam: Normal Affect, Normal Mood - Skin Skin Exam: Normal Color, Warm Assessment and Plan - Assessment and Plan (Free Text) Assessment: Hemmoragic Pancreatitis: Currently Hgb is 9.8, down from 11 on admission. Continue to monitor and if need to transfuse PRBCs CTA showing hemmoragic pancreatitis. She was on Eliquis for history of PE Currently IVF and CLD, advance diet as tolerated Pulmonary embolism February 2018 Currently not short of breath, denying chest pain, she has been on Eliquis
[2018-07-11] MEDS: Piperacillin/Tazobact 3.375 GM in Sodium Chloride 100 ML IVPB SCH ×2 (12:19→17:36)
--- NOTE | 2018-07-11 12:41 | CP.PCM.PN ---
Subjective - Date & Time of Evaluation Date of Evaluation: 07/11/18 Time of Evaluation: 10:00 - Subjective Subjective: PAtient eating food, toelrating, no nausea vomitting Objective - Vital Signs/Intake and Output Vital Signs (last 24 hours): Temp Pulse Resp BP Pulse Ox 98.8 F 72 15 120/90 100 07/11/18 08:00 07/11/18 11:00 07/11/18 11:00 07/11/18 10:59 07/11/18 11:00 Intake and Output: 07/11/18 07/11/18 06:59 18:59 Intake Total 1500 960 Output Total 1450 300 Balance 50 660 - Medications Medications: Current Medications Diltiazem HCl (Cardizem Cd) 120 mg PO DAILY [facility] Last Admin: 07/11/18 09:55 Dose: 120 mg Lactated Ringer's (Lactated Ringer's) 1,000 mls @ 75 mls/hr IV .[id number] [facility] Last Admin: 07/11/18 09:56 Dose: 75 mls/hr Piperacillin Sod/Tazobactam (Sod 3.375 gm/ Sodium Chloride) 100 mls @ 200 mls/hr IVPB Q6H [facility]; Protocol Last Admin: 07/11/18 12:19 Dose: 200 mls/hr Morphine Sulfate (Morphine) 2 mg IV Q6 PRN PRN Reason: abdominal pain Last Admin: 07/10/18 06:16 Dose: 2 mg Pantoprazole Sodium (Protonix Inj) 40 mg IVP DAILY [facility] Last Admin: 07/11/18 09:24 Dose: 40 mg Potassium Chloride (K-Dur 20 Meq Er Tab) 40 meq PO Q6H [facility] Stop: 07/11/18 21:46 Last Admin: 07/11/18 09:54 Dose: 40 meq - Labs Labs: 07/11/18 05:47 07/11/18 05:47 PT 14.2 SECONDS (9.7-12.2) H 07/09/18 00:37 INR 1.3 07/09/18 00:37 APTT 28 SECONDS (21-34) 07/09/18 00:37 - Constitutional Appears: Well, Non-toxic - Head Exam Head Exam: ATRAUMATIC, NORMAL INSPECTION, NORMOCEPHALIC - Eye Exam Eye Exam: PERRL - ENT Exam ENT Exam: Mucous Membranes Moist - Neck Exam Neck Exam: Full ROM - Respiratory Exam Respiratory Exam: NORMAL BREATHING PATTERN - Cardiovascular Exam Cardiovascular Exam: REGULAR RHYTHM, +S1, +S2 - GI/Abdominal Exam GI & Abdominal Exam: Soft, Tenderness, Normal Bowel Sounds. absent: Firm, Guarding, Rigid, Diminished Bowel Sounds, Hernia, Hyperactive Bowel Sounds, Hypoactive Bowel Sounds, Organomegaly, Pulsatile Mass, Rebound - Extremities Exam Extremities Exam: Normal Inspection. absent: Pedal Edema Assessment and Plan - Assessment and Plan (Free Text) Assessment: Hemorrahgic Pancreatis: continue gentle hydration with advance diet as per GI -patient remains hemodynamically stable.
--- NOTE | 2018-07-11 23:33 | CARD ---
APPROVED REPORT Date of service: 07/11/2018 EXAM: Two-dimensional and M-mode echocardiogram with Doppler and color Doppler. Other Information Quality : GoodRhythm : INDICATION SVT 2D DIMENSIONS IVSd1.2 (0.7-1.1cm)LVDd3.7 (3.9-5.9cm) LVOT Diameter1.6 (1.8-2.4cm)PWd1.2 (0.7-1.1cm) LVDs2.7 (2.5-4.0cm)FS (%) 27.4 % LVEF (%)54.1 (>50%) M-Mode DIMENSIONS Left Atrium (MM)2.92 (2.5-4.0cm)Aortic Root2.64 (2.2-3.7cm) Aortic Cusp Exc.1.25 (1.5-2.0cm) Mitral Valve MV E Ycqcazgb80.5cm/sMV A Mgocoqhq29.1cm/s TDI Lateral E' Peak V9.39cm/sMedial E' Peak V8.80cm/s Pulmonary Valve PV Peak Xlnvrvhn11.7cm/sPV Peak Grad.2mmHg Tricuspid Valve TR Peak Aaepqnfd103pp/sTR Peak Gr.9jzNmAQOR37byLg LEFT VENTRICLE The left ventricle is normal size. There is normal left ventricular wall thickness. The left ventricular function is normal. The left ventricular ejection fraction is within the normal range. about 65% No regional wall motion abnormalities noted. The left ventricular diastolic function is normal. No left ventricle thrombus noted on this study. There is no ventricular septal defect visualized. There is no left ventricular aneurysm. There is no mass noted in the left ventricle. RIGHT VENTRICLE The right ventricle is normal size. There is normal right ventricular wall thickness. The right ventricular systolic function is normal. ATRIA The left atrium size is normal. The right atrium size is normal. The interatrial septum is intact with no evidence for an atrial septal defect. AORTIC VALVE The aortic valve is normal in structure and function. No aortic regurgitation is present. There is no aortic valvular stenosis. There is no aortic valvular vegetation. MITRAL VALVE The mitral valve is normal in structure and function. There is no evidence of mitral valve prolapse. There is no mitral valve stenosis. There is no mitral valve regurgitation noted. TRICUSPID VALVE The tricuspid valve is normal in structure and function. There is no tricuspid valve regurgitation noted. There is no tricuspid valve prolapse or vegetation. There is no tricuspid valve stenosis. PULMONIC VALVE The pulmonary valve is normal in structure and function. There is no pulmonic valvular regurgitation. There is no pulmonic valvular stenosis. GREAT VESSELS The aortic root is normal in size. The ascending aorta is normal in size. The pulmonary artery is normal. The IVC is normal in size and collapses >50% with inspiration. PERICARDIAL EFFUSION The pericardium appears normal. There is no pleural effusion. <Conclusion> Normal LV systolic function and wall motion. Normal Doppler.
--- NOTE | 2018-07-12 00:01 | CARD ---
APPROVED REPORT Date of service: 07/10/2018 EKG Measurement Heart [id number] <Conclusion> Normal sinus rhythm Normal ECG
[2018-07-12] MEDS: Piperacillin/Tazobact 3.375 GM in Sodium Chloride 100 ML IVPB SCH ×4 (06:00→17:09)
[2018-07-12 06:15] LABS: BASO % 0.4 % (0.0-2.0); EOS # 0.1 K/uL (0.0-0.7); EOS % 1.3 % (0.0-4.0); HEMOGLOBIN 9.7 g/dL (11.0-16.0); LYMPH # 1.3 K/uL (1.0-4.3); MEAN CORPUSCULAR HEMOGLOBIN 24.3 pg (27.0-31.0); MEAN CORPUSCULAR HGB CONC 32.4 g/dL (33.0-37.0); MEAN PLATELET VOLUME 8.2 fL (7.2-11.7); MONO # 0.6 K/uL (0.0-0.8); MONO % 8.8 % (0.0-10.0); NEUT # 5.1 K/uL (1.8-7.0); NEUT % 71.5 % (50.0-75.0); RBC 3.97 Mil/uL (3.80-5.20); RED CELL DISTRIBUTION WIDTH 21.5 % (11.5-14.5); WHITE BLOOD COUNT 7.2 K/uL (4.8-10.8)
[2018-07-12 06:26] LABS: ALB/GLOB RATIO 1.2 (1.0-2.1); ALBUMIN 3.5 g/dL (3.5-5.0); ALT/SGPT 17 U/L (9-52); AST/SGOT 15 U/L (14-36); BLOOD UREA NITROGEN 10 mg/dL (7-17); CALCIUM 8.6 mg/dl (8.6-10.4); GFR NON-AFRICAN AMERICAN > 60
[2018-07-12] MEDS: diltiaZEM 120 mg/24 Hours CD Cap PO SCH (09:13)
--- NOTE | 2018-07-12 10:33 | CP.PCM.PN ---
Subjective - Date & Time of Evaluation Date of Evaluation: 07/12/18 Time of Evaluation: 10:29 - Subjective Subjective: Patient seen and examined. No acute events overnight, she is seen sitting at bedside eating breakfast in good spirits. She denies abdominal pain, nausea, vomiting, fever/chills. Tolerating PO diet without difficulty. She had one bow el movement yesterday. Review of vitals from today are normal. 12 point review of systems performed, negative aside from mentioned above. Objective - Vital Signs/Intake and Output Vital Signs (last 24 hours): Temp Pulse Resp BP Pulse Ox 98.0 F 86 15 133/85 95 07/12/18 08:00 07/12/18 10:00 07/12/18 10:00 07/12/18 09:59 07/12/18 10:00 Intake and Output: 07/12/18 07/12/18 06:59 18:59 Intake Total 1170 360 Output Total 950 Balance 220 360 - Medications Medications: Current Medications Diltiazem HCl (Cardizem Cd) 120 mg PO DAILY [facility] Last Admin: 07/12/18 09:13 Dose: 120 mg Lactated Ringer's (Lactated Ringer's) 1,000 mls @ 75 mls/hr IV .[id number] [facility] Last Admin: 07/11/18 22:58 Dose: Not Given Piperacillin Sod/Tazobactam (Sod 3.375 gm/ Sodium Chloride) 100 mls @ 200 mls/hr IVPB Q6H [facility]; Protocol Last Admin: 07/12/18 06:00 Dose: 200 mls/hr Morphine Sulfate (Morphine) 2 mg IV Q6 PRN PRN Reason: abdominal pain Last Admin: 07/10/18 06:16 Dose: 2 mg Pantoprazole Sodium (Protonix Inj) 40 mg IVP DAILY [facility] Last Admin: 07/12/18 09:14 Dose: 40 mg - Labs Labs: 07/12/18 06:07 07/12/18 06:07 PT 14.2 SECONDS (9.7-12.2) H 07/09/18 00:37 INR 1.3 07/09/18 00:37 APTT 28 SECONDS (21-34) 07/09/18 00:37 - Constitutional Appears: Non-toxic, No Acute Distress - Head Exam Head Exam: NORMAL INSPECTION - Eye Exam Eye Exam: EOMI, Normal appearance - ENT Exam ENT Exam: Mucous Membranes Moist - Respiratory Exam Respiratory Exam: Clear to Ausculation Bilateral - Cardiovascular Exam Cardiovascular Exam: +S1, +S2 - GI/Abdominal Exam GI & Abdominal Exam: Soft, Normal Bowel Sounds Additional comments: non tender to palpation in four quadrants - Extremities Exam Extremities Exam: Normal Inspection - Skin Skin Exam: Dry, Intact, Normal Color, Warm Assessment and Plan - Assessment and Plan (Free Text) Assessment: PE - previously on eliquis Abdominal pain - resolved Acute hemorrhagic pancreatitis of unclear etiology Plan: - Low fat diet as tolerated - H/H stable, continue to monitor - Awaiting IGG4 level - Continue with supportive care - Patient would benefit from repeat abdominal imaging within 4-6 weeks to ensure resolution - No further planned GI intervention, will sign off case. Please reconsult as necessary, thank you.
[2018-07-12] MEDS: Lactated Ringer's 1,000 ML IV SCH ×2 (11:09→17:11)
--- NOTE | 2018-07-12 18:09 | CP.PCM.PN ---
Subjective - Date & Time of Evaluation Date of Evaluation: 07/12/18 Time of Evaluation: 18:00 - Subjective Subjective: Progress note. Attending: Dr. Arevalo Pt seen and examined at bedside. No acute distress. No fevers, chills, vomiting, diarrhea. Objective - Vital Signs/Intake and Output Vital Signs (last 24 hours): Temp Pulse Resp BP Pulse Ox 98.8 F 79 19 127/91 H 100 07/12/18 16:00 07/12/18 17:00 07/12/18 17:00 07/12/18 16:59 07/12/18 17:00 Intake and Output: 07/12/18 07/12/18 06:59 18:59 Intake Total 1170 1490 Output Total 950 650 Balance 220 840 - Medications Medications: Current Medications Diltiazem HCl (Cardizem Cd) 120 mg PO DAILY [facility] Last Admin: 07/12/18 09:13 Dose: 120 mg Lactated Ringer's (Lactated Ringer's) 1,000 mls @ 75 mls/hr IV .[id number] [facility] Last Admin: 07/12/18 17:11 Dose: Not Given Piperacillin Sod/Tazobactam (Sod 3.375 gm/ Sodium Chloride) 100 mls @ 200 mls/hr IVPB Q6H [facility]; Protocol Last Admin: 07/12/18 17:09 Dose: 200 mls/hr Morphine Sulfate (Morphine) 2 mg IV Q6 PRN PRN Reason: abdominal pain Last Admin: 07/10/18 06:16 Dose: 2 mg Pantoprazole Sodium (Protonix Inj) 40 mg IVP DAILY [facility] Last Admin: 07/12/18 09:14 Dose: 40 mg - Labs Labs: 07/12/18 06:07 07/12/18 06:07 PT 14.2 SECONDS (9.7-12.2) H 07/09/18 00:37 INR 1.3 07/09/18 00:37 APTT 28 SECONDS (21-34) 07/09/18 00:37 - Constitutional Appears: Non-toxic, No Acute Distress - Head Exam Head Exam: ATRAUMATIC, NORMAL INSPECTION, NORMOCEPHALIC - Eye Exam Eye Exam: EOMI - ENT Exam ENT Exam: Mucous Membranes Moist - Neck Exam Neck Exam: Full ROM, Normal Inspection - Respiratory Exam Respiratory Exam: NORMAL BREATHING PATTERN. absent: Respiratory Distress - Cardiovascular Exam Cardiovascular Exam: +S1, +S2 - GI/Abdominal Exam GI & Abdominal Exam: Soft, Normal Bowel Sounds. absent: Tenderness - Extremities Exam Extremities Exam: Full ROM, Normal Inspection - Back Exam Back Exam: NORMAL INSPECTION - Neurological Exam Neurological Exam: Alert, Awake, CN II-XII Intact, Oriented x3 - Psychiatric Exam Psychiatric exam: Normal Affect, Normal Mood - Skin Skin Exam: Dry, Intact, Normal Color, Warm Assessment and Plan - Assessment and Plan (Free Text) Assessment: This is a 47 yo female with 1. hx of PE - previously on eliquis 2. Abdominal pain - resolved -Lactated ringer's iv -morphine IV prn for pain -likely secondary to acute hemorrhagic pancreatitis of unclear etiology - Low fat diet as tolerated; pt tolerating diet well - H/H stable, continue to monitor - Awaiting IGG4 level - Continue with supportive care - Patient would benefit from repeat abdominal imaging within 4-6 weeks to ensure resolution - Gi consult. Dr. Ta recs. appreciated -GI has signed off -zosyn IV 3.375 mg q 6 hrs 3. hx of HTN -continue to monitor 5. hx of iron def anemia -continue to monitor -hx of fibroids 6. hematuria -urine culture -shows contamination -repeat 3. GI/DVT -protonix daily discussed with Dr. Arevalo
[2018-07-13] MEDS: Piperacillin/Tazobact 3.375 GM in Sodium Chloride 100 ML IVPB SCH ×3 (00:30→12:05)
[2018-07-13] MEDS: Lactated Ringer's 1,000 ML IV SCH (02:45)
[2018-07-13 06:37] LABS: BASO % 0.3 % (0.0-2.0); EOS # 0.1 K/uL (0.0-0.7); EOS % 0.7 % (0.0-4.0); HEMOGLOBIN 10.1 g/dL (11.0-16.0); LYMPH # 0.9 K/uL (1.0-4.3); LYMPH % 11.4 % (20.0-40.0); MEAN CELL VOLUME 75.6 fL (81.0-99.0); MEAN CORPUSCULAR HEMOGLOBIN 23.6 pg (27.0-31.0); MEAN CORPUSCULAR HGB CONC 31.2 g/dL (33.0-37.0); MEAN PLATELET VOLUME 8.3 fL (7.2-11.7); MONO # 0.7 K/uL (0.0-0.8); MONO % 8.9 % (0.0-10.0); NEUT # 6.5 K/uL (1.8-7.0); NEUT % 78.7 % (50.0-75.0); RBC 4.28 Mil/uL (3.80-5.20); RED CELL DISTRIBUTION WIDTH 22.2 % (11.5-14.5); WHITE BLOOD COUNT 8.2 K/uL (4.8-10.8)
[2018-07-13 06:54] LABS: ALB/GLOB RATIO 1.3 (1.0-2.1); ALBUMIN 3.7 g/dL (3.5-5.0); ALT/SGPT 15 U/L (9-52); AST/SGOT 21 U/L (14-36); BLOOD UREA NITROGEN 15 mg/dL (7-17); CALCIUM 8.7 mg/dl (8.6-10.4); GFR NON-AFRICAN AMERICAN > 60
--- NOTE | 2018-07-13 07:45 | CP.PCM.PN ---
Subjective - Date & Time of Evaluation Date of Evaluation: 07/13/18 Time of Evaluation: 06:00 - Subjective Subjective: Pt seen and examined this morning. Pt reports she still has some mild abdominal pain. Objective - Vital Signs/Intake and Output Vital Signs (last 24 hours): Temp Pulse Resp BP Pulse Ox 98.8 F 76 14 116/81 100 07/13/18 04:00 07/13/18 06:59 07/13/18 06:59 07/13/18 06:59 07/13/18 06:59 Intake and Output: 07/13/18 07/13/18 06:59 18:59 Intake Total 950 75 Output Total 800 Balance 150 75 - Medications Medications: Current Medications Diltiazem HCl (Cardizem Cd) 120 mg PO DAILY [facility] Last Admin: 07/12/18 09:13 Dose: 120 mg Lactated Ringer's (Lactated Ringer's) 1,000 mls @ 75 mls/hr IV .[id number] [facility] Last Admin: 07/13/18 02:45 Dose: 75 mls/hr Piperacillin Sod/Tazobactam (Sod 3.375 gm/ Sodium Chloride) 100 mls @ 200 mls/hr IVPB Q6H [facility]; Protocol Last Admin: 07/13/18 05:45 Dose: 200 mls/hr Morphine Sulfate (Morphine) 2 mg IV Q6 PRN PRN Reason: abdominal pain Last Admin: 07/10/18 06:16 Dose: 2 mg Pantoprazole Sodium (Protonix Inj) 40 mg IVP DAILY [facility] Last Admin: 07/12/18 09:14 Dose: 40 mg - Labs Labs: 07/13/18 06:28 07/13/18 06:28 PT 14.2 SECONDS (9.7-12.2) H 07/09/18 00:37 INR 1.3 07/09/18 00:37 APTT 28 SECONDS (21-34) 07/09/18 00:37 - Constitutional Appears: No Acute Distress - Head Exam Head Exam: ATRAUMATIC, NORMOCEPHALIC - Eye Exam Eye Exam: EOMI - ENT Exam ENT Exam: Mucous Membranes Moist - Neck Exam Neck Exam: Full ROM - Respiratory Exam Respiratory Exam: Clear to Ausculation Bilateral, NORMAL BREATHING PATTERN. absent: Accessory Muscle Use, Respiratory Distress - Cardiovascular Exam Cardiovascular Exam: RRR, +S1, +S2. absent: Diastolic murmur, Murmur - GI/Abdominal Exam GI & Abdominal Exam: Soft - Extremities Exam Extremities Exam: Full ROM. absent: Calf Tenderness, Pedal Edema, Tenderness - Neurological Exam Neurological Exam: Alert, Awake, Oriented x3 - Psychiatric Exam Psychiatric exam: Normal Affect, Normal Mood - Skin Skin Exam: Dry, Normal Color, Warm Assessment and Plan - Assessment and Plan (Free Text) Assessment: SVT PE on Eliquis hemorrhagic/ necrotizing panceatitis HTN iron deficiency anemia Plan: Hemorrhagic pancreatitis Calcium channel mediated SVT Troponin negative Hgb 10.1, HA1C 4.9, TSH 0.60 ECHO 54%, normal doppler medications cardizem 120mg for SVT Pt seen, examined, assessment and plan discussed with Dr Rosalio Wheatley PGY1, Internal Medicine Resident
[2018-07-13] MEDS: diltiaZEM 120 mg/24 Hours CD Cap PO SCH (09:15)
--- NOTE | 2018-07-13 09:42 | CARD ---
APPROVED REPORT Date of service: 07/10/2018 EKG Measurement Heart [id number] [place] [id number] [id number] <Conclusion> Normal sinus rhythm Nonspecific T wave abnormality Prolonged QT Abnormal ECG
--- NOTE | 2018-07-13 10:29 | VASCLAB ---
Date of service: 07/11/2018 PROCEDURE: Lower Extremity Venous Duplex Exam. HISTORY: Pulmonary embolism PRIORS: None. TECHNIQUE: Bilateral common femoral, femoral, popliteal and posterior tibial, peroneal and great saphenous veins were evaluated. Flow was assessed with color Doppler, compressibility, assessment of phasic flow and augmentation response. Report prepared by OMAR Smiley FINDINGS: RIGHT: 1. Common Femoral Vein: 1.1. Compressibility - Fully compressible: Thrombus - None : Flow - Phasic: Augmentation -Normal: Reflux - None. 2. Femoral Vein: 2.1. Compressibility - Fully compressible: Thrombus - None : Flow - Phasic: Augmentation -Normal: Reflux - None. 3. Popliteal Vein: 3.1. Compressibility - Fully compressible: Thrombus - None : Flow - Phasic: Augmentation -Normal: Reflux - None. 4. Posterior Tibial Vein: 4.1. Compressibility - Fully compressible: Thrombus - None: Flow - Phasic: Augmentation -Normal: Reflux - None. 5. Peroneal Vein: 5.1. Compressibility - Fully compressible: Thrombus - None: Flow - Phasic: Augmentation -Normal: Reflux - None. 6. Great Saphenous Vein: 6.1. Compressibility - Fully compressible: Thrombus - None: Flow - Phasic: Augmentation - Normal: Reflux - None. LEFT: 1. Common Femoral Vein: 1.1. Compressibility - Fully compressible: Thrombus - None: Flow - Phasic: Augmentation -Normal: Reflux - None. 2. Femoral Vein: 2.1. Compressibility - Fully compressible: Thrombus - None: Flow - Phasic: Augmentation -Normal: Reflux - None. 3. Popliteal Vein: 3.1. Compressibility - Fully compressible: Thrombus - None : Flow - Phasic: Augmentation -Normal: Reflux - None. 4. Posterior Tibial Vein: 4.1. Compressibility - Fully compressible: Thrombus - None: Flow - Phasic: Augmentation -Normal: Reflux - None. 5. Peroneal Vein: 5.1. Compressibility - Fully compressible: Thrombus - None: Flow - Phasic: Augmentation -Normal: Reflux - None. 6. Great Saphenous Vein: 6.1. Compressibility - Fully compressible: Thrombus - None: Flow - Phasic: Augmentation - Normal: Reflux - None. OTHER FINDINGS: Right: None significant. Left: None significant. IMPRESSION: Right: No evidence of deep or superficial vein thrombosis of the right lower extremity. Normal valve function noted of the right side. Left: No evidence of deep or superficial vein thrombosis of the left lower extremity. Normal valve function noted of the left side.
--- NOTE | 2018-07-13 11:07 | CP.PCM.PN ---
Subjective - Date & Time of Evaluation Date of Evaluation: 07/13/18 Time of Evaluation: 07:00 - Subjective Subjective: GENERAL SURGERY PROGRESS NOTE FOR DR. JUÁREZ (covering for Dr. Saucedo) Patient seen and examined at bedside in the ICU. She denies nausea or vomiting. Reports mild epigastric pain. Tolerating diet. Had BM yesterday. Objective - Vital Signs/Intake and Output Vital Signs (last 24 hours): Temp Pulse Resp BP Pulse Ox 98.3 F 93 H 16 112/77 100 07/13/18 08:00 07/13/18 10:14 07/13/18 10:14 07/13/18 10:14 07/13/18 10:14 Intake and Output: 07/13/18 07/13/18 06:59 18:59 Intake Total 950 350 Output Total 800 Balance 150 350 - Medications Medications: Current Medications Diltiazem HCl (Cardizem Cd) 120 mg PO DAILY [facility] Last Admin: 07/13/18 09:15 Dose: 120 mg Lactated Ringer's (Lactated Ringer's) 1,000 mls @ 75 mls/hr IV .[id number] [facility] Last Admin: 07/13/18 02:45 Dose: 75 mls/hr Piperacillin Sod/Tazobactam (Sod 3.375 gm/ Sodium Chloride) 100 mls @ 200 mls/hr IVPB Q6H [facility]; Protocol Last Admin: 07/13/18 05:45 Dose: 200 mls/hr Morphine Sulfate (Morphine) 2 mg IV Q6 PRN PRN Reason: abdominal pain Last Admin: 07/10/18 06:16 Dose: 2 mg Pantoprazole Sodium (Protonix Inj) 40 mg IVP DAILY [facility] Last Admin: 07/13/18 09:10 Dose: 40 mg - Labs Labs: 07/13/18 06:28 07/13/18 06:28 PT 14.2 SECONDS (9.7-12.2) H 07/09/18 00:37 INR 1.3 07/09/18 00:37 APTT 28 SECONDS (21-34) 07/09/18 00:37 - Constitutional Appears: Non-toxic, No Acute Distress - Eye Exam Eye Exam: EOMI, Normal appearance - Respiratory Exam Respiratory Exam: NORMAL BREATHING PATTERN. absent: Respiratory Distress - Cardiovascular Exam Cardiovascular Exam: +S1, +S2. absent: Tachycardia - GI/Abdominal Exam GI & Abdominal Exam: Soft. absent: Distended, Firm, Guarding, Tenderness, Rebound Additional comments: no cullens/harper oquendo sign - Neurological Exam Neurological Exam: Alert, Awake, Oriented x3 - Psychiatric Exam Psychiatric exam: Normal Affect, Normal Mood - Skin Skin Exam: Dry, Warm Assessment and Plan - Assessment and Plan (Free Text) Assessment: 47yo F with PMHx of HTN, fibroids, PE on Eliquis presents to the ED with ab dominal pain radiating to her back. Found to have possible hemorrhagic pancreatitis on CT - Afebrile, hemodynamically stable - H&H stable - GI recs: repeat abdominal imaging within 4-6 weeks to ensure resolution - No acute surgical intervention necessary - Discussed plan with Dr. Helena Jacob PGY-4
[2018-07-13 12:37] VITALS: BP 121/84; PULSE 83; RESP 14; O2SAT 99
[2018-07-13 12:38] VITALS: TEMP 98.5
[2018-07-13] MEDS ORDERED: Pneumococcal 23-Valent Vaccine IM ONE (12:45)
--- NOTE | 2018-07-13 15:29 | CP.PCM.DIS ---
<Danitza Sullivan - Last Filed: 07/13/18 16:07> Provider - Provider Date of Admission: 07/09/18 01:53 Attending physician: Shamir Almanzar Consults: 07/09/18 01:55 General Surgery Consult Stat Comment: Consulting Provider: Pooja Saucedo Consulting Physician: Pooja Saucedo Reason for Consult: hemmorhagic pancreatitis 07/09/18 05:32 Critical Care Consult Routine Comment: Consulting Provider: Mago Rebolledo Consulting Physician: Mago Rebolledo Reason for Consult: hemmorhagic pancreatitis 07/10/18 14:24 Cardiology Consult Routine Comment: Consulting Provider: Rc Santamaria Consulting Physician: Rc Santamaria Reason for Consult: hx of PE, currently pancreatitis, bouts of SVTs/tachy in 180s Time Spent in preparation of Discharge (in minutes): 70 Hospital Course - Lab Results Lab Results: Micro Results 07/09/18 03:38 Blood-Venous Blood Culture - Preliminary NO GROWTH AFTER 4 DAYS 07/09/18 03:38 Blood-Venous Blood Culture - Preliminary NO GROWTH AFTER 4 DAYS 07/09/18 02:38 Urine Random Urine Culture - Final 10-50,000 CFU/ML. MULTIPLE SPECIES. PROBABLE CONTAMINATION. 07/09/18 03:52 Nose MRSA Culture (Admit) - Final MRSA NOT DETECTED Most Recent Lab Values WBC 8.2 K/uL (4.8-10.8) 07/13/18 06:28 RBC 4.28 Mil/uL (3.80-5.20) 07/13/18 06:28 Hgb 10.1 g/dL (11.0-16.0) L 07/13/18 06:28 Hct 32.4 % (34.0-47.0) L 07/13/18 06:28 MCV 75.6 fL (81.0-99.0) L 07/13/18 06:28 MCH 23.6 pg (27.0-31.0) L 07/13/18 06:28 MCHC 31.2 g/dL (33.0-37.0) L 07/13/18 06:28 RDW 22.2 % (11.5-14.5) H 07/13/18 06:28 Plt Count 318 K/uL (130-400) 07/13/18 06:28 MPV 8.3 fL (7.2-11.7) 07/13/18 06:28 Neut % (Auto) 78.7 % (50.0-75.0) H 07/13/18 06:28 Lymph % (Auto) 11.4 % (20.0-40.0) L 07/13/18 06:28 [place] % (Auto) 8.9 % (0.0-10.0) 07/13/18 06:28 Eos % (Auto) 0.7 % (0.0-4.0) 07/13/18 06:28 Baso % (Auto) 0.3 % (0.0-2.0) 07/13/18: Neut # (Auto) 6.5 K/uL (1.8-7.0) 07/13/18 06:28 Lymph # (Auto) 0.9 K/uL (1.0-4.3) L 07/13/18 06:28 [place] # (Auto) 0.7 K/uL (0.0-0.8) 07/13/18 06:28 Eos # (Auto) 0.1 K/uL (0.0-0.7) 07/13/18 06:28 Baso # (Auto) 0.0 K/uL (0.0-0.2) 07/13/18 06:28 Neutrophils % (Manual) 89 % (50-75) H 07/08/18 18:27 Band Neutrophils % 1 % (0-2) 07/08/18 18:27 Lymphocytes % (Manual) 7 % (20-40) L 07/08/18 18:27 Monocytes % (Manual) 3 % (0-10) 07/08/18 18:27 Platelet Estimate Normal (NORMAL) 07/08/18 18:27 Hypochromasia (manual) Moderate 07/08/18 18:27 Poikilocytosis (manual Slight 07/08/18 18:27 Anisocytosis (manual) Slight 07/08/18 18:27 Microcytosis (manual) Slight 07/08/18 18:27 Target Cells Slight 07/08/18 18:27 [place] Cells Slight 07/08/18 18:27 PT 14.2 SECONDS (9.7-12.2) H 07/09/18 00:37 INR 1.3 07/09/18 00:37 APTT 28 SECONDS (21-34) 07/09/18 00:37 D-Dimer, Quantitative < 200 ng/mlDDU (0-243) 07/10/18 12:01 Sodium 132 mmol/L (132-148) 07/13/18 06:28 Potassium 3.6 mmol/L (3.6-5.2) 07/13/18 06:28 Chloride 100 mmol/L (98-107) 07/13/18 06:28 Carbon Dioxide 26 mmol/L (22-30) 07/13/18 06:28 Anion Gap 10 (10-20) 07/13/18 06:28 BUN 15 mg/dL (7-17) 07/13/18 06:28 Creatinine 0.8 mg/dL (0.7-1.2) 07/13/18 06:28 Est GFR ( Amer) > 60 07/13/18 06:28 Est GFR (Non-Af Amer) > 60 07/13/18 06:28 POC Glucose (mg/dL) 144 mg/dL (65-110) H 07/10/18 11:41 Random Glucose 85 mg/dL (65-105) 07/13/18 06:28 Hemoglobin A1c 4.9 % (4.2-6.5) 07/10/18 19:03 Lactic Acid 1.4 mmol/L (0.7-2.1) 07/09/18 00:37 Calcium 8.7 mg/dl (8.6-10.4) 07/13/18 06:28 Phosphorus 3.9 mg/dL (2.5-4.5) 07/13/18 06:28 Magnesium 1.8 mg/dL (1.6-2.3) 07/13/18 06:28 Total Bilirubin 1.1 mg/dL (0.2-1.3) 07/13/18 06:28 AST 21 U/L (14-36) 07/13/18 06:28 ALT 15 U/L (9-52) 07/13/18 06:28 Alkaline Phosphatase 62 U/L (38-126) 07/13/18 06:28 Total Creatine Kinase 61 U/L (30-135) 07/09/18 08:24 CK-MB (Mass) 0.37 ng/mL (0.0-3.38) 07/09/18 08:24 Troponin I < 0.0120 ng/mL (0.00-0.120) 07/09/18 08:24 Total Protein 6.5 g/dL (6.3-8.3) 07/13/18 06:28 Albumin 3.7 g/dL (3.5-5.0) 07/13/18 06:28 Globulin 2.8 gm/dL (2.2-3.9) 07/13/18 06:28 Albumin/Globulin Ratio 1.3 (1.0-2.1) 07/13/18 06:28 Triglycerides 43 mg/dL (0-149) D 07/09/18 08:24 Cholesterol 129 mg/dL (0-199) 07/09/18 08:24 LDL Cholesterol Direct 77 mg/dL (0-129) 07/09/18 08:24 HDL Cholesterol 50 mg/dL (30-70) 07/09/18 08:24 Amylase 55 U/L (30-110) 07/09/18 05:37 Lipase 28 U/L (23-300) 07/09/18 00:37 TSH 3rd Generation 0.60 mIU/L (0.46-4.68) 07/10/18 19:03 Urine Color Yellow (YELLOW) 07/08/18 18:16 Urine Clarity Hazy (Clear) 07/08/18 18:16 Urine pH 6.0 (5.0-8.0) 07/08/18 18:16 Ur Specific [place] 1.024 (1.003-1.030) 07/08/18 18:16 Urine Protein 1+ mg/dL (NEGATIVE) H 07/08/18 18:16 Urine Glucose (UA) Normal mg/dL (Normal) 07/08/18 18:16 Urine Ketones Trace mg/dL (NEGATIVE) 07/08/18 18:16 Urine Blood 3+ (NEGATIVE) H 07/08/18 18:16 Urine Nitrate Negative (NEGATIVE) 07/08/18 18:16 Urine Bilirubin Negative (NEGATIVE) 07/08/18 18:16 Urine Urobilinogen Normal mg/dL (0.2-1.0) 07/08/18 18:16 Ur Leukocyte Esterase Neg Kumar/uL (Negative) 07/08/18 18:16 Urine WBC (Auto) 2 /hpf (0-5) 07/08/18 18:16 Urine RBC (Auto) 273 /hpf (0-3) H 07/08/18 18:16 Ur Squamous Epith Cells 1 /hpf (0-5) 07/08/18 18:16 Urine Bacteria Rare (<OCC) 07/08/18 18:16 Urine HCG, Qual Negative (NEGATIVE) 07/08/18 18:16 Urine Opiates Screen Positive (NEGATIVE) H 07/09/18 12:16 Urine Methadone Screen Negative (NEGATIVE) 07/09/18 12:16 Ur Barbiturates Screen Negative (NEGATIVE) 07/09/18 12:16 Ur Phencyclidine Scrn Negative (NEGATIVE) 07/09/18 12:16 Ur Amphetamines Screen Negative (NEGATIVE) 07/09/18 12:16 U Benzodiazepines Scrn Negative (NEGATIVE) 07/09/18 12:16 U Oth Cocaine Metabols Negative (NEGATIVE) 07/09/18 12:16 U Cannabinoids Screen Negative (NEGATIVE) 07/09/18 12:16 Blood Type B POSITIVE 07/09/18 02:32 Antibody Screen Negative 07/09/18 02:32 - Hospital Course Hospital Course: Upon Admission: Patient is a 47 yo female with history of HTN, PE, and anemia who presents with abdominal pain. Patient states that the pain started yesterday while at work. Pain is located in her epigastric region. The pain increased in intensity today and now radiates to the back. She also feels like her abdomen is more distended. She vomited once today and admits to nausea. The last time she ate was breakfast. She denies any recent significant weight loss. She is on Eliquis for h/o PE in Feb 2018. She denies any alcohol use. Patient was admitted for pancreatitis. Hospital Course: CT abd/pel showed hemorrhagic pancreatitis. Abdominal US was unremarkable. ECHO had normal EF. GI was consulted and recommended IVF and slowly advancing diet as tolerated. They recommended limiting fat intake. General Surgery was consulted and did not recommend surgical intervention at this time. Patient had episode of SVT that improved with carotid massage. Cardiology was consulted and recommended starting patient on Cardizem. Patient's abdominal pain improved and she was able to tolerate diet. Patient was deemed stable for discharge. Upon Discharge: Patient was deemed stable for discharge with instructions to follow up with primary care within a week and to avoid fatty foods. Patient understood instructions and agree. Discharge Exam - Head Exam Head Exam: ATRAUMATIC, NORMOCEPHALIC - Eye Exam Eye Exam: EOMI, Normal appearance Pupil Exam: NORMAL ACCOMODATION - ENT Exam ENT Exam: Mucous Membranes Moist - Respiratory Exam Respiratory Exam: Clear to PA & Lateral, NORMAL BREATHING PATTERN. absent: Rales, Rhonchi, Wheezes - Cardiovascular Exam Cardiovascular Exam: REGULAR RHYTHM, +S1, +S2. absent: Gallop, Rubs, Systolic Murmur - GI/Abdominal Exam GI & Abdominal Exam: Normal Bowel Sounds, Soft. absent: Distended, Tenderness - Extremities Exam Extremities exam: normal inspection - Neurological Exam Neurological exam: Alert, CN II-XII Intact, Oriented x3 - Psychiatric Exam Psychiatric exam: Normal Affect, Normal Mood - Skin Skin Exam: Normal Color Discharge Plan - Discharge Medications Prescriptions: diltiaZEM CD [Cardizem CD] 120 mg PO DAILY #30 cap Ferrous Sulfate [Feosol] 325 mg PO DAILY #30 tab Lisinopril [Zestril] 5 mg PO DAILY #30 tab Ondansetron ODT [Zofran ODT] 1 odt PO BID PRN #6 odt PRN Reason: Nausea/Vomiting traMADol/Acetaminophen [Ultracet 325 MG-37.5 MG] 1 tab PO Q6 #14 tab - Follow Up Plan Condition: STABLE Disposition: HOME/ ROUTINE Instructions: Pancreatitis (DC), Flank Pain Additional Instructions: Please follow up with your primary care doctor, Dr. Cummings within 1 week. Please call to make an appointment. If you cannot follow up with your primary care doctor, please visit the [facility] here at [facility]. Call [phone] to make an appointment. Please stop taking your eliquis. Please avoid eating foods with a lot of fat (oil, butter, fried food, cheese, ice cream) If symptoms return, please visit the emergency department. Take care and be well. Por favor, mariama un seguimiento con jose mdico de atencin primaria, el Dr. Cummings dentro de 1 semana. Llame al para hacer rosa comfort. Si no puede hacer un seguimiento con jose mdico de atencin primaria, visite la [facility] aqu en [facility]. Llame al [phone] para hacer rosa comfort. Por favor joel de josé miguel jose eliquis. Evite comer alimentos con geovanny grasa (aceite, mantequilla, alimentos fritos, queso, helado) Si los sntomas regresan, por favor visite el departamento de emergencias. Cudate y sintete mo. Referrals: [facility] at [facility] [Outside] <Rolan Arevalo - Last Filed: 07/13/18 17:16> Provider - Provider Date of Admission: 07/09/18 01:53 Attending physician: Shamir Almanzar Consults: 07/09/18 01:55 General Surgery Consult Stat Comment: Consulting Provider: Pooja Saucedo Consulting Physician: Pooja Saucedo Reason for Consult: hemmorhagic pancreatitis 07/09/18 05:32 Critical Care Consult Routine Comment: Consulting Provider: Mago Rebolledo Consulting Physician: Mago Rebolledo Reason for Consult: hemmorhagic pancreatitis 07/10/18 14:24 Cardiology Consult Routine Comment: Consulting Provider: Rc Santamaria Consulting Physician: Rc Santamaria Reason for Consult: hx of PE, currently pancreatitis, bouts of SVTs/tachy in 180s Hospital Course - Lab Results Lab Results: Micro Results 07/09/18 03:38 Blood-Venous Blood Culture - Preliminary NO GROWTH AFTER 4 DAYS 07/09/18 03:38 Blood-Venous Blood Culture - Preliminary NO GROWTH AFTER 4 DAYS 07/09/18 02:38 Urine Random Urine Culture - Final 10-50,000 CFU/ML. MULTIPLE SPECIES. PROBABLE CONTAMINATION. 07/09/18 03:52 Nose MRSA Culture (Admit) - Final MRSA NOT DETECTED Most Recent Lab Values WBC 8.2 K/uL (4.8-10.8) 07/13/18 06:28 RBC 4.28 Mil/uL (3.80-5.20) 07/13/18 06:28 Hgb 10.1 g/dL (11.0-16.0) L 07/13/18 06:28 Hct 32.4 % (34.0-47.0) L 07/13/18 06: MCV 75.6 fL (81.0-99.0) L 07/13/18 06: MCH 23.6 pg (27.0-31.0) L 07/13/18: MCHC 31.2 g/dL (33.0-37.0) L 07/13/18: RDW 22.2 % (11.5-14.5) H 07/13/18: Plt Count 318 K/uL (130-400) 07/13/18: MPV 8.3 fL (7.2-11.7) 07/13/18: Neut % (Auto) 78.7 % (50.0-75.0) H 07/13/18: Lymph % (Auto) 11.4 % (20.0-40.0) L 07/13/18: [place] % (Auto) 8.9 % (0.0-10.0) 07/13/18: Eos % (Auto) 0.7 % (0.0-4.0) 07/13/18: Baso % (Auto) 0.3 % (0.0-2.0) 07/13/18: Neut # (Auto) 6.5 K/uL (1.8-7.0) 07/13/18: Lymph # (Auto) 0.9 K/uL (1.0-4.3) L 07/13/18: [place] # (Auto) 0.7 K/uL (0.0-0.8) 07/13/18: Eos # (Auto) 0.1 K/uL (0.0-0.7) 07/13/18: Baso # (Auto) 0.0 K/uL (0.0-0.2) 07/13/18: Neutrophils % (Manual) 89 % (50-75) H 07/08/18 18: Band Neutrophils % 1 % (0-2) 07/08/18 18: Lymphocytes % (Manual) 7 % (20-40) L 07/08/18 18: Monocytes % (Manual) 3 % (0-10) 07/08/18 18:27 Platelet Estimate Normal (NORMAL) 07/08/18 18:27 Hypochromasia (manual) Moderate 07/08/18 18:27 Poikilocytosis (manual Slight 07/08/18 18:27 Anisocytosis (manual) Slight 07/08/18 18:27 Microcytosis (manual) Slight 07/08/18 18:27 Target Cells Slight 07/08/18 18:27 [place] Cells Slight 07/08/18 18:27 PT 14.2 SECONDS (9.7-12.2) H 07/09/18 00:37 INR 1.3 07/09/18 00:37 APTT 28 SECONDS (21-34) 07/09/18 00:37 D-Dimer, Quantitative < 200 ng/mlDDU (0-243) 07/10/18 12:01 Sodium 132 mmol/L (132-148) 07/13/18 06:28 Potassium 3.6 mmol/L (3.6-5.2) 07/13/18 06:28 Chloride 100 mmol/L (98-107) 07/13/18 06:28 Carbon Dioxide 26 mmol/L (22-30) 07/13/18 06:28 Anion Gap 10 (10-20) 07/13/18 06:28 BUN 15 mg/dL (7-17) 07/13/18 06:28 Creatinine 0.8 mg/dL (0.7-1.2) 07/13/18 06:28 Est GFR ( Amer) > 60 07/13/18 06:28 Est GFR (Non-Af Amer) > 60 07/13/18 06:28 POC Glucose (mg/dL) 144 mg/dL (65-110) H 07/10/18 11:41 Random Glucose 85 mg/dL (65-105) 07/13/18 06:28 Hemoglobin A1c 4.9 % (4.2-6.5) 07/10/18 19:03 Lactic Acid 1.4 mmol/L (0.7-2.1) 07/09/18 00:37 Calcium 8.7 mg/dl (8.6-10.4) 07/13/18 06:28 Phosphorus 3.9 mg/dL (2.5-4.5) 07/13/18 06:28 Magnesium 1.8 mg/dL (1.6-2.3) 07/13/18 06:28 Total Bilirubin 1.1 mg/dL (0.2-1.3) 07/13/18 06:28 AST 21 U/L (14-36) 07/13/18 06:28 ALT 15 U/L (9-52) 07/13/18 06:28 Alkaline Phosphatase 62 U/L (38-126) 07/13/18 06:28 Total Creatine Kinase 61 U/L (30-135) 07/09/18 08:24 CK-MB (Mass) 0.37 ng/mL (0.0-3.38) 07/09/18 08:24 Troponin I < 0.0120 ng/mL (0.00-0.120) 07/09/18 08:24 Total Protein 6.5 g/dL (6.3-8.3) 07/13/18 06:28 Albumin 3.7 g/dL (3.5-5.0) 07/13/18 06:28 Globulin 2.8 gm/dL (2.2-3.9) 07/13/18 06:28 Albumin/Globulin Ratio 1.3 (1.0-2.1) 07/13/18 06:28 Triglycerides 43 mg/dL (0-149) D 07/09/18 08:24 Cholesterol 129 mg/dL (0-199) 07/09/18 08:24 LDL Cholesterol Direct 77 mg/dL (0-129) 07/09/18 08:24 HDL Cholesterol 50 mg/dL (30-70) 07/09/18 08:24 Amylase 55 U/L (30-110) 07/09/18 05:37 Lipase 28 U/L (23-300) 07/09/18 00:37 TSH 3rd Generation 0.60 mIU/L (0.46-4.68) 07/10/18 19:03 Urine Color Yellow (YELLOW) 07/08/18 18:16 Urine Clarity Hazy (Clear) 07/08/18 18:16 Urine pH 6.0 (5.0-8.0) 07/08/18 18:16 Ur Specific [place] 1.024 (1.003-1.030) 07/08/18 18:16 Urine Protein 1+ mg/dL (NEGATIVE) H 07/08/18 18:16 Urine Glucose (UA) Normal mg/dL (Normal) 07/08/18 18:16 Urine Ketones Trace mg/dL (NEGATIVE) 07/08/18 18:16 Urine Blood 3+ (NEGATIVE) H 07/08/18 18:16 Urine Nitrate Negative (NEGATIVE) 07/08/18 18:16 Urine Bilirubin Negative (NEGATIVE) 07/08/18 18:16 Urine Urobilinogen Normal mg/dL (0.2-1.0) 07/08/18 18:16 Ur Leukocyte Esterase Neg Kumar/uL (Negative) 07/08/18 18:16 Urine WBC (Auto) 2 /hpf (0-5) 07/08/18 18:16 Urine RBC (Auto) 273 /hpf (0-3) H 07/08/18 18:16 Ur Squamous Epith Cells 1 /hpf (0-5) 07/08/18 18:16 Urine Bacteria Rare (<OCC) 07/08/18 18:16 Urine HCG, Qual Negative (NEGATIVE) 07/08/18 18:16 Urine Opiates Screen Positive (NEGATIVE) H 07/09/18 12:16 Urine Methadone Screen Negative (NEGATIVE) 07/09/18 12:16 Ur Barbiturates Screen Negative (NEGATIVE) 07/09/18 12:16 Ur Phencyclidine Scrn Negative (NEGATIVE) 07/09/18 12:16 Ur Amphetamines Screen Negative (NEGATIVE) 07/09/18 12:16 U Benzodiazepines Scrn Negative (NEGATIVE) 07/09/18 12:16 U Oth Cocaine Metabols Negative (NEGATIVE) 07/09/18 12:16 U Cannabinoids Screen Negative (NEGATIVE) 07/09/18 12:16 Blood Type B POSITIVE 07/09/18 02:32 Antibody Screen Negative 07/09/18 02:32 Attending/Attestation - Attestation I have personally seen and examined this patient.: Yes I have fully participated in the care of the patient.: Yes I have reviewed all pertinent clinical information, including history, physical exam and plan: Yes Notes (Text): 07/13/18 17:11 Medical attending: Patient was seen and examined by me with the medical record coder and I reviewed the above note by the resident and agree The patient will be DC today. She has been tolerating diet very well now for past two days. Nevertheless we advised her to eat slowly and to avoid foods with high fat content The patient for the time being should avoid the Eliquis. The patient was not short of breath, no palpitations, no chest pain, ambulating is ok as well She will need to have follow up imaging of the pancrease again in the future as outpatient Rolan Arevalo 07/13/18 17:15
== END 2018-07-13 13:29 | disposition home or self-care (01) | DRG 282 ==
LOC: C.ER 17:26 → C.9I 07-09 01:53
PROVIDERS: ADMIT Hospitalist; ATTEND Hospitalist
DX: K85.90 Acute pancreatitis without necrosis or infection, unspecified (principal); R18.8 Other ascites; I47.1 Supraventricular tachycardia; K76.0 Fatty (change of) liver, not elsewhere classified; E83.51 Hypocalcemia; I48.91 Unspecified atrial fibrillation; I10 Essential (primary) hypertension; D50.9 Iron deficiency anemia, unspecified; Z86.711 Personal history of pulmonary embolism; E87.6 Hypokalemia; R31.9 Hematuria, unspecified; D17.71 Benign lipomatous neoplasm of kidney

== ENCOUNTER 2018-08-04 09:13 | Outpatient (CLI) | payer SELFPAY | END 2018-08-04 09:14 | disposition home or self-care (01) | LOC: C.LAB 09:13 ==

== ENCOUNTER 2018-08-24 10:29 | Outpatient (CLI) | payer SELFPAY | END 2018-08-24 10:30 | disposition home or self-care (01) | LOC: C.RADH 10:29 ==